=== PATIENT | female | born 1945 | race Caucasian/White ===

== ENCOUNTER 2018-08-13 22:01 | Inpatient (IN) ==
[2018-08-13] MEDS ORDERED: KETAMINE ONE (22:21)
[2018-08-13] MEDS ORDERED: KETAMINE IV ONE (22:23)
[2018-08-13] MEDS ORDERED: VERSED ONE (22:27)
[2018-08-13] MEDS ORDERED: VERSED IV ONE ×3 (22:27→22:54)
[2018-08-13] MEDS: LEVOPHED 8 MG in D5 1/2 NS 250 ML IV SCH (22:40)
[2018-08-13 22:49] LABS: ALLEN TEST YES; BLOOD TYPE ARTERIAL; HCO3-(ACT) 21.1 mmoll (20.0-26.0); METHB 0.6 % (0.0-1.5); O2(CT) 12.8 mL/dL (15.0-23.0); O2HB 97.7 % (95.0-99.0); PCO2(98.6) 33 mmHg (35-45); PO2(98.6) 191 mmHg (60-100); SAMPLE BLOOD; SAO2 100.3 % (95.0-100.0); pH(98.6) 7.38 (7.35-7.45)
[2018-08-13 22:59] LABS: BASO# 0.02 X1000 (0.0-0.2); BASO% 0.1 % (0.0-0.8); EOS# 0.01 X1000 (0.0-0.7); HEMATOCRIT 39.1 % (37.0-47.0); HEMOGLOBIN 11.6 g/dL (12.0-16.0); IMM GRAN% 0.4 % (0.0-0.5); LYMPH# 1.14 X1000 (1.2-3.4); LYMPH% 5.1 % (20.5-51.1); MCH 25.6 PG (27-31); MCHC 29.7 g/dL (33-37); MCV 86.1 FL (81-99); MONO# 0.48 X1000 (0.11-0.59); MONO% 2.2 % (1.7-9.3); NEUT# 20.51 X1000 (1.4-6.5); NEUT% 92.2 % (42.2-75.2); PLT 157 X1000 (130-400); RBC 4.54 XMIL (4.2-5.4); RDW 19.1 % (11.5-14.5); WBC 22.26 X1000 (4.8-10.8)
[2018-08-13] MEDS ORDERED: VERSED 100 MG in NS 80 ML IV SCH (23:00)
[2018-08-13 23:01] LABS: URINE SOURCE CATH
[2018-08-13] MEDS ORDERED: NS 2,000 ML ONE (23:03)
[2018-08-13 23:04] LABS: BILIRUBIN URINE NEGATIVE (NEGATIVE); BLOOD URINE NEGATIVE (NEGATIVE); COLOR YELLOW; GLUCOSE URINE NEGATIVE (NEGATIVE); KETONE URINE NEGATIVE (NEGATIVE); LEUKOCYTES URINE NEGATIVE (NEGATIVE); NITRITE URINE NEGATIVE (NEGATIVE); PH URINE 5.5; PROTEIN URINE 30 mg/dL (NEGATIVE); SP GRAVITY URINE 1.025; TURBIDITY URINE CLEAR (CLEAR); UROBILINOGEN URINE NORMAL (NORMAL)
[2018-08-13 23:07] LABS: MODALITY AMBU BAG
[2018-08-13] MEDS ORDERED: NS 1,000 ML, NS 1,000 ML IV ONE ×2 (23:07)
[2018-08-13] MEDS ORDERED: NS 1,000 ML IV ONE ×2 (23:10→23:11)
[2018-08-13 23:11] LABS: LARGE PLATELETS 1+; LYMPHS 6 % (21-51); MONO 4 % (1-9); SEGS 90 % (42-75)
[2018-08-13 23:13] LABS: UR EPITHELIAL CELLS <10 /HPF (<10); URINE RBC <10 /HPF (<10); URINE WBC <10 /HPF (<10)
[2018-08-13 23:14] LABS: URINE BACTERIA 1+ /HPF; URINE CASTS WAXY PRESENT; URINE YEAST PRESENT
[2018-08-13 23:15] LABS: URINE CRYSTALS NONE SEEN; URINE SMALL ROUND CELLS NONE SEEN
[2018-08-13 23:32] LABS: ALB/GLOB RATIO 0.5; ALBUMIN 2.3 g/dL (3.5-5.0); CALCIUM 10.7 mg/dL (8.8-10.2); CREATININE 2.3 mg/dL (0.5-0.9); MAGNESIUM 2.7 mg/dL (1.5-2.7); PHOSPHORUS 4.7 mg/dL (2.7-4.5); POTASSIUM 3.9 mmol/L (3.5-5.1); TOTAL BILIRUBIN 0.82 mg/dL (0.20-1.00); TOTAL PROTEIN 7.4 g/dL (6.3-8.3)
[2018-08-13] MEDS ORDERED: 1/2 NS 1,000 ML ONE (23:39)
[2018-08-14] MEDS ORDERED: 1/2 NS 1,000 ML IV ONE (00:32)
[2018-08-14] MEDS ORDERED: PROTONIX IV SCH (02:00)
[2018-08-14] MEDS ORDERED: HEPARIN SUBQ SCH (02:00)
[2018-08-14 02:51] LABS: UR AMPHETAMINES QUAL NONE DETECTED (NONE DETECT); UR BARBITUATES QUAL NONE DETECTED (NONE DETECT); UR BENZODIAZEPIN QUAL PRESUMPTIVE POSITIVE (NONE DETECT); UR CANNABINOIDS QUAL NONE DETECTED (NONE DETECT); UR COCAINE QUAL NONE DETECTED (NONE DETECT); UR METHADONE QUAL NONE DETECTED (NONE DETECT); UR OPIATES QUAL NONE DETECTED (NONE DETECT); UR OXYCODONE QUAL PRESUMPTIVE POSITIVE (NONE DETECT); UR PCP QUAL NONE DETECTED (NONE DETECT)
[2018-08-14 02:56] LABS: AGAP 21; BUN 88 mg/dL (8-22); CALCIUM 9.5 mg/dL (8.8-10.2); CHLORIDE 131 mmol/L (98-107); COSMO 368; CREATININE 2.3 mg/dL (0.5-0.9); GLUCOSE 212 mg/dL (70-104); POTASSIUM 3.6 mmol/L (3.5-5.1); TCO2 18 mmol/L (25-35)
[2018-08-14 02:58] LABS: SODIUM 168 mmol/L (136-145)
[2018-08-14] MEDS: MERREM 500 MG in NS 50 ML IV SCH ×3 (03:12→18:28)
[2018-08-14] MEDS: ZYVOX 600 MG/D5W 600 MG/300 ML IVPB IV SCH ×2 (03:12→13:33)
[2018-08-14] MEDS: SODIUM CHLORIDE 0.9% INJ SCH (03:13)
[2018-08-14 04:35] LABS: BLOOD TYPE ARTERIAL; SAMPLE BLOOD
[2018-08-14 04:36] LABS: ALLEN TEST YES; BE -4.1 mmoll (-3.0-3.0); HCO3-(ACT) 21.7 mmoll (20.0-26.0); METHB 1.1 % (0.0-1.5); O2(CT) 14.8 mL/dL (15.0-23.0); O2HB 95.2 % (95.0-99.0); PCO2(98.6) 37 mmHg (35-45); PO2(98.6) 89 mmHg (60-100); SAO2 98.1 % (95.0-100.0); SRATE 14 BPM; TVOL 450 mL; pH(98.6) 7.36 (7.35-7.45)
[2018-08-14 04:40] LABS: MODALITY VENTILATOR
[2018-08-14 04:49] LABS: BASO# 0.03 X1000 (0.0-0.2); BASO% 0.1 % (0.0-0.8); EOS# 0.01 X1000 (0.0-0.7); HEMATOCRIT 35.3 % (37.0-47.0); HEMOGLOBIN 10.5 g/dL (12.0-16.0); IMM GRAN# 0.14 X1000 (0.0-0.04); IMM GRAN% 0.4 % (0.0-0.5); LYMPH# 1.19 X1000 (1.2-3.4); LYMPH% 3.8 % (20.5-51.1); MCH 25.5 PG (27-31); MCHC 29.7 g/dL (33-37); MCV 85.7 FL (81-99); MONO# 0.66 X1000 (0.11-0.59); MONO% 2.1 % (1.7-9.3); NEUT# 29.65 X1000 (1.4-6.5); NEUT% 93.6 % (42.2-75.2); PLT 143 X1000 (130-400); RBC 4.12 XMIL (4.2-5.4); WBC 31.68 X1000 (4.8-10.8)
[2018-08-14 04:52] LABS: INR 2.64
[2018-08-14 04:53] LABS: PTT 37.9 Seconds (22.3-41.8)
[2018-08-14 05:21] LABS: ALB/GLOB RATIO 0.4; ALBUMIN 1.9 g/dL (3.5-5.0); CALCIUM 8.8 mg/dL (8.8-10.2); MAGNESIUM 2.2 mg/dL (1.5-2.7); TOTAL BILIRUBIN 0.68 mg/dL (0.20-1.00); TOTAL PROTEIN 6.5 g/dL (6.3-8.3)
--- NOTE | 2018-08-14 05:58 | HISTORY AND PHYSICAL ---
CHIEF COMPLAINT: Mental status changes. HISTORY OF PRESENT ILLNESS: Ms. Hatch is a 73-year-old, female with a past medical history of pancreatic cancer, diabetes, upper extremity DVT, recent GI bleed one and a weeks ago. She was brought by her daughter via EMS due to mental status changes. As per the daughter, this patient was stable yesterday. The daughter is the one providing all the information because the patient is already intubated. Apparently, the last time she saw this patient normal was at 1 a.m. on 08/13/2018, but today, in the morning around 9 a.m., this patient was confused. She was sleepy, really hard to wake up, and she was not eating or drinking too much to the point that she only took some sips of her protein shake and she took some of her medications in the morning but then she could not take more than that. In the emergency department, we found out that this patient's vital signs were really low and she was placed on pressors. Also, she received fluids. Her pulse was stable. She was basically unresponsive and placed on mechanical ventilation. Lactate level elevated at 5.1. Sodium level 170, creatinine 2.3. Leukocytosis as well. This patient will be admitted to the intensive care unit. She will be placed on broad-spectrum antibiotics. We will recheck the lab work at this moment and then at 6 a.m. again. Pulmonary department will be consulted. Overall, her prognosis is guarded due to her age and past medical history of cancer and comorbidities. REVIEW OF SYSTEMS: Skin: She has multiple lesions on her back, mostly at her sacral area and gluteal area. It looks like excoriation and/or pressure ulcers. Respiratory: She has some rhonchi bilaterally and breath sounds are decreased at the bases. Musculoskeletal: Decreased muscle mass. The rest of the 14 points of the review of systems were checked. All of them were negative except as per HPI. PAST MEDICAL HISTORY: Recent rectal bleed around 1-1/2 weeks ago, upper extremity DVT treated with Lovenox which has been stopped due to rectal bleed, pancreatic cancer without any kind of treatment so far. Apparently, she has an appointment with her cancer doctor in [place] next on 08/19/2018. Diabetes. FAMILY HISTORY: Noncontributory. PAST SURGICAL HISTORY: Hysterectomy, middle finger surgery, and exploratory laparoscopic procedure due to bowel obstruction. SOCIAL HISTORY: This patient lives with her daughter. She used to be a heavy smoker, smoking 3 packs a day of cigarettes, but she stopped smoking 20 years ago. 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 PHYSICAL EXAMINATION: VITAL SIGNS: Right now, pulse 74, respiratory rate 17, blood pressure 90/70, oxygen saturation 100% on mechanical ventilation. HEENT: Head normocephalic. No trauma. PERRLA. NECK: Supple. I do not see any JVD. Central trachea. CHEST: Coarse breath sounds bilaterally with generalized rhonchi and decreased breath sounds at the bases. ABDOMEN: Soft. Nondistended. I do feel a mass in the periumbilical area. I do believe its inside the abdominal wall on the right side, measuring around 4 x 1.5 cm. No secretion. Positive bowel sounds. EXTREMITIES: There is 2 to 3+ lower extremity edema. No clubbing but the lower extremities have cyanosis bilaterally. We did not find any pulse, even with the Doppler. NEUROLOGICAL EXAMINATION: The patient is on mechanical ventilation and sedated. BACK: With multiple ulcers, mostly at the level of the sacral area and gluteal area, with some redness. No secretions. LABORATORY: WBC 22.6, hemoglobin 11.6, hematocrit 39.1, platelets 157,000. Sodium 170, potassium 3.9, chloride 130, bicarbonate 22, BUN 78, creatinine 2.3, glucose 219, calcium 10.7. AST 63, ALT 43, alkaline phosphatase 134. ASSESSMENT AND PLAN: 1. Metabolic encephalopathy. As per the daughter, who is a poor historian, this patient was fine yesterday and today in the morning, she started having confusion, and she was not eating or drinking too much. The patient was getting worse during the day. She has electrolyte imbalance, acute kidney injury. I do not see any big source of infection. I do not think she has pneumonia but she has some lesions on her back. Urinalysis looks fine but her WBC is also elevated so I will place this patient on broad-spectrum antibiotics. 2. Shock. She has been placed on Levophed at the emergency department. She received some fluid which has been changed from normal saline to half normal saline because of the hypernatremia. I will check the blood sodium again. Lactate level is elevated at 5.1. 3. Hypernatremia. She already received some fluid in the emergency department and has been changed to half normal saline. I will check a sodium level right now to see how she does and if she is doing better, I will continue with the same treatment. Otherwise, I will switch it to D5 water. 4. Acute kidney injury. I do have a creatinine from May 2018 that was completely normal at 0.7. Today, the creatinine is 2.3. We have placed a Greer catheter. Likely , this represents an acute tubular necrosis. We will continue with the intravenous fluids. We will recheck the creatinine again and I will follow closely the urine output. 5. Leukocytosis. This patient has been placed on broad-spectrum antibiotics. I have requested blood culture and urine culture. 6. Respiratory failure. Also, this patient has been intubated due to her severe metabolic encephalopathy to protect the airway. Pulmonary department has been consulted. 7. Elevated liver function tests, likely secondary to shock liver. We will monitor. 8. Pancreatic cancer. Apparently, this patient has not been started on any kind of treatment. She has an oncologist apparently in [place], [place]. 9. History of gastrointestinal bleed. This is a recent diagnosis. She had a gastrointestinal bleed 1-1/2 weeks ago. We will avoid blood thinners for now and I cannot put VIVIEN hoses or put sequential compression devices on because of her bilateral lower extremity cyanosis. 10. History of deep venous thrombosis at the level of the upper extremity. For now, we will just monitor. Apparently, that was secondary to a peripherally inserted central catheter line. 11. Diabetes. I have placed this patient on a sliding scale insulin and pattern of blood sugar. 12. This patient is remarkably sick. I had a conversation with the daughter. I will also discuss her resuscitation status. For now, she wants her mom to be Full Code. cc: Daniel Valentino MD MTDD
--- NOTE | 2018-08-14 06:09 | Diag Imaging Result Doc PS360 ---
EXAM: CT HEAD W/O CONTRAST HISTORY: ams TECHNIQUE: CT head without contrast COMPARISON: 03/13/2018 FINDINGS: No parenchymal hemorrhage. No epidural or subdural hematoma. No subarachnoid hemorrhage. No mass identified on this noncontrasted exam. No hydrocephalus. No sinus opacification. IMPRESSION: No hemorrhage. Negative brain CT without contrast. A preliminary report was given at 12:26 AM. This exam was performed using automated exposure control, adjustment of mA or kV according to patient size, and/or use of iterative reconstruction technique. Electronically signed by Kevin Puga 08/14/2018 6:06 AM
[2018-08-14] MEDS: HUMULIN R SUBQ SCH ×5 (06:26→22:39)
[2018-08-14] MEDS: TEARISOL OPH SOLUTION BOTH EYES PRN (06:27)
--- NOTE | 2018-08-14 07:21 | Diag Imaging Result Doc PS360 ---
EXAM: CHEST-PORTABLE 08/14/2018 HISTORY: Mechanical ventilation TECHNIQUE: AP portable at 0555 COMMENT: There is an endotracheal tube with its tip at thoracic inlet and an NG tube which is looped into the stomach and then back up into the esophagus. There are increased interstitial markings in both lung bases with apparent subsegmental atelectasis particularly in the left lower lobe. The inspiration is less optimal than on 08/13/2018. IMPRESSION: Mild pulmonary edema and left lower lobe atelectasis versus pneumonia. Electronically signed by Eugene Donaldson 08/14/2018 7:19 AM
--- NOTE | 2018-08-14 07:24 | EKG Report ---
Test Performed on : 08/13/2018 10:09:11 PM Test Reason : AMS Blood Pressure : / mmHG Vent. Rate : 105 BPM Atrial Rate : 064 BPM P-R Int : 126 ms QRS Dur : 060 ms QT Int : 476 ms P-R-T Axes : 039 067 069 degrees QTc Int : 629 ms Undetermined rhythm Low voltage QRS ST elevation, consider early repolarization, pericarditis, or injury ST & T wave abnormality, consider anterolateral ischemia Prolonged QT Abnormal ECG No previous ECGs available Unconfirmed Result
--- NOTE | 2018-08-14 07:32 | Diag Imaging Result Doc PS360 ---
EXAM: CHEST/ABD TUBE PLACEMENT 08/13/2018 HISTORY: ett placement TECHNIQUE: AP portable at 2240 COMMENT: There is an NG tube with its tip below the diaphragm apparently in the stomach. There is an endotracheal tube with its tip at the thoracic inlet. There is ill-defined opacity in the left lower lobe consistent with bronchopneumonia. IMPRESSION: Left lower lobe pneumonia. Electronically signed by Eugene Donaldson 08/14/2018 7:30 AM
[2018-08-14 09:30] LABS: ALB/GLOB RATIO 0.4; CALCIUM 8.8 mg/dL (8.8-10.2); CREATININE 2.4 mg/dL (0.5-0.9); POTASSIUM 3.7 mmol/L (3.5-5.1); TOTAL BILIRUBIN 0.56 mg/dL (0.20-1.00); TOTAL PROTEIN 7.4 g/dL (6.3-8.3)
[2018-08-14] MEDS: ALBUMIN 25% IV SCH ×3 (10:09→18:28)
[2018-08-14] MEDS: LEVOPHED 8 MG in D5 1/2 NS 250 ML IV SCH (10:10)
[2018-08-14] MEDS: D5W 1,000 ML IV SCH ×4 (10:10→23:22)
--- NOTE | 2018-08-14 10:44 | PROGRESS NOTE ---
DATE: 08/14/2018 OVERNIGHT EVENTS: Ms. Hatch was admitted for suspected septic shock, acute encephalopathy, obtundation, acute respiratory failure, needing intubation, mechanical ventilation, profound metabolic encephalopathy, and severe hypernatremia. Overnight, she was continued on intravenous fluids and broad-spectrum antibiotics. SUBJECTIVE: At the time of my evaluation, patient is obtunded. She is off sedative intravenous midazolam since about 2.5 hours. Currently, vitals evaluation suggest her temperature is 99.3. She is tachycardic with pulse of 96 per minute. She is maintaining MAP more than 65, requiring norepinephrine only minimal. She is on 100% mechanical ventilation. OBJECTIVE: General: Obtunded, does not appear in any acute distress. Pupils: Bilateral round and reacting. Lungs: Air entry bilaterally equal. No wheeze, rhonchi, or crackles. Cardiovascular: S1, S2 normal. Tachycardic. No murmur, rub, or gallop. Abdomen: Soft, nontender. Active bowel sounds. She just had a bowel movement. The stool appears dark brown without any obvious blood or melena. It is liquidy. Lower extremity: She has bilateral mild pitting lower extremity edema, left more than right. Lines: She has a urine catheter. She has an external jugular vein intravenous catheter. Neurologic: She is obtunded. She is not responding to painful stimuli in the upper extremities. LABS: Suggest persistent leukocytosis, normocytic anemia, normal platelet count, elevated INR, pO2 of 89 on 100% FiO2 suggesting of wide arterial alveolar gradient, severe hypernatremia, which is improving. Severe hyperchloremia, acute kidney injury with minimum urine output suggesting acute tubular necrosis, persistent transaminitis, persistent lactic acidosis. Blood cultures have not been drawn yet. IMAGING: Head CT had suggested no hemorrhage. Chest x-ray had suggested left lower lobe atelectasis, infiltrate. ASSESSMENT AND PLAN: 1. Suspected septic shock with unclear source of infection. She does have left lower lobe haziness, however, no well-defined consolidation. So pneumonia, as a source of infection, could not be totally ruled out. Urine culture is in lab. Continue intravenous linezolid and intravenous meropenem. Try and collect blood cultures to get the final results and modify antibiotics accordingly. 2. Acute toxic metabolic encephalopathy, likely in the setting of septic shock, severe hypernatremia. 3. Uremia with possible contribution from hepatic encephalopathy. Continue to address underlying cause. 4. Acute respiratory failure with severe alveolar-arterial gradient. Continue mechanical ventilation. Pulmonology on board. I will get ultrasound lower extremity to rule out deep vein thrombosis and possible venous thromboembolism. 5. Coagulopathy could be in the setting of acute liver failure. I will follow up D-dimer and monitor her for disseminated intravascular coagulation. 6. Severe hypernatremia and hyperchloremia, could be in the setting of severe free water volume depletion because of poor p.o. intake. The history is uncertain. I will try and get in touch with the patient's daughter to evaluate for that. Continue D5 water and monitor frequent electrolytes. 7. Acute kidney injury with likely acute tubular necrosis, likely in the setting of profound hypotension and septic shock that she presented with. Monitor input and output with Greer catheter and serial basic metabolic panels. 8. Recent diagnosis off pancreatic cancer. Apparently, she has not been started on any kind of therapy, as per the family and previous documentation. Aware. In the future, I will consider consulting Oncology if needed. 9. History of gastrointestinal bleed, about 1 to 2 weeks ago. Continue intravenous Protonix. I will make it b.i.d. 10. History of deep venous thrombosis of upper extremity associated with peripherally inserted central catheter line aware. I will avoid anticoagulation at the moment considering her coagulopathy. 11. History of diabetes. Continue blood sugar checks every 4 hours. If needed, I will start her on sliding scale insulin. 12. More than 30 minutes of critical care time was spent in taking of this patient. I have daughter's contact information. I will try and reach out to her. Apparently, there has not been any family member visiting her today. I would also consult palliative care considering her critical condition and recent diagnosis of pancreatic cancer. According to previous documentation, she is full code. cc: Rickie Saab MD
[2018-08-14] MEDS ORDERED: NS 250 ML ONE (11:17)
--- NOTE | 2018-08-14 11:24 | PULMONOLOGY CONSULTATION ---
DATE: 08/14/2018 REQUESTING PHYSICIAN: Dr. Saab. REASON FOR CONSULTATION: Respiratory failure. HISTORY OF PRESENT ILLNESS: Ms. Hatch is a 73-year-old white female who was evaluated in our hospital in May complaining of abdominal pain. CT scan of the abdomen and pelvis was consistent with severe sigmoid colitis along with significant abnormality of the pancreas consistent with pancreatitis or neoplasm. She was evaluated by Dr. Damon who discussed the case with Dr. Shepard who had seen her on a previous admission in [place] and felt she had pancreatic necrosis. History after that visit is not known. The patient presented to our Emergency Room by EMS. She was completely unresponsive. She was in shock. She was intubated and initiated on mechanical ventilation. PAST MEDICAL HISTORY AND PROBLEM LIST: 1. Abnormal pancreas with possible pancreatic cancer. By report she is scheduled to be evaluated in [place] in the next 5 days. 2. Coronary artery disease with prior myocardial infarction. 3. Diabetes mellitus. 4. History of deep vein thrombosis associated with a PICC line in the left upper lobe. 5. History of glaucoma. 6. Status post hysterectomy. 7. Status post finger surgery. 8. Status post colon resection. SOCIAL HISTORY: No alcohol use listed. By report she stopped smoking in 1999. FAMILY HISTORY: Not available. REVIEW OF SYSTEMS: Not available but nursing intake indicates frequent diarrhea along with significant weight loss. PHYSICAL EXAMINATION: General: Physical exam reveals a frail, chronically ill- appearing, white female with evidence of temporal wasting on mechanical ventilation. She is currently on Levophed for shock. By report she has received 3 L of saline resuscitation although this is not well documented. Vital Signs: BP 112/78, heart rate 99, respiratory rate 16, and oxygen saturation 97% on mechanical ventilation. HEENT: Pupils are equal but sluggish. Oropharynx appears dry. NECK: Supple. Respiratory: The chest reveals coarse rhonchi throughout all lung esposito. Cardiac: Regular rate. Normal S1. Normal S2. Gastrointestinal: The abdomen is soft with no bowel sounds present. Extremities: The extremities reveal edema of the left leg suspicious for deep vein thrombosis. LABORATORIES: White blood count is 31.7, hemoglobin 10.5, and platelet count 143,000. Sodium is 163, potassium 3.7, chloride 129, bicarbonate 21, BUN 93, creatinine 2.4, AST 297, ALT 130, and alkaline phosphatase 119. CEA level is 8.2. Arterial blood gas reveals a pH of 7.36, pCO2 of 37, and pO2 of 89 with a lactate on admission of 5.1 and a current lactate of 2.7. Head CT reveals no acute changes. Chest x-ray reveals an endotracheal tube in good position. Left lower lobe pneumonia. IMPRESSION: A 73-year-old with the diagnosis of pancreatic cancer (details confirming this diagnosis are limited) who is admitted with acute hypoxemic respiratory failure , pneumonia, septic shock, hypernatremia, acute renal failure, leukocytosis, dehydration, diarrhea, deep vein thrombosis (patient is already anticoagulated with an INR of 2.6), and severe protein calorie malnutrition. Her prognosis appears to be guarded to very poor. RECOMMENDATIONS: 1. Continue full ventilatory support. 2. Collect blood cultures for septic shock. 3. Obtain sputum for WASHER CARCASS. 4. Continue resuscitation. The patient has been initiated on D5W and her sodium will be followed. 5. Venous Dopplers of the left lower extremity. 6. Prognosis is guarded to poor. Anticipate the need for end of life discussions with the family. Time spent and critical care management: 1+ hours cc: Jeremiah Garcia MD [facility]
--- NOTE | 2018-08-14 11:26 | PROGRESS NOTE ---
DATE: 08/14/2018 I called the patient's daughter, Ms. Salazar, at [phone]. I informed her about Ms. Hatch's critical condition. I informed her about Ms. Hatch's likely poor prognosis considering multiple comorbidities and current critical condition. I answered all of her questions. Currently Ms. Salazar wanted Ms. Hatch to be a full code as Ms. Hatch had previously expressed her wishes that she wanted to be a full code. However, the patient's daughter is reconsidering course of care. I will also consult Palliative Care. cc: Rickie Saab MD
[2018-08-14 15:28] LABS: CALCIUM 8.9 mg/dL (8.8-10.2); CREATININE 2.4 mg/dL (0.5-0.9)
[2018-08-14] MEDS ORDERED: MORPHINE IV PRN (17:05)
[2018-08-14] MEDS: PROTONIX IV SCH (18:28)
--- NOTE | 2018-08-14 20:11 | PROGRESS NOTE ---
DATE: 08/14/2018 SUBJECTIVE: I was informed by the Palliative Care team that after Palliative Care team's discussion with patient's daughter who is a surrogate decision maker the patient's daughter has decided to make the patient DNR level 1. However, I could not be present during this conversation. I was also informed by the nursing team that after stopping midazolam drip now, the patient has started becoming a little restless and is coughing on ventilator, so I have ordered IV p.r.n. morphine. I will try and go to bedside again during the day and try and talk with patient's daughter in person with whom I have talked on phone earlier. cc: Rickie Saab MD
--- NOTE | 2018-08-14 22:23 | PROGRESS NOTE ---
DATE: 08/14/2018 SUBJECTIVE: I went to bedside and talked with the patient's daughter at bedside. I also looked at some of the test results that she showed me on her cellphone. On the cellphone, it was listed that there was a diagnosis of pancreatic carcinoma with metastasis to liver and peritoneal carcinomatosis made. However, I have requested official records from [facility] and [facility]. I was also given the provided following history by the patient's daughter at bedside that the patient has had massive abdominal ascites. The ascites was worsening for which she had gone to [place] initially, and they had made a diagnosis of metastatic adenocarcinoma without any further diagnosis, so she had eventually gone to [facility] where extensive testing was done including ultrasound-guided paracentesis, upper endoscopy, and a biopsy was taken. I am unsure from what place. 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 The patient's daughter also informs me that she was diagnosed with PICC-line associated DVT and was supposed to be on enoxaparin subcutaneous. However, the patient had developed GI bleed for which she was again taken to [facility], and she had undergone sigmoidoscopy, and it was diagnosed that she had diverticulosis. I have requested further documentation from both the medical centers before I can confirm these histories. Meanwhile, I will continue with the current treatment regimen. I also confirmed the code status. The patient is DNR level 1. The daughter was tearful, and I offered my support. cc: Rickie Saab MD
[2018-08-14 23:32] LABS: CALCIUM 8.4 mg/dL (8.8-10.2); CREATININE 2.3 mg/dL (0.5-0.9); POTASSIUM 2.8 mmol/L (3.5-5.1)
[2018-08-14] MEDS ORDERED: POTASSIUM CHLORIDE 40 MEQ/SWI 40 MEQ/100 ML IVPB IV ONE (23:57)
[2018-08-14] MEDS ORDERED: POTASSIUM CHLORIDE 10% LIQUID PO ONE (23:57)
[2018-08-15] MEDS: HUMULIN R SUBQ SCH ×6 (00:49→21:00)
[2018-08-15] MEDS: ZYVOX 600 MG/D5W 600 MG/300 ML IVPB IV SCH ×2 (00:59→13:14)
[2018-08-15] MEDS: MERREM 500 MG in NS 50 ML IV SCH ×3 (02:21→18:30)
[2018-08-15] MEDS: D5W 1,000 ML IV SCH ×4 (04:50→23:30)
[2018-08-15 05:28] LABS: HEMOGLOBIN A1C 6.4 % (4.8-6.0)
[2018-08-15 05:30] LABS: ALLEN TEST YES; BE -5.6 mmoll (-3.0-3.0); BLOOD TYPE ARTERIAL; HCO3-(ACT) 20.6 mmoll (20.0-26.0); METHB 1.1 % (0.0-1.5); O2(CT) 11.2 mL/dL (15.0-23.0); O2HB 96.7 % (95.0-99.0); PCO2(98.6) 26 mmHg (35-45); PO2(98.6) 102 mmHg (60-100); SAMPLE BLOOD; SRATE 15 BPM; THB 8.1 g/dL (11.5-17.4); TVOL 600 mL; pH(98.6) 7.44 (7.35-7.45)
[2018-08-15 05:31] LABS: INR 3.17; PROTIME 34.7 Seconds (11.0-16.0)
[2018-08-15 05:32] LABS: PTT 52.5 Seconds (22.3-41.8)
[2018-08-15 05:34] LABS: MODALITY VENTILATOR
[2018-08-15 05:35] LABS: ALB/GLOB RATIO 0.7; ALBUMIN 2.6 g/dL (3.5-5.0); CALCIUM 8.8 mg/dL (8.8-10.2); CREATININE 2.2 mg/dL (0.5-0.9); TOTAL BILIRUBIN 0.63 mg/dL (0.20-1.00); TOTAL PROTEIN 6.3 g/dL (6.3-8.3)
[2018-08-15 05:43] LABS: D-DIMER 15.19 ug/mLFEU (0.0-0.52)
[2018-08-15 05:57] LABS: PHOSPHORUS 1.6 mg/dL (2.7-4.5)
[2018-08-15 06:25] LABS: HEMATOCRIT 24.7 % (37.0-47.0); HEMOGLOBIN 7.6 g/dL (12.0-16.0); MCH 25.8 PG (27-31); MCHC 30.8 g/dL (33-37); MCV 83.7 FL (81-99); PLT 91 X1000 (130-400); RBC 2.95 XMIL (4.2-5.4); WBC 14.01 X1000 (4.8-10.8)
--- NOTE | 2018-08-15 06:54 | Diag Imaging Result Doc PS360 ---
EXAM: CHEST-PORTABLE HISTORY: respiratory failure TECHNIQUE: Portable chest, single view COMPARISON: 08/14/2018 FINDINGS: No change in the endotracheal tube or nasogastric tube. There is a small left pleural effusion and there is underlying atelectasis or infiltrates in the lower left lung. The vessels are not distended. IMPRESSION: Stable left pleural effusion with basilar atelectasis versus infiltrates. Electronically signed by Kevin Puga 08/15/2018 6:52 AM
[2018-08-15] MEDS: SODIUM CHLORIDE 0.9% INJ SCH (07:32)
[2018-08-15] MEDS: PROTONIX IV SCH ×2 (07:32→17:50)
--- NOTE | 2018-08-15 09:11 | PULMONOLOGY PROGRESS NOTE ---
DATE: 08/15/2018 SUBJECTIVE: She remains off sedation and poorly responsive. She remains on vasopressors. She remains on mechanical ventilation. OBJECTIVE: BP 108/68, heart rate 76, respiratory rate 23. Oxygen saturation 100%. She is afebrile for the last 24 hours. HEENT: Pupils are equal but sluggish. Oropharynx appears dry. Neck is supple. Chest reveals coarse rhonchi bilaterally. Cardiac Exam: Regular rate. Normal S1, normal S2. Abdomen is soft, with positive bowel sounds. Extremities reveal trace edema. LABORATORIES: White blood count 14.1, hemoglobin 7.6, platelet count 91,000. Sodium 146, potassium 3.0, chloride 115. Bicarbonate 18. BUN 79, creatinine 2.2. Chest x-ray reveals bibasilar infiltrates and effusion and unchanged. Arterial blood gas, pH 7.44, pCO2 of 26, PO2 of 102. IMPRESSION: A 73-year-old with 1. Presumptive pancreatic cancer. 2. Acute hypoxemic respiratory failure. 3. Septic shock. 4. Pneumonia. 5. Hypernatremia. 6. Acute renal failure. 7. Diarrhea. 8. Bilateral deep vein thrombosis. 9. Patient continues to be in septic shock. Her prognosis is poor. RECOMMENDATIONS: 1. Continue ventilatory support. 2. Continue fluid resuscitation. 3. Continue current antibiotics. 4. Patient's prognosis is very poor. Her code status has been addressed to allow her to have a natural . I agree with these plans. Time spent in critical care management: 30+ minutes cc: Jeremiah Garcia MD [facility]
[2018-08-15] MEDS: TIMOPTIC 0.5% OPH SOLUTION BOTH EYES SCH (09:40)
[2018-08-15] MEDS ORDERED: CALMOSEPTINE OINTMENT TOP PRN (11:21)
[2018-08-15] MEDS: LEVOPHED 8 MG in D5 1/2 NS 250 ML IV SCH (11:46)
[2018-08-15] MEDS ORDERED: NS 250 ML ONE (12:25)
[2018-08-16] MEDS: HUMULIN R SUBQ SCH ×6 (00:05→20:50)
--- NOTE | 2018-08-16 00:19 | PROGRESS NOTE ---
DATE: 08/15/2018 HISTORY: Patient continues to be markedly encephalopathic and continues to require pressors to maintain blood pressure. She is responsive only to noxious stimuli. Remains intubated on some sedation. Patient is now DNR. Family continues to want all conservative measures pursued. REVIEW OF SYSTEMS: Unable to obtain secondary to patient mental status and intubation. LABS: White count is 14.0, hemoglobin 7.6, hematocrit 24.7, platelets 91,000. PT 34.7, INR 3.1, PTT 52.5. D-dimer 15. Fibrinogen 264. On ABG, pH 7.44, pCO2 26, PO2 102, O2 saturation 99% on vent with 70% FiO2. Sodium 146, potassium is 3, chloride 115, bicarb 18, BUN 79, creatinine 2.2, glucose 307. A1c 6.4. Calcium 8.8, phosphorus 1.6, bilirubin 0.6, AST 103, ALT 82. LDH 314, total protein 6.3, albumin 2.6, lactate 3.6, TSH 0.14 and free T4 1.6. Urinalysis essentially unremarkable. UDS, oxycodone and benzodiazepines. IMAGING: Chest x-ray with stable left pleural effusion, basilar atelectasis versus infiltrate. PHYSICAL EXAMINATION: Vitals: T-max 99.3 degrees, pulse 61, respiratory rate 23, blood pressure 84/71, O2 saturation 99% on ventilator. General: No acute distress, intubated and sedated, minimally responsive to noxious stimuli only. HEENT: Normocephalic, atraumatic. Thin. No cervical adenopathy. Cardiovascular: Regular rate and rhythm. No murmurs, rubs, or gallops noted. Pulmonary: Diffuse rhonchi bilaterally. No wheezing noted. Abdomen: Soft, nontender, nondistended. Bowel sounds positive. Extremities: Peripheral pulses intact. 1+ edema bilaterally. Neurologic: Exam limited by intubation and sedation. Pupils sluggish, but reactive. No facial asymmetry. Skin: Decubitus ulcers bandaged. Bandages clean, dry, intact. ASSESSMENT AND PLAN: 1. Acute hypoxemic respiratory failure secondary to pneumonia complicated by underlying malignancy and septic shock. Continue broad-spectrum antibiotics with linezolid and Merrem. Pulmonology following. Prognosis guarded at best, more likely quite poor. 2. Septic shock secondary to pneumonia. Continue broad-spectrum antibiotics as above. Continue pressors and wean as able. 3. Pancreatic cancer with metastasis. Records from [place]. Likely poor prognosis. The patient is a DNR. We will continue to discuss goals of care with family. 4. Acute kidney injury, likely acute tubular necrosis related to septic shock. Baseline approximately 2 months ago 0.7. Creatinine relatively stable currently. Monitor closely. 5. Transaminitis, likely shock liver. Appears to be trending down somewhat. 6. Coagulopathy. Patient with decrease in blood counts, decrease in platelets and increasing INR. Initially favored DIC given septic shock, but fibrinogen within normal limits. LDH was somewhat elevated. Haptoglobin pending. No signs or symptoms of active bleeding. We will transfuse 1 unit of red cells and monitor closely. If it is not improving in the morning with treatment of underlying sepsis then we will consider hematology consult. 7. Hypernatremia. She had a drop from August 13 to August 14 170 to 152, but more reasonable decreased from 152 to 146 subsequently. Continue to monitor closely. 8. Hypokalemia. We will replete and monitor. 9. Hyperglycemia. A1c 6.4. Current hyperglycemia may be a stress response. Continue high-dose sliding scale and may consider low-dose basal insulin if hyperglycemia continues. 10. Decubitus ulcers present on admission. Antibiotics as above. Continue wound care and monitoring. 11. Protein calorie malnutrition, likely severe: Patient with failure to thrive , poor p.o. intake, weight loss, skin breakdown as above. Nutritional status likely quite poor. If she does not improve rapidly, we will likely place NG tube and start tube feeds in the next day or 2. 12. Recent peripherally inserted central catheter line associated DVT. Full records not currently available, but reportedly she was placed on Lovenox initially but then developed significant GI bleed and so was discontinued. Not currently on anticoagulation because of decreasing hemoglobin and hematocrit, increased INR. Monitor closely. 13. Deep vein thrombosis prophylaxis, SCDs. 14. Disposition. Patient was initially full code but now DNR. She has underlying metastatic pancreatic cancer and multiorgan system failure. With this combination in addition to somewhat advanced age and poor nutritional status, her prognosis is likely grim. We will continue to discuss goals of care and current situation with the patient's daughter. [facility]
[2018-08-16] MEDS ORDERED: TYLENOL PR PRN (04:09)
[2018-08-16] MEDS: MERREM 500 MG in NS 50 ML IV SCH ×3 (04:13→18:00)
[2018-08-16] MEDS: ZYVOX 600 MG/D5W 600 MG/300 ML IVPB IV SCH ×2 (04:13→13:01)
[2018-08-16 04:45] LABS: BE -5.5 mmoll (-3.0-3.0); BLOOD TYPE ARTERIAL; HCO3-(ACT) 20.6 mmoll (20.0-26.0); METHB 1.2 % (0.0-1.5); O2(CT) 14.5 mL/dL (15.0-23.0); O2HB 96.2 % (95.0-99.0); PCO2(98.6) 23 mmHg (35-45); PO2(98.6) 93 mmHg (60-100); SAMPLE BLOOD; SAO2 98.7 % (95.0-100.0); SRATE 15 BPM; THB 10.6 g/dL (11.5-17.4); TVOL 600 mL; pH(98.6) 7.47 (7.35-7.45)
[2018-08-16 04:46] LABS: MODALITY VENTILATOR
[2018-08-16 04:59] LABS: BASO# 0.01 X1000 (0.0-0.2); BASO% 0.1 % (0.0-0.8); EOS# 0.19 X1000 (0.0-0.7); EOS% 1.2 % (0.0-10.0); HEMATOCRIT 32.1 % (37.0-47.0); HEMOGLOBIN 10.7 g/dL (12.0-16.0); IMM GRAN# 0.08 X1000 (0.0-0.04); IMM GRAN% 0.5 % (0.0-0.5); LYMPH# 0.98 X1000 (1.2-3.4); LYMPH% 6.1 % (20.5-51.1); MCH 26.1 PG (27-31); MCHC 33.3 g/dL (33-37); MCV 78.3 FL (81-99); MONO# 0.47 X1000 (0.11-0.59); MONO% 2.9 % (1.7-9.3); NEUT# 14.41 X1000 (1.4-6.5); NEUT% 89.2 % (42.2-75.2); PLT 84 X1000 (130-400); RDW 17.3 % (11.5-14.5); WBC 16.14 X1000 (4.8-10.8)
[2018-08-16 05:19] LABS: ALBUMIN 2.3 g/dL (3.5-5.0); CALCIUM 8.8 mg/dL (8.8-10.2); CREATININE 1.8 mg/dL (0.5-0.9); POTASSIUM 2.6 mmol/L (3.5-5.1); TOTAL BILIRUBIN 1.1 mg/dL (0.20-1.00); TOTAL PROTEIN 5.6 g/dL (6.3-8.3)
[2018-08-16 06:25] LABS: ALLEN TEST YES
--- NOTE | 2018-08-16 06:56 | Diag Imaging Result Doc PS360 ---
EXAM: CHEST-PORTABLE HISTORY: respiratory failure TECHNIQUE: Chest single view COMPARISON: 08/15/2018 FINDINGS: No change in endotracheal or nasogastric tubes. There is a small left pleural effusion and there are infiltrates in the left lower lobe. Right lung remains well expanded and clear. No cardiomegaly. IMPRESSION: Persistent left lower lobe pneumonia with atelectasis. Electronically signed by Kevin Puga 08/16/2018 6:54 AM
[2018-08-16 07:18] LABS: BANDS 7 % (0-1); LYMPHS 10 % (21-51); NRBC 2 % (0-0); SEGS 83 % (42-75)
[2018-08-16 08:16] LABS: INR 1.82
[2018-08-16] MEDS: PROTONIX IV SCH ×2 (08:31→17:36)
[2018-08-16] MEDS: D5W 1,000 ML IV SCH (08:53)
[2018-08-16] MEDS: POTASSIUM CHLORIDE 20 MEQ/SWI 20 MEQ/100 ML IVPB IV SCH ×2 (08:54→10:53)
[2018-08-16] MEDS: TIMOPTIC 0.5% OPH SOLUTION BOTH EYES SCH (08:55)
[2018-08-16] MEDS: NS 1,000 ML IV SCH (10:07)
--- NOTE | 2018-08-16 12:53 | Extremity Venous Study ---
PROCEDURE NAME: Venous U/S Bilateral Legs - 08/14/2018 BILATERAL LOWER EXTREMITY VENOUS STUDY: REQUESTING PHYSICIAN: Dr. Saab. ACTUARIAL TECHNICIAN: [place]. INDICATIONS: 1. Edema. 2. The patient is on the ventilator. EQUIPMENT: [employer] Vivid E9 ultrasound system with 9-LD transducer. FINDINGS: Images of the bilateral lower extremity venous systems were obtained in both sagittal and transverse planes. Doppler was used to evaluate veins for spontaneity, phasicity, respiratory excursion, and digital augmentation. RESULTS: Extensive DVT noted bilaterally and superficial venous thrombosis noted bilaterally. INTERPRETATION: Extensive bilateral deep venous and superficial venous thrombosis. Per the autobody technician's note, a report was given to Renaldo, nurse in the ICU, at 1 p.m. cc: MD Rickie Reddy MD
[2018-08-16] MEDS ORDERED: HEPARIN IV ONE (15:34)
[2018-08-16] MEDS ORDERED: HEPARIN IV PRN (15:34)
[2018-08-16] MEDS: HEPARIN 25,000 UNITS/D5W 25,000 UNIT/250 ML IV.SOLN IV SCH (17:29)
[2018-08-16] MEDS: LEVOPHED 8 MG in D5 1/2 NS 250 ML IV SCH (20:49)
--- NOTE | 2018-08-16 23:21 | PROGRESS NOTE ---
DATE: 08/16/2018 INTERVAL HISTORY: The patient's encephalopathy is essentially unchanged. Continues to require significant pressure support to maintain blood pressure. Remains responsive only to noxious stimuli. Remains intubated but off all sedation. She remains critically ill, but no new acute events overnight. REVIEW OF SYSTEMS: Unable to obtain secondary to patient's mental status and intubation. LABORATORIES: WBC 16.1, hemoglobin 10.7, hematocrit 32.1, platelets 84,000. INR 1.8, PTT 222. ABG with pH 7.4, pCO2 of 23, pO2 of 93, O2 saturation 98 on ventilator. Sodium 137, potassium 2.6, chloride 107, BUN 60, creatinine 1.8, glucose 111 to 234. Phosphorus 2.4. AST 40, ALT 59, alkaline phosphatase 113, total bilirubin 1.1, total protein 5.6, albumin 2.3, lactate 2.6, pre- albumin 3.5. PHYSICAL EXAMINATION: Vital signs: T-max 100.2 degrees, pulse 74, respirations 24, blood pressure 88/61, O2 saturation 100% on ventilator. General: No acute distress. Intubated, but off sedation. Minimally responsive to noxious stimuli only. HEENT: Normocephalic, atraumatic. No cervical adenopathy. Some anisocoria noted but pupils both briskly reactive. Cardiovascular: Regular rate and rhythm. No murmur, rub, or gallops. Pulmonary: Diffuse rhonchi essentially unchanged. No wheezing noted. Abdomen: Soft, nontender, nondistended. Bowel sounds positive. Extremities: Peripheral pulses intact. 1+ edema bilaterally essentially unchanged. Neurologic: Limited by intubation and mental status. Pupils uneven but reactive as above. No facial asymmetry. No clear focal deficits. Skin: Decubitus ulcers bandaged. Bandages clean, dry, intact. ASSESSMENT AND PLAN: 1. Acute hypoxemic respiratory failure secondary to pneumonia, complicated by underlying malignancy and septic shock, on broad-spectrum antibiotics with linezolid and Merrem. Pulmonary following. Slight improvement but prognosis remains poor overall. 2. Septic shock, secondary to pneumonia. As above, continue broad-spectrum antibiotics. Little success in weaning pressors thus far. 3. Pancreatic cancer with metastasis. Patient DNR. Will continue to discuss goals of care with family. 4. Extensive deep vein thromboses. Lower extremity multiple ultrasound showing extensive superficial and deep venous thromboses noted on recent ultrasound. Anticoagulation is somewhat problematic, given anemia, thrombocytopenic, and coagulopathy that is just now beginning to resolve. Will likely start on heparin drip and monitor very closely for signs of bleeding. 5. Acute kidney injury, likely acute tubular necrosis related to septic shock. Baseline creatinine 2 months ago 0.7. Creatinine finally beginning to improve slightly. 6. Transaminitis, likely shock liver. Does appear to be improving. 7. Coagulopathy. Patient with decreased blood counts, decreased platelets, and previously increasing INR. Initially favored disseminated intravascular coagulation, given septic shock. however, Fibrinogen was normal, and INR now improving. Hemoglobin and hematocrit improved status post 1 unit packed red blood cells 08/15. Suspect this may have been due to extensive DVTs. Heparin drip as above, and monitor closely for bleeding given previous discontinuation of lovenox because of diverticular bleeding. 8. Hypernatremia. Sodium decreased from August 13 to August 14 from 170 to 152, but more gradual decrease since then. Now within normal limits. D5 is continued and placing on normal saline at conservative rate, given extensive edema. 9. Hypokalemia. Remains low. Will further replete and continue monitoring. 10. Hyperglycemia. A1c 6.4. Reasonable control with high-dose sliding scale. 11. Decubitus ulcers, present on admission. Antibiotics as above. Continue wound care and monitoring. 12. Severe protein-calorie malnutrition. Patient with failure to thrive, poor p.o. intake, weight loss. Skin breakdown as above. Attempted to start tube feeds today, but the patient almost immediately began having gagging, and when residuals were checked, it was essentially everything that had been given to her. She does not appear likely to tolerate tube feeds. If the patient survives the next few days, then we will consider TPN. 13. Deep vein thrombosis prophylaxis. SCDs up to this point. About to start heparin drip. DISPOSITION: Patient was initially Full Code but now DNR. Underlying metastatic cancer with multiorgan system failure with only slight improvement. Now also with extensive DVTs with still some coagulopathy. Combined with age and poor nutritional status, her prognosis is extremely poor. We will continue to discuss goals of care with family. [facility]
[2018-08-17] MEDS ORDERED: D50W SYRINGE IV ONE (00:07)
[2018-08-17] MEDS: ZYVOX 600 MG/D5W 600 MG/300 ML IVPB IV SCH ×2 (02:24→13:38)
[2018-08-17] MEDS: HUMULIN R SUBQ SCH ×6 (02:31→20:11)
[2018-08-17] MEDS: MERREM 500 MG in NS 50 ML IV SCH ×2 (04:24→10:15)
[2018-08-17 05:00] LABS: ALLEN TEST YES; BE -6.2 mmoll (-3.0-3.0); BLOOD TYPE ARTERIAL; HCO3-(ACT) 20.1 mmoll (20.0-26.0); METHB 0.8 % (0.0-1.5); O2(CT) 15.4 mL/dL (15.0-23.0); O2HB 97.2 % (95.0-99.0); PCO2(98.6) 21 mmHg (35-45); PO2(98.6) 123 mmHg (60-100); SAMPLE BLOOD; SAO2 99.7 % (95.0-100.0); SRATE 15 BPM; THB 11.1 g/dL (11.5-17.4); TVOL 600 mL; pH(98.6) 7.48 (7.35-7.45)
[2018-08-17 05:01] LABS: MODALITY VENTILATOR
[2018-08-17] MEDS: PROTONIX IV SCH ×2 (06:16→17:45)
[2018-08-17] MEDS: NS 1,000 ML IV SCH (06:35)
[2018-08-17 06:40] LABS: HEMATOCRIT 31.2 % (37.0-47.0); HEMOGLOBIN 10.4 g/dL (12.0-16.0); MCH 26.3 PG (27-31); MCHC 33.3 g/dL (33-37); MCV 78.8 FL (81-99); PLT 84 X1000 (130-400); RBC 3.96 XMIL (4.2-5.4); RDW 17.6 % (11.5-14.5); WBC 18.66 X1000 (4.8-10.8)
[2018-08-17 06:42] LABS: INR 1.83; PROTIME 22.6 Seconds (11.0-16.0)
[2018-08-17 06:59] LABS: ALB/GLOB RATIO 0.5; ALBUMIN 1.8 g/dL (3.5-5.0); CALCIUM 8.6 mg/dL (8.8-10.2); CREATININE 1.5 mg/dL (0.5-0.9); POTASSIUM 3.3 mmol/L (3.5-5.1); TOTAL BILIRUBIN 1.43 mg/dL (0.20-1.00); TOTAL PROTEIN 5.5 g/dL (6.3-8.3)
[2018-08-17 07:01] LABS: MAGNESIUM 1.7 mg/dL (1.5-2.7); PHOSPHORUS 2.8 mg/dL (2.7-4.5)
--- NOTE | 2018-08-17 07:04 | Diag Imaging Result Doc PS360 ---
EXAM: CHEST-PORTABLE 08/17/2018 HISTORY: respiratory failure TECHNIQUE: AP portable at 0607 COMMENT: There is retrocardiac opacity in the left lower lobe and ill-defined opacity in the right lower lobe. The latter is worse than on the previous study of 08/16/2018. The endotracheal and NG tubes remain the left lower lobe opacity may be slightly improved. IMPRESSION: Waxing and waning basilar opacities as described. Electronically signed by Eugene Donaldson 08/17/2018 7:02 AM
[2018-08-17] MEDS ORDERED: POTASSIUM CHLORIDE 20% LIQUID PO ONE (08:46)
[2018-08-17] MEDS: TIMOPTIC 0.5% OPH SOLUTION BOTH EYES SCH (09:25)
[2018-08-17 12:07] LABS: ALLEN TEST YES; BE -7.9 mmoll (-3.0-3.0); BLOOD TYPE ARTERIAL; HCO3-(ACT) 18.8 mmoll (20.0-26.0); O2(CT) 15.3 mL/dL (15.0-23.0); O2HB 96.8 % (95.0-99.0); PCO2(98.6) 24 mmHg (35-45); PO2(98.6) 114 mmHg (60-100); SAMPLE BLOOD; SAO2 99.5 % (95.0-100.0); THB 11.1 g/dL (11.5-17.4); pH(98.6) 7.41 (7.35-7.45)
[2018-08-17 12:09] LABS: MODALITY VENTILATOR
--- NOTE | 2018-08-17 12:31 | PROGRESS NOTE ---
DATE: 08/17/2018 SUBJECTIVE: This patient is still on mechanical ventilation. She is opening her eyes spontaneously and it looks like she is following commands on and off. It has been hard to wean this patient off pressors, but we will continue to do that. She remains critically ill but not to the events overnight other than increasing a little bit the rate of the pressors. OBJECTIVE: Vital Signs: Temperature 98.8, pulse 71, respiratory rate 20, blood pressure 112/72, oxygen saturation 96% on mechanical ventilation. HEENT: Head normocephalic. No trauma. PERRLA. Neck: Supple. I do not see JVD. Central trachea. Chest: Coarse breath sounds bilaterally with some rhonchi, mostly at the bases. Decreased breath sounds at the bases as well. Abdomen: Soft, nondistended. There is some kind of mass in the periumbilical area but I do believe it is inside the abdominal wall on the right side and measuring around 4 x 1.5 cm. No secretion. Positive bowel sounds. Extremities: 1+ lower extremity edema. No clubbing. Mild cyanosis that compared with admission is much better. Neurologic: This patient is on mechanical ventilation. She is able to open her eyes spontaneously and she has been following commands on and off. Back: With multiple ulcers, mostly at the sacral area and gluteal area, and they are covered at this moment. LABORATORY: WBC 18.6, hemoglobin 10.4, hematocrit 31.2, platelets 84. PT 22.6 , INR 1.83. Sodium 136, potassium 3.3, chloride 104, bicarbonate 14, BUN 53, creatinine 1.5, calcium 8.6. Total bilirubin 1.43, AST 29, ALT 40, alkaline phosphatase 157, albumin 1.8. ASSESSMENT AND PLAN: 1. Metabolic encephalopathy. It looks like this is getting better and also this can be multifactorial. It could be related to an infectious process and also we have a urine toxicology that showed benzodiazepines and oxycodone. She seems to be following commands on and off. We will continue to monitor this patient closely. 2. Acute hypoxemic respiratory failure likely secondary to pneumonia complicated by underlying malignancy and septic shock. Continue broad-spectrum antibiotics with linezolid and Merrem. This patient is allergic to penicillins. She seems to be improving a little bit but she still has a poor prognosis overall. 3. Septic shock, likely secondary to pneumonia, continue broad-spectrum antibiotics. She is still on pressors and actually we will increase a little bit of pressors during the night because of low blood pressure. 4. Pancreatic cancer with possible metastasis. This patient has been placed DNR. Initially she was full code. Continue with same treatment and we will continue discussing the goals of care with the family. 5. Extensive DVT. A lower extremity ultrasound showed extensive superficial and DVT noted on recent ultrasound. She has been placed on heparin drip and for now I will continue with the same management. We will keep an eye on this because her platelet count is low at 84 and PT/INR is slightly elevated. 6. Acute kidney injury. BUN and creatinine seems to be getting better. We will continue for now with the same management. It looks like she is making some urine; compared with admission seems to be getting better. 7. Transaminitis likely secondary to shock liver. It was improving initially but now it went up a little bit again. We just need to continue monitoring this. 8. Coagulopathy. PT/INR are a little bit elevated and she is thrombocytopenic. She has been placed on heparin drip because of the lower extremity DVT. We will need to keep an eye on this and I believe this has been discussed with the daughter. 9. Hypernatremia. Initially her sodium level was around 170. Now within normal limits. We will continue with same management. 10.Hypokalemia. This patient has an NG tube. I will provide potassium. 11.Hyperglycemia. Hemoglobin A1c is 6.4. It has been reasonable controlled with sliding scale insulin. I will monitor her blood sugar for 24 more hours. Yesterday she had an episode of hypoglycemia and probably I will start giving her a long-acting insulin. 12.Severe protein calorie malnutrition, with failure to thrive. I will start this patient on a tube feeding today. Apparently we tried to do that yesterday and the patient was having some nausea. I will start with a really low dose with 5 mL to see how she does. Otherwise I will put her on Clinimix until we are able to extubate the patient. 13.DVT prophylaxis. Continue with heparin drip. 14.Decubitus ulcers. Continue with same management. 15.Thrombocytopenia. We will monitor this closely. Overall, this patient's prognosis is poor. She has a history of gastrointestinal bleed which is a recent diagnosis apparently two weeks ago. We have been avoiding blood thinners but given her current condition with DVTs we have placed this patient on heparin drip. Her hemoglobin has been stable. But even though her numbers look better, I believe she is still remarkably sick. This patient is DNR. ICU time: 35 minutes. cc: Daniel Valentino MD [facility]TDD
[2018-08-17] MEDS: ATIVAN IV PRN (15:07)
[2018-08-17] MEDS: MORPHINE IV PRN (15:08)
[2018-08-17] MEDS: HEPARIN 25,000 UNITS/D5W 25,000 UNIT/250 ML IV.SOLN IV SCH (17:45)
[2018-08-18] MEDS: HUMULIN R SUBQ SCH ×6 (00:27→22:13)
[2018-08-18] MEDS: MERREM 500 MG in NS 50 ML IV SCH ×4 (00:28→17:44)
[2018-08-18] MEDS: NS 1,000 ML IV SCH ×2 (00:28→12:40)
[2018-08-18] MEDS: ZYVOX 600 MG/D5W 600 MG/300 ML IVPB IV SCH ×2 (02:00→15:00)
[2018-08-18 05:26] LABS: ALLEN TEST YES; BE -8.1 mmoll (-3.0-3.0); BLOOD TYPE ARTERIAL; HCO3-(ACT) 18.6 mmoll (20.0-26.0); METHB 1.9 % (0.0-1.5); O2(CT) 14.7 mL/dL (15.0-23.0); O2HB 95.9 % (95.0-99.0); PCO2(98.6) 22 mmHg (35-45); PO2(98.6) 138 mmHg (60-100); SAMPLE BLOOD; SAO2 99.3 % (95.0-100.0); SRATE 15 BPM; THB 10.7 g/dL (11.5-17.4); TVOL 600 mL; pH(98.6) 7.43 (7.35-7.45)
[2018-08-18 05:27] LABS: MODALITY VENTILATOR
[2018-08-18] MEDS: PROTONIX IV SCH ×2 (05:41→17:44)
[2018-08-18 06:10] LABS: HEMATOCRIT 31.8 % (37.0-47.0); HEMOGLOBIN 10.5 g/dL (12.0-16.0); MCH 26.4 PG (27-31); MCV 80.1 FL (81-99); PLT 72 X1000 (130-400); RBC 3.97 XMIL (4.2-5.4); RDW 18.3 % (11.5-14.5); WBC 13.12 X1000 (4.8-10.8)
[2018-08-18 06:38] LABS: ALB/GLOB RATIO 0.5; ALBUMIN 1.9 g/dL (3.5-5.0); CALCIUM 8.1 mg/dL (8.8-10.2); CREATININE 1.7 mg/dL (0.5-0.9); POTASSIUM 3.8 mmol/L (3.5-5.1); TOTAL BILIRUBIN 0.76 mg/dL (0.20-1.00); TOTAL PROTEIN 5.6 g/dL (6.3-8.3)
--- NOTE | 2018-08-18 07:25 | Diag Imaging Result Doc PS360 ---
EXAM: CHEST-PORTABLE 08/18/2018 HISTORY: respiratory failure TECHNIQUE: AP portable at 0443 COMMENT: There is retrocardiac opacity and opacity partially obscuring both hemidiaphragms. This is worse than on the previous study of 08/17/2017. IMPRESSION: Worsened bibasilar atelectasis and/or pneumonia. Electronically signed by Eugene Donaldson 08/18/2018 7:22 AM
--- NOTE | 2018-08-18 08:00 | PROGRESS NOTE ---
DATE: 08/18/2018 SUBJECTIVE: This patient is still on mechanical ventilation. Apparently, yesterday, we tried to extubate this patient but she started with tachycardia and tachypnea so we held the extubation yesterday. Also, we contacted her daughter. She states that probably she will change the DNR status in case her mom needs intubation again but she is not here. No family member is at the bedside. OBJECTIVE: Vital Signs: Temperature 97.5 degrees, pulse 76, respiratory rate 18, blood pressure 127/84, oxygen saturation 100% on mechanical ventilation. HEENT: Head normocephalic. No trauma. PERRLA. Neck: Supple. No JVD. No masses. Central trachea. Chest: Coarse breath sounds bilaterally with some rhonchi, mostly at the bases. Decreased breath sounds at the bases as well. Abdomen: Soft, nondistended. She has a mass in the periumbilical area but I do believe it is inside the abdominal wall on the right side, measuring around 4 x 1.5 cm. No secretion or discharge coming out from this area. Positive bowel sounds. Extremities: There is 1+ lower extremity edema. No clubbing. No cyanosis. Neurological Examination: This patient is on mechanical ventilation. She is able to open her eyes spontaneously and she has been following commands on and off. Back: With multiple ulcers, mostly the sacral area and gluteal area, and there are covered at this moment. Laboratory: WBC 13.1, hemoglobin 10.5, hematocrit 31.8, platelets 72,000. Sodium 135, potassium 3.8, chloride 105, bicarbonate 14, BUN 59, creatinine 1.7, glucose 116, calcium 8.1, albumin 1.9. ASSESSMENT AND PLAN: 1. Metabolic encephalopathy. It looks like this is getting better. Multifactorial. We will continue with the same management. 2. Acute hypoxemic respiratory failure secondary to pneumonia complicated by underlying malignancy and septic shock. Continue with broad spectrum antibiotics with linezolid and Merrem. This patient is allergic to penicillins. She seems to be improving but she still has a poor prognosis overall. 3. Septic shock, likely secondary to pneumonia. She is still on pressors but we have been decreasing the rate of this medication. Hopefully, we are going to go stop the pressors at any time soon. 4. Pancreatic cancer with possible metastasis. This patient has been placed Do Not Resuscitate. Initially, she was a full code. We will continue with the same management. We will continue discussing the goals of care with the family. 5. Extensive deep venous thrombosis. Lower extremity ultrasound showed extensive superficial and deep venous thrombosis noted. She has been placed on a heparin drip. For now, we will continue with the same management. Her platelet count is a little bit low though. At this point, I will get hematology/oncology department to evaluate this patient. 6. Acute kidney injury. BUN and creatinine are better compared with admission. Today, the creatinine is 1.7. Three months ago, her creatinine was 0.7 so this is acute. We will continue with the same management. Urine output is still low. We will continue providing intravenous fluids and keeping the blood pressure stable. 7. Transaminitis, likely secondary to shock liver. It is about the same compared with yesterday. 8. Coagulopathy. PT/INR a little bit elevated and she is also thrombocytopenic. I have requested an evaluation by hematology department. She has also a lower extremity deep venous thrombosis she has been placed on a heparin drip. 9. Hypernatremia, resolved. 10. Hypokalemia, resolved. 11. Hyperglycemia. Hemoglobin A1c 6.8. Continue with the same management. 12. Severe protein calorie malnutrition with failure to thrive. We already started this patient on tube feedings. We started with a really low dose, which is going to be increased today. Let us see how she does with this. 13. Deep vein thrombosis prophylaxis. Continue with heparin. 14. Decubitus ulcers. Continue with the same management. 15. Thrombocytopenia. Like I mentioned before, we will monitor this closely. 16. Overall, this patient has a poor prognosis. She has a history of a gastrointestinal bleed which was apparently a couple weeks ago. We have been avoiding blood thinners but given her current condition with deep venous thromboses, we have placed this patient on a heparin drip. Hemoglobin has been stable and she is still remarkably sick. INTENSIVE CARE UNIT TIME: 40 minutes. cc: Daniel Valentino MD
[2018-08-18] MEDS: TIMOPTIC 0.5% OPH SOLUTION BOTH EYES SCH (09:18)
[2018-08-18 10:12] LABS: ALLEN TEST YES; BE -8.4 mmoll (-3.0-3.0); BLOOD TYPE ARTERIAL; HCO3-(ACT) 18.4 mmoll (20.0-26.0); METHB 1.1 % (0.0-1.5); O2(CT) 15.6 mL/dL (15.0-23.0); O2HB 96.8 % (95.0-99.0); PCO2(98.6) 23 mmHg (35-45); PO2(98.6) 117 mmHg (60-100); SAMPLE BLOOD; SAO2 99.5 % (95.0-100.0); THB 11.3 g/dL (11.5-17.4); pH(98.6) 7.41 (7.35-7.45)
[2018-08-18 10:13] LABS: MODALITY VENTILATOR
[2018-08-18] MEDS: MYCOSTATIN SUSP PO SCH ×3 (12:37→22:13)
[2018-08-18] MEDS: HEPARIN 25,000 UNITS/D5W 25,000 UNIT/250 ML IV.SOLN IV SCH (16:15)
[2018-08-19] MEDS: ZYVOX 600 MG/D5W 600 MG/300 ML IVPB IV SCH ×2 (02:00→13:35)
[2018-08-19] MEDS: MERREM 500 MG in NS 50 ML IV SCH ×4 (03:00→18:20)
[2018-08-19] MEDS: HUMULIN R SUBQ SCH ×6 (04:00→19:38)
[2018-08-19 04:50] LABS: ALLEN TEST YES; BE -10.4 mmoll (-3.0-3.0); BLOOD TYPE ARTERIAL; HCO3-(ACT) 16.8 mmoll (20.0-26.0); METHB 0.9 % (0.0-1.5); O2(CT) 19.7 mL/dL (15.0-23.0); PCO2(98.6) 25 mmHg (35-45); PO2(98.6) 129 mmHg (60-100); SAMPLE BLOOD; SAO2 99.4 % (95.0-100.0); THB 14.3 g/dL (11.5-17.4); pH(98.6) 7.34 (7.35-7.45)
[2018-08-19 04:52] LABS: MODALITY VENTILATOR
[2018-08-19 05:19] LABS: HEMATOCRIT 32.5 % (37.0-47.0); HEMOGLOBIN 10.9 g/dL (12.0-16.0); MCH 26.5 PG (27-31); MCHC 33.5 g/dL (33-37); MCV 78.9 FL (81-99); PLT 97 X1000 (130-400); RBC 4.12 XMIL (4.2-5.4); WBC 7.16 X1000 (4.8-10.8)
[2018-08-19 05:31] LABS: ALB/GLOB RATIO 0.4; ALBUMIN 1.9 g/dL (3.5-5.0); CREATININE 1.7 mg/dL (0.5-0.9); POTASSIUM 3.4 mmol/L (3.5-5.1); TOTAL BILIRUBIN 0.67 mg/dL (0.20-1.00); TOTAL PROTEIN 6.3 g/dL (6.3-8.3)
[2018-08-19 05:55] LABS: D-DIMER 3.93 ug/mLFEU (0.0-0.52)
--- NOTE | 2018-08-19 06:17 | Diag Imaging Result Doc PS360 ---
EXAM: CHEST-PORTABLE HISTORY: respiratory failure TECHNIQUE: Portable chest single view COMPARISON: 08/18/2018 FINDINGS: No change in the right-sided PICC line or the nasogastric tube. There are infiltrates in the lower lungs. No cardiomegaly. IMPRESSION: Mixed areas of improvement and worsening in the lung bases. Electronically signed by Kevin Puga 08/19/2018 6:15 AM
[2018-08-19] MEDS: PROTONIX IV SCH ×2 (06:36→17:41)
[2018-08-19] MEDS: NS 1,000 ML IV SCH (07:44)
[2018-08-19] MEDS ORDERED: POTASSIUM CHLORIDE 20% LIQUID PO ONE (08:06)
[2018-08-19] MEDS: MYCOSTATIN SUSP PO SCH ×4 (08:39→21:37)
[2018-08-19] MEDS: CLINIMIX E 4.25%-5% SOLUTION 1,000 ML IV SCH (08:39)
[2018-08-19] MEDS: TEARISOL OPH SOLUTION BOTH EYES PRN (08:48)
[2018-08-19] MEDS: TIMOPTIC 0.5% OPH SOLUTION BOTH EYES SCH (08:49)
--- NOTE | 2018-08-19 09:24 | PROGRESS NOTE ---
DATE: 08/19/2018 SUBJECTIVE: This patient is still on mechanical ventilation. Yesterday, I talked to the daughter, and she has decided to stop the DNR level 1 and put her back on full code. It looks like she is not tolerating the feeding tube, so I will stop it and put her on Clinimix. There is a high chance that this patient is going to aspirate or has been aspirating a little bit. She is still on pressors. OBJECTIVE: Vital Signs: Temperature 100.2, respiratory rate 29, blood pressure 107/73, oxygen saturation 100% on mechanical ventilation. HEENT: Head normocephalic. No trauma. PERRLA. Neck: Supple. No JVD. No masses. Central trachea. Chest: Coarse breath sounds bilaterally with some rhonchi at the bases. Decreased breath sounds at the bases as well. Abdomen: Soft, nondistended. She has a mass at the level of the periumbilical area. I do believe it is inside the abdominal wall on the right side and measuring around 4 x 1.5 cm. No secretion or discharge coming from that area. Positive bowel sounds. Extremities: 1+ lower extremity edema. No clubbing. No cyanosis. Neurological: This patient is on mechanical ventilation. She is able to open her eyes spontaneously, and it looks like she is following commands on and off. Back: She does have multiple ulcers mostly in the sacral area and gluteal area. LABORATORY: WBC 7.1, hemoglobin 10.9, hematocrit 32.5, platelets 97,000. Sodium 136, potassium 3.4, chloride 105, bicarbonate 14, BUN 61, creatinine 1.7, glucose 159, calcium 9, albumin 1.9. ASSESSMENT AND PLAN: 1. Metabolic encephalopathy. Probably, this is a little bit better, multifactorial. Continue with the same management. 2. Acute hypoxemic respiratory failure secondary to pneumonia complicated, but underlying malignancy and septic shock. Continue with broad-spectrum antibiotics. The patient is allergic to penicillin. White blood cells is normal today. 3. Septic shock, likely secondary to pneumonia. She is still on pressors. Continue with antibiotics. 4. Pancreatic cancer with possible metastasis. This patient was placed do not resuscitate level 1 initially. But now, is full code again, as suggested by her daughter. 5. Extensive deep venous thrombosis. Continue with heparin drip. Hematology/ Oncology Department following. 6. Acute kidney injury. Continue with the same treatment; better compared with admission. 7. Transaminitis, likely secondary to shock liver. 8. Coagulopathy. Aware. She is still thrombocytopenic. Fibrinogen is elevated , pending Hematology/Oncology Department recommendations. 9. Hypernatremia, resolved. 10. Hypokalemia. Will replace. 11. Hyperglycemia. Hemoglobin A1c is 6.8. Continue with the same management. 12. Severe protein calorie malnutrition with failure to thrive. I started tube feedings, but she is not tolerating that. Probably, she has been aspirating a little bit. I will stop that, and I will start this patient on Clinimix. 13. Deep vein thrombosis prophylaxis. Continue with heparin. 14. Decubitus ulcers. Continue with the same management. Wound care on board. 15. Thrombocytopenia. Will monitor closely, has been stable. Overall, this patient's prognosis is extremely poor, and that has been discussed with the daughter, but she wants to continue with full code on this patient. CRITICAL CARE TIME: 35 minutes. cc: Daniel Valentino MD MTDD
[2018-08-19] MEDS: ALBUMIN 25% IV SCH ×3 (10:24→21:37)
[2018-08-19] MEDS: SODIUM BICARBONATE 8.4% IV PUSH SCH ×3 (10:24→21:37)
--- NOTE | 2018-08-19 11:17 | PULMONOLOGY PROGRESS NOTE ---
DATE: 08/19/2018 SUBJECTIVE: The patient's eyes are open. She will squeeze hands. She remains on mechanical ventilation. She is very weak. She remains on vasopressors. OBJECTIVE: Vital Signs: Current temperature 100.2 degrees, blood pressure 116/ 73, heart rate 121, respiratory rate 29, oxygen saturation 100%. HEENT: Pupils are equal and reactive. Oropharynx appears dry. Neck: Supple. Chest: Reveals coarse rhonchi bilaterally. Cardiac exam: S1, S2. Abdomen: Soft with mild fullness. Extremities: Trace to 1 + edema. LABORATORY DATA: White blood count 7.16, hemoglobin 10.9, platelet count 97, 000. Sodium 136, potassium 3.4, chloride 105, bicarbonate 14, BUN 61, creatinine 1.7, albumin 1.9. Arterial blood gas reveals pH 7.34, pCO2 25, PO2 129. DIAGNOSTIC STUDIES: Chest x-ray a reveals fluctuating infiltrates in the lung bases. IMPRESSION: A 73-year-old with metastatic pancreatic cancer. The patient was at the [facility] and was too weak for treatment. She was discharged back home hopefully to return for possible palliative treatment. The patient is now on mechanical ventilation. She has hypoxemic respiratory failure, Enterobacter cloacae species pneumonia, ongoing shock, acute renal failure, bilateral deep vein thrombosis, and severe debilitation with severe protein-calorie malnutrition. The patient's prognosis is extremely poor. When I left on , her resuscitation status was to allow her to have a natural . Her daughter has changed her resuscitation status back to Full. She wants to continue to pursue aggressive care. When Ms. Hatch's case is discussed, her daughter becomes anxious and angry that we are not being positive. She reports she anticipates Ms. Hatch to receive treatment and has hope that she will survive despite all discussions. Ms. Hatch's daughter indicates that she has had some medical problems in the past and believes that Ms. Hatch can survive this hospital stay. We have explained that aggressive care may make her suffer more and she reports that these are her wishes. RECOMMENDATIONS: 1. Continue current antibiotics. 2. Continue Clinimix for nutrition. She is not tolerating tube feeds. 3. Continue anticoagulation. 4. Ongoing end-of-life discussions. She is not likely to survive this hospital stay. Time spent in critical care management: 30+ minutes cc: Jeremiah Garcia MD MTDD
[2018-08-19] MEDS: HEPARIN 25,000 UNITS/D5W 25,000 UNIT/250 ML IV.SOLN IV SCH (15:50)
--- NOTE | 2018-08-19 16:23 | HEMO/ONC CONSULTATION ---
DATE: 08/19/2018 REASON FOR CONSULTATION: Consultation requested by the hospitalist service. Consultation is for his DVT, thrombocytopenia and coagulopathy. HISTORY OF PRESENT ILLNESS: Ms. Lakshmi Hatch is a 73-year-old, female who initially presented to the emergency department at [facility] on with altered mental status via EMS. The patient is currently intubated. By the time the primary team and other consultants met with the patient she was already intubated. It also seems that she was rather altered when she came in, was unable to give any information. All information comes from either the patient's chart or the daughter who is at bedside. The patient has newly diagnosed metastatic pancreatic cancer. She has actually been evaluated by [facility] in [place], [place]. We do have those records. She has yet to receive any treatment due to poor performance status. The patient is now in the ICU with what is believed to be shock secondary to pneumonia. The patient is intubated and is unable to speak. The patient's daughter is at bedside, but she is a poor historian. PAST MEDICAL HISTORY: From reading the chart and talking with the patient's daughter, the patient does have a history of metastatic pancreatic cancer but has yet to receive any treatment. Does appear that she has liver mets with peritoneal carcinomatosis. Patient also has a history of PICC line associated DVT, but was off of all anticoagulation upon presentation. The patient had diverticular bleeding a couple weeks ago. PAST SURGICAL HISTORY: 1. Hysterectomy. 2. The surgery on her middle finger. 3. Exploratory laparoscopic procedure due to previous small-bowel obstruction related to her metastatic pancreatic cancer. SOCIAL HISTORY: The patient evidently lives with her daughter. She was previously a heavy smoker and smoked about 3 packs of cigarettes per day for 20 years. 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 REVIEW OF SYSTEMS: This cannot really be completed as the patient is unable to communicate. PHYSICAL EXAMINATION: Vital Signs: Temperature 99.5 degrees, heart rate 120, blood pressure 111/75, O2 saturation is 100% on mechanical vent. General: This is a thin female lying in hospital bed, intubated. HEENT: Head normocephalic, atraumatic. Eye open spontaneously. Ears, nose, throat, neck and mouth: The patient is intubated. Cardiovascular: Tachycardia noted. S1, S2 heard. Respiratory: Mechanical vent sounds noted. Gastrointestinal: Abdomen is distended with ascites. Hypoactive bowel sounds noted. Musculoskeletal: No obvious bony abnormalities noted. Extremities: No edema in bilateral lower extremities. Neurologic: Patient is intubated. She does open her eyes and does seem to respond to voice. LABS AND STUDIES: White blood cells 7.16, hemoglobin 10.9, hematocrit 32.5, platelet count 97,000. Fibrinogen 572, sodium 136, potassium 3.4, chloride 105, CO2 14, BUN 61 , creatinine 1.7, glucose 159. Bilateral lower extremity Doppler done on 08/14/2018 show extensive bilateral deep venous and superficial vein thrombosis. Chest x-ray done on 08/19/2018 shows mixed areas of improvement and worsening in the lung bases. ASSESSMENT AND PLAN: 1. Thrombocytopenia. Concerns that she may have HIT. HIT antibodies have been sent off but are currently pending. The patient's platelet count has improved overnight to 97 ,000. She could also have drug induced thrombocytopenia from something other than heparin. Follow up on antibodies when they return. Would continue with heparin at this time given her bilateral lower extremity DVTs. Monitor closely. Previously checked a DIC panel and it does not the patient has DIC. 2. Coagulopathy. Seems to have improved some with vitamin K dosing. Likely related to the patient's septic shock and shock liver with transaminitis. Continue to monitor. 3. Bilateral extremity DVTs with prior history of PICC associated DVT. Patient was previously on Lovenox which she developed with diverticular bleed. I would recommend continuing heparin as per above. Monitor closely for bleeding. 4. Metastatic pancreatic cancer. We can review the records that have been provided. Patient would not be a candidate for any sort of treatment at this time. If she were to survive this hospitalization, she can return to [facility] for further treatment as they already know her case and she has already established there. 5. Disposition. Patient is currently full code. It seems from reviewing the chart that the primary team and other consultants have tried to discuss making the patient DNR, but ultimately those discussions have not been successful. The patient's overall prognosis seems poor. Would like to thank you for consulting us on Ms. Hatch. We will continue to follow along and adjust our treatment plan per her hospital course. Dictated by QUINN Meeks for Dorothea Capone MD cc: Dorothea Capone MD I have seen and examined the patient and the above note reflects my history, physical, assessment and plan. Dorothea Capone MD [facility]
--- NOTE | 2018-08-19 17:26 | PROVIDER DOCUMENTATION ---
This chart was entered by Juanis Toledo Scribe, acting as scribe for Mg Christina MD. HPI-Neurological Disorder - General Chief Complaint: Altered Mental Status Stated Complaint: AMS,SOB, only responive to painful stimuli Time Seen by Provider: 08/13/18 22:03 Source: patient, EMS Allergies/Adverse Reactions: Patient Allergies Allergy/AdvReac Type Severity Reaction Status Date / Time Penicillins Allergy Mild redness Verified 08/13/18 23:39 Home Medications: Home Medication List Medication Instructions Recorded Confirmed Last Taken Type Albuterol Sulfate [Proair Hfa] 90 mcg IH Q6HR 08/14/18 08/14/18 08/12/18 09:00 History 1 Cholecalciferol (Vitamin D3) 5,000 unit PO DAILY 08/14/18 08/14/18 08/12/18 09: 00 History [Vitamin D3] 1 Glipizide 10 mg PO BID 08/14/18 08/14/18 08/12/18 20:00 History 1 Pnv No.121/Iron/Folic Acid 1 each PO DAILY 08/14/18 08/14/18 08/12/18 09:00 History [ Multivitamin Tablet] 1 Potassium Chloride 20 meq PO DAILY 08/14/18 08/14/18 08/12/18 09:00 History 1 Spironolactone 50 mg PO DAILY 08/14/18 08/14/18 08/12/18 09:00 History 1 Sucralfate [Carafate Liquid] 1 gm PO Q6HR 08/14/18 08/14/18 08/13/18 09:00 History 1 Timolol 0.5% Oph Solution 1 drop BOTH EYES DAILY 08/14/18 08/14/18 08/12/18 09: 00 History [Timoptic 0.5% Oph Solution] 1 Vit C/Vit E/Lutein/Min/[place]-3 1 each PO DAILY 08/14/18 08/14/18 08/12/18 09:00 History [Ocuvite Softgel] 1 - History of Present Illness-Neuro Nature of Presenting Problem: 73yof with hx of pancreatic cancer and diabetes presents to the ED unresponsive since this evening. EMS and the patient's daughter act as historians. The patient's daughter reports that the patient was last seen normal last night. She reports that she wasn't acting normally and did not want to drink or eat since this morning. She reports that the patient only took approximately half of her pain mediations and none of her regular medications today. She reports that the patient has not started her cancer treatment yet. She reports that she had a cough and crackles in her lungs that started today. She reports that she called the patient's cancer care and was told to call 911 and take the patient to the ED. She reports that she called EMS due to the patient having AMS and became unresponsive. The patient's daughter reports that the patient is a full code. She reports that the patient resides with her. Review of Systems - Adult - REVIEW OF SYSTEMS - ADULT ROS:: limited per condition (pt is unresponsive) Constitutional: denies: chills, fever Past History - Adult - PAST MEDICAL HISTORY-ADULT Review of Records: reports: Old Records Reviewed, Nursing Assessment Review, Medications Reviewed Major Childhood Illnesses: reports: denies history Cardiovascular: reports: denies history Respiratory: reports: denies history Gastrointestinal: reports: denies history Obstetrical/Gynecological: reports: denies history Genitourinary: reports: denies history Musculoskeletal: reports: denies history Neurological: reports: denies history Endocrine/Immune: reports: denies history Other Conditions: reports: denies history - PRIOR SURGERIES/PROCEDURES Surgical/Procedure History: reports: hysterectomy - IMMUNIZATION STATUS Childhood Immunizations: See Nurse Assessment Flu Vaccine: See Nurse Assessment - FAMILY HISTORY Family History: reviewed, not pertinent - SOCIAL HISTORY Smoking: other (former) Substance Use: denies Living Situation: family Physical Exam- Neurological - Physical Exam-Neuro Initial Vital Signs Reviewed: Yes General Appearance: other (pt is unresponsive) HENMT: moist mucous membranes Head Injury: no evidence of injury. negative: active bleeding, Haskins's Sign Respiratory: decreased breath sounds, crackles (bilaterally). negative: lungs clear, normal breath sounds Cardiovascular: normal peripheral pulses, no edema. negative: regular rate, rhythm Abdominal Exam: normal bowel sounds, soft Peripheral Pulses: femoral (R): 2+, femoral (L): 2+, dorsalis-pedis (R): 2+, dorsalis-pedis (L): 2+ Extremity: other (bilateral plantar feet: cyanosis, cold to touch) direct care professional Exam: other (pt unable to cooperate with neurological exam) Motor/Sensory: other (pt unable to cooperate with neurological exam) Neurologic: other (pt unable to cooperate with neurological exam) Integumentary: normal color, cyanosis (bilateral plantar feet) Psych/Mental Status: other (pt is unresponsive) - Glascow Coma Scale Best Eye Response: (1) no response Best Verbal Response: (1) no verbal response Best Motor Response: (4) withdraws to pain Total Glascow Score: 6 Progress - PLAN OF CARE/RESULTS Progress/Plan/Lab Results: Intubation prep began at 22:20 Ketamine 100mg at 22:23 Intubation at 22:24 Versed 2mg started at 22:27 See Nurses note for further management details Result Diagrams: 08/19/18 04:18 08/19/18 04:18 - EKG 1 Time of EKG reading by physician:: 22:10 EKG Read and Signed by:: Mg Christina EKG Interpretation (*Must complete 3 of following elements*): Abnormal Rate: 105 Rhythm: Undetermined rhythm QRS: other (low voltage QRS, prolonged QT) ST Wave: elevated (consider early repolarization, pericarditis or injury), non- specific ST changes (consider anterolateral ischemia) Procedures - INTUBATION Time of Intubation: 22:24 Airway Evaluation: Copious Secretions Mallampati Class: 3 Intubation Method: orotracheal Equipment: ETT Tube Size (cm): 6.0 Pretreated with 100% Oxygen?: Yes Breath Sounds after Intubation: equal ETT Primary Tube Confirmation: Capnometry CO2 Change, Direct Visualization, Chest Rise and Fall, Tube placement verified on XRAY Intubation Complications: no complications Vent Settings: See Respiratory Therapy Notes Departure - Departure Date of Disposition Decision: 08/13/17 Time of Disposition Decision: 12:45 DIAGNOSIS: Altered mental status Disposition: ADMITTED INPATIENT 09 Certified Medical Emergency: Emergent Condition: Stable - Critical Care Note This patient required my direct & personal management of CC.: Yes Total Time (mins): 95 Critical Care Statement: This patient required my direct personal management to treat or rule out processes, the absence of which, could potentiallly result in sudden, clinically significant life or limb threatening deterioration. Attestation - Physician/ ALVARADO Attestation Patient care was provided by Advanced Practice Provider:: No The physician spent face to face time with patient:: Yes Advanced Practice Provider documentation review:: Supervising physician onsite and consulted in the evaluation and care of this patient. The physician did have a face to face encounter with the patient. This chart was documented by the indicated scribe, (Juanis Toledo Scribe) and accurately reflects the services I performed and decisions made by me, Mg Christina MD, as attested by the provider's signature.
[2018-08-19] MEDS: SODIUM CHLORIDE 0.9% INJ SCH (17:40)
[2018-08-19] MEDS: MORPHINE IV PRN (19:14)
--- NOTE | 2018-08-19 20:11 | GENERAL SURGERY CONSULTATION ---
DATE: 08/19/2018 HISTORY OF PRESENT ILLNESS: A 73-year-old female with recently diagnosed metastatic adenocarcinoma. Apparently this is felt to be pancreatic biliary in etiology but she has also had some question of a sigmoid lesion as well. She was diagnosed with all this early in July, sought her care at [facility], was discharged there after having developing a DVT complications but was initially palliatively operated on at [place] prior to this where she found to have metastatic carcinoma and some form of palliative bypass was performed. She then comes here after a fall, altered mental status, worsening respiratory symptoms, intubated. Her daughter is here currently. She was initially do not resuscitate but now has been made full code and it is unclear what prompted this change. She on arrival had a sacral and ischial decubitus wound with getting a necrotic eschar overlying this but today the nurses noted feculent drainage from her vagina. History somewhat limited. The daughter has had multiple brain surgeries and has difficulty conveying her history and I do not have any of the outside records. REVIEW OF SYSTEMS: Ten point negative what is mentioned HPI. MEDICAL HISTORY: Metastatic carcinoma, presumably pancreatic, possible colon, diabetes, DVT, recent lower GI bleed. SURGICAL HISTORY: Hysterectomy, exploratory laparotomy with bypass apparently done in [place]. 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 FAMILY HISTORY: Reviewed, noncontributory. PHYSICAL EXAM: Her eyes are open. She is somewhat responsive. She is endotracheally intubated. She is profoundly cachectic.HEENT: I do not see any scleral icterus. No cervical mass . Cardiovascular: Normal rate, regular rhythm. Pulmonary: She is endotracheally intubated with equal chest rise. Abdomen: Is soft, somewhat distended. Integument: Warm and dry. No jaundice. Musculoskeletal: Profound muscle atrophy and cachexia. Neurologic : Generalized weakness and sedation. Rectal: Shows a distal rectal mass, very large. There is no gross blood. On rectal examination though there is liquid stool emanating from both the vagina and rectum. Cannot palpate a defect. Inguinal: No adenopathy. Musculoskeletal: There is skin breakdown bilateral ischium and gluteal skin and there is a necrotic eschar with no purulence overlying the sacrum. LABS: White count is 7, hematocrit 32, creatinine is 1.7, glucose 159 to 158. BNP is 12,409. 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 It is unclear the reason for this. She does have what feels like a palpable mass. We do not have any outside records. At this point it is a little difficult to understand what the goals of the family are. I do not think she is in any way a surgical candidate given her profound cachexia and really end stages of her multiple medical issues and it is unclear to me the primary for her carcinoma. This could be pancreatic, could be colon given the examination on the rectum and she has had a recent what appears to be prolapsing mass at the [facility] in [place]. Will follow along. I would continue local wound care. I have talked to Irina, our wound nurse about this. From a rectovaginal fistula standpoint I would not pursue any aggressive measures. cc: Pedro Jiang MD MTDD
[2018-08-20] MEDS: HUMULIN R SUBQ SCH ×6 (01:28→20:18)
[2018-08-20] MEDS: ZYVOX 600 MG/D5W 600 MG/300 ML IVPB IV SCH ×2 (01:34→13:20)
[2018-08-20] MEDS: LEVOPHED 8 MG in D5 1/2 NS 250 ML IV SCH (01:59)
[2018-08-20] MEDS: MORPHINE IV PRN ×4 (02:36→22:45)
[2018-08-20] MEDS: MERREM 500 MG in NS 50 ML IV SCH ×3 (03:02→18:00)
[2018-08-20 05:47] LABS: ALLEN TEST YES; BE -5.3 mmoll (-3.0-3.0); BLOOD TYPE ARTERIAL; HCO3-(ACT) 20.8 mmoll (20.0-26.0); METHB 1.4 % (0.0-1.5); O2HB 96.2 % (95.0-99.0); PCO2(98.6) 23 mmHg (35-45); PO2(98.6) 102 mmHg (60-100); SAMPLE BLOOD; SAO2 99.3 % (95.0-100.0); THB 11.7 g/dL (11.5-17.4); pH(98.6) 7.47 (7.35-7.45)
[2018-08-20 05:49] LABS: MODALITY VENTILATOR
[2018-08-20 06:00] LABS: ALB/GLOB RATIO 0.8; ALBUMIN 2.7 g/dL (3.5-5.0); CALCIUM 9.1 mg/dL (8.8-10.2); CREATININE 1.3 mg/dL (0.5-0.9); POTASSIUM 3.1 mmol/L (3.5-5.1); TOTAL BILIRUBIN 1.39 mg/dL (0.20-1.00); TOTAL PROTEIN 5.9 g/dL (6.3-8.3)
[2018-08-20] MEDS: PROTONIX IV SCH ×2 (06:01→18:00)
[2018-08-20] MEDS: CLINIMIX E 4.25%-5% SOLUTION 1,000 ML IV SCH (06:38)
[2018-08-20] MEDS ORDERED: POTASSIUM CHLORIDE 20% LIQUID PO ONE (07:24)
--- NOTE | 2018-08-20 07:26 | Diag Imaging Result Doc PS360 ---
EXAM: CHEST-PORTABLE 08/20/2018 HISTORY: respiratory failure TECHNIQUE: AP portable at 0526 COMMENT: There is an endotracheal tube with its tip in the thoracic inlet, an NG tube with its tip below the diaphragm and a left PICC line with its tip in the right atrium. There is mild atelectasis in the right base and denser opacification in the left lower lobe. Compared to 08/19/2018 there has been no appreciable change. The opacities present previously in the right lower lobe have improved since 08/18/2018. IMPRESSION: Bibasilar atelectasis and/or pneumonia. Electronically signed by Eugene Donaldson 08/20/2018 7:23 AM
[2018-08-20] MEDS: TIMOPTIC 0.5% OPH SOLUTION BOTH EYES SCH (08:05)
[2018-08-20] MEDS: MYCOSTATIN SUSP PO SCH ×4 (08:05→20:19)
--- NOTE | 2018-08-20 08:34 | PROGRESS NOTE ---
DATE: 08/20/2018 SUBJECTIVE: This patient is still on mechanical ventilation. She is able to open her eyes. She has been following commands on and off. She used to be DNR level, but now the daughter put her back on full code. She is not tolerating the feeding tube, so it has been stopped, and we put her on Clinimix. On the other hand, yesterday, we started noticing that this patient is passing some stools through her vagina. Surgery Department evaluated this patient, and they do not recommend any aggressive intervention at this moment given her multiple comorbidities. She is not really a surgical candidate for any procedure. For now, we will continue with the same management. Extremely poor prognosis. I will replace the potassium. OBJECTIVE: Vital Signs: Temperature 98.6, pulse 74, respiratory rate 22, blood pressure 91/61, oxygen saturation 100% on mechanical ventilation. HEENT: Head normocephalic. No trauma. PERRLA. Neck: Supple. No JVD. No masses. Central trachea. Chest: Coarse breath sounds bilaterally with rhonchi at the bases. Decreased breath sounds at the bases as well. Abdomen: Soft, somewhat distended. She has a palpable mass on the right side of the abdomen that I believe is inside the abdominal wall around 4 x 1.5 cm. She has no secretion or discharge coming from that area. Positive bowel sounds. Extremities: 1+ edema. No clubbing. No cyanosis. Genitourinary: Some stool is coming out from her vagina. Neurological: This patient is on mechanical ventilation. She is able to open her eyes spontaneously and it looks like she is following commands a little bit. Back: She does have multiple ulcers mostly in the sacral area and gluteal area. LABORATORY: Sodium 137, potassium 3.1, chloride 104, bicarbonate 17, BUN 59, creatinine 1.3, glucose 155, calcium 9.1. Albumin 2.7. ASSESSMENT AND PLAN: 1. Metabolic encephalopathy. Probably, this is a little bit better, multifactorial. Continue with same management. She is able to open her eyes spontaneously, and she has been following commands a little bit on and off. 2. Acute hypoxemic respiratory failure secondary to pneumonia complicated with underlying malignancy and septic shock. Continue with broad spectrum antibiotics. She is allergic to penicillin. 3. Septic shock secondary to pneumonia. She is still on pressors. 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 4. Metastatic pancreatic cancer. Hematology/Oncology on board. 5. Extensive deep venous thrombosis. Continue with heparin drip. Hematology/Oncology following this patient. Continue same management for now. 6. Acute kidney injury. Continue with the same management. This is getting a little bit better. 7. Transaminitis likely secondary to shock liver. 8. Coagulopathy, aware. She is still thrombocytopenic. We will monitor for now. 9. Hypernatremia. Resolved. 10. Hypokalemia. I will replace the potassium. 11. Hyperglycemia. Hemoglobin A1c is 6.8. Continue with the same management. 12. Severe protein calorie malnutrition with failure to thrive and cachexia. I started this patient on tube feeds, but she is not tolerating that, and probably, she has been aspirating a little bit. So I stopped already the feeding, and I started this patient on Clinimix. 13. Deep vein thrombosis prophylaxis. Continue with heparin. 14. Decubitus ulcers. Continue with same management. Wound care on board. 15. Thrombocytopenia. We will monitor. 16. Extremely poor prognosis. CRITICAL CARE TIME: 40 minutes. cc: Daniel Valentino MD
[2018-08-20 09:40] LABS: HEMATOCRIT 29.5 % (37.0-47.0); HEMOGLOBIN 9.6 g/dL (12.0-16.0); MCH 26.4 PG (27-31); MCHC 32.5 g/dL (33-37); PLT 88 X1000 (130-400); RBC 3.64 XMIL (4.2-5.4); RDW 18.4 % (11.5-14.5); WBC 7.06 X1000 (4.8-10.8)
[2018-08-20] MEDS: HEPARIN 25,000 UNITS/D5W 25,000 UNIT/250 ML IV.SOLN IV SCH (16:14)
[2018-08-21] MEDS: HUMULIN R SUBQ SCH ×6 (01:26→20:38)
[2018-08-21] MEDS: ZYVOX 600 MG/D5W 600 MG/300 ML IVPB IV SCH ×2 (02:21→13:48)
[2018-08-21] MEDS: MERREM 500 MG in NS 50 ML IV SCH ×3 (02:28→18:55)
--- NOTE | 2018-08-21 03:38 | GENERAL SURGERY PROGRESS NOTE ---
DATE: 08/20/2018 SUBJECTIVE: She remains on vasopressors, but a weaning dose. She is still on the ventilator, 40% FiO2. She is alert, communicative. No fevers. No tachycardia. OBJECTIVE: Vital Signs: Blood pressures have been systolics in the 90s at the high end, as low as 68 systolic when off of vasopressors. Oxygen saturations in the mid to high 90s. General: She seems alert. She responds to commands. She is endotracheally intubated. Cardiovascular: Shows normal rate and regular rhythm. LABORATORY DATA: I reviewed her labs today, white count is 7, hematocrit is 29, creatinine is 1.3. ABG shows appropriate gas exchange. She is hyperventilating slightly. 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 It is unclear the exact etiology of this, but it does seem to be neoplastic in nature. She is profoundly ill and will not tolerate any surgical intervention including debridement of her wounds. These are not a source of sepsis. I will continue local wound care, medical management, and end of life discussions with this patient as she does have a terminal illness. We will follow along but no plans for surgical intervention cc: Pedro Jiang MD
--- NOTE | 2018-08-21 04:26 | PULMONOLOGY PROGRESS NOTE ---
DATE: 08/20/2018 SUBJECTIVE: Patient without specific complaints. PHYSICAL EXAMINATION: Vital Signs: 79 Saturation 93%. HEENT: Pupils are equal and reactive. Oropharynx is clear. Neck: Supple. Chest: Reveals coarse breath sounds bilaterally. Cardiac: S1-S2. Abdomen: Soft, with mild distention. Extremities: Reveal 1+ peripheral edema. LABORATORIES: Sodium 137, potassium 3.1, chloride 104, bicarbonate 27, BUN 59, creatinine 1.3. Arterial blood gas reveals a pH of 7.47, pCO2 of 23, PO2 of 102, with a lactate of 3.0. White blood count 7.06, hemoglobin 9.6, platelet count 88,000. IMPRESSION: A 73-year-old with metastatic pancreatic cancer, rectal mass, with rectovaginal fistula, severe protein calorie malnutrition, acute hypoxemic respiratory failure, acute renal failure, Enterobacter cloacae species pneumonia, bilateral deep vein thrombosis. The patient's status remains extremely poor. She is unlikely to survive long-term, and will never reach enough strength for treatment of her pancreatic cancer. Her daughter easily becomes agitated when end of life discussions are discussed, and she states that it is negative talk. Her daughter is unlikely to deal well with Ms. Hatch's passing, and will likely have a complicated bereavement. The patient currently is too weak to extubate from mechanical ventilation. RECOMMENDATIONS: 1. Continue current antibiotics. 2. Continue Clinimix for severe protein calorie malnutrition. 3. Continue anticoagulation for bilateral deep vein thrombosis. 4. Ongoing end of life discussions. cc: Jeremiah Garcia MD [facility]PITALVladislav
[2018-08-21 05:28] LABS: ALLEN TEST YES; BE -6.6 mmoll (-3.0-3.0); BLOOD TYPE ARTERIAL; HCO3-(ACT) 19.8 mmoll (20.0-26.0); METHB 0.8 % (0.0-1.5); O2(CT) 12.6 mL/dL (15.0-23.0); PCO2(98.6) 21 mmHg (35-45); PO2(98.6) 190 mmHg (60-100); SAMPLE BLOOD; SAO2 100.4 % (95.0-100.0); SRATE 14 BPM; THB 8.8 g/dL (11.5-17.4); TVOL 500 mL; pH(98.6) 7.48 (7.35-7.45)
[2018-08-21 05:29] LABS: MODALITY VENTILATOR
[2018-08-21] MEDS: CLINIMIX E 4.25%-5% SOLUTION 1,000 ML IV SCH (06:04)
[2018-08-21] MEDS: PROTONIX IV SCH ×2 (06:04→18:55)
[2018-08-21 06:41] LABS: HEMATOCRIT 26.9 % (37.0-47.0); HEMOGLOBIN 8.9 g/dL (12.0-16.0); MCH 26.3 PG (27-31); MCHC 33.1 g/dL (33-37); MCV 79.6 FL (81-99); PLT 76 X1000 (130-400); RBC 3.38 XMIL (4.2-5.4); RDW 18.2 % (11.5-14.5); WBC 5.51 X1000 (4.8-10.8)
[2018-08-21 07:02] LABS: ALB/GLOB RATIO 0.7; ALBUMIN 2.3 g/dL (3.5-5.0); CALCIUM 9.1 mg/dL (8.8-10.2); CREATININE 1.2 mg/dL (0.5-0.9); POTASSIUM 4.1 mmol/L (3.5-5.1); TOTAL BILIRUBIN 1.02 mg/dL (0.20-1.00); TOTAL PROTEIN 5.8 g/dL (6.3-8.3)
[2018-08-21] MEDS: MORPHINE IV PRN (07:42)
--- NOTE | 2018-08-21 07:45 | Diag Imaging Result Doc PS360 ---
EXAM: CHEST-PORTABLE INDICATION: respiratory failure TECHNIQUE: One view COMPARISON: 08/20/2018 FINDINGS: Support tubes and lines are in stable positions. Opacity at the left lower lung zone suggesting atelectasis and/or pneumonia appears improved slightly. The milder opacity at the right lung base is approximately stable. No new consolidation is identified. Cardiac silhouette is stable. IMPRESSION: Improvement of consolidation at the left lung base as described. Electronically signed by Markell Loving 08/21/2018 7:42 AM
[2018-08-21] MEDS: MYCOSTATIN SUSP PO SCH ×4 (08:16→21:55)
[2018-08-21] MEDS: TIMOPTIC 0.5% OPH SOLUTION BOTH EYES SCH (08:17)
--- NOTE | 2018-08-21 08:39 | PROGRESS NOTE ---
DATE: 08/21/2017 SUBJECTIVE: This patient is alert, and she is following commands. She is able to squeeze my hand. She is able to close her eyes when I ask her do that. No family members at the bedside. She used to be DNR but the daughter changed her DNR status to FULL CODE. Overall, her prognosis is extremely poor due to her current condition, comorbidities, possible rectal vaginal fistula. She is not a candidate for surgery, and age. OBJECTIVE: Vital Signs: Temperature 98.1, pulse 81, respiratory rate 29. Blood pressure 86/63, oxygen saturation 90 on mechanical ventilation. HEENT: Head normocephalic. No trauma. PERRLA. Neck supple. No JVD. No masses. Central trachea. Chest: Coarse breath sounds bilaterally with rhonchi at the bases. Decreased breath sounds at the bases as well. Abdomen is soft. Somewhat distended. She has a mass on the right side of the abdomen. I believe it is inside the abdominal wall measuring 4 x 1.5 cm. There is no redness or discharge coming from that area. Positive bowel sounds. Extremities: 1 to 2+ extremity edema. No clubbing. No cyanosis. Genitourinary: She is still having some stool coming out from her vagina. Neurologic: This patient is on mechanical ventilation. She is alert. She is following commands. She is extremely weak. Back: She does have multiple ulcers mostly in the sacral area and gluteal area. LABORATORY: WBC 5.5, hemoglobin 8.9, hematocrit 26.9, platelets 76,000. Sodium 134, potassium 4.1, chloride 103, bicarbonate 16. BUN 59, creatinine 1.2, glucose 191. Calcium 9.1. Albumin 2.3. ASSESSMENT AND PLAN: 1. Metabolic encephalopathy. She looks better. Continue with same management. 2. Acute hypoxemic respiratory failure secondary to pneumonia complicated with underlying malignancy and septic shock. Continue broad spectrum antibiotics. She is allergic to penicillin. Pulmonary department on board. 3. Septic shock secondary to pneumonia. She is still on pressors. Continue with antibiotics. Now she has some stools coming out from her vagina with possible rectal vaginal fistula and sacral ulcers. 4. Metastatic pancreatic cancer. Hematology and Oncology on board. 5. Extensive deep venous thrombosis. Continue with heparin drip. Hematology/Oncology following this patient. Continue with same management for now. 6. Acute kidney injury. Continue with the same treatment. She is getting a little bit better. 7. Transaminitis, likely secondary to shock liver. 8. Coagulopathy, aware. She is still thrombocytopenic but seems to be stable in that regard. 9. Hypernatremia, resolved. 10. Hypokalemia, resolved. 11. Hyperglycemia with a hemoglobin A1c of 6.8, continue with the same management. 12. Metastatic pancreatic cancer. Hematology/Oncology following. 13. Severe protein calorie malnutrition with failure to thrive and cachexia. Continue with the same treatment. She is getting Clinimix. 14. Deep vein thrombosis prophylaxis with heparin. 15. Decubitus ulcers. Continue with same management. Wound care on board. 16. Thrombocytopenia. We will monitor for now. 17. Overall, this patient has an extremely poor prognosis due to her current condition and comorbidities and age. The case has been discussed with the daughter multiple times, but she wants to continue treatment and FULL CODE. CRITICAL CARE TIME: 35 minutes. cc: Daniel Valentino MD
[2018-08-21] MEDS ORDERED: SODIUM BICARBONATE 8.4% IV PUSH ONE (09:09)
--- NOTE | 2018-08-21 09:28 | PULMONOLOGY PROGRESS NOTE ---
DATE: 08/21/2018 SUBJECTIVE: Patient is arousable to awake. Her vasopressors have been temporarily interrupted. OBJECTIVE: Vital signs: The patient has been afebrile for the last 24 hours. Blood pressure 95/64, heart rate 81, respiratory rate 20, oxygen saturation 100%. HEENT: Pupils are equal and reactive. Oropharynx is dry, but clear. Neck: Supple. Chest: Reveals decreased breath sounds left base. Cardiac: S1-S2. Abdomen: Soft, with decreased bowel sounds. Extremities: Reveal 1+ peripheral edema. LABORATORIES: White blood count 5.51, hemoglobin 8.9, platelet count 76,000. Sodium 134, potassium 4.1, chloride 103, bicarbonate 16, BUN 59, creatinine 1.2. Arterial blood gas, pH 7.48, pCO2 of 21, PO2 of 190. IMAGING: Chest x-ray reveals marginal improvement in the left base. IMPRESSION: A 73-year-old with metastatic pancreatic cancer, acute hypoxemic respiratory failure, Enterobacter cloacae species pneumonia, bilateral deep vein thrombosis, rectal mass with a rectovaginal fistula, severe protein calorie malnutrition, decubitus ulcer, acute renal injury with resolving septic shock. The patient's prognosis is extremely poor. Daughter continues to push for aggressive care despite multiple physicians explaining her poor prognosis. RECOMMENDATIONS: 1. Initiate spontaneous breathing trial. The patient will always be weak, but it is hoped that she can be extubated. 2. Continue broad-spectrum antibiotics. 3. Continue Clinimix. 4. Ongoing end-of-life discussions with Ms. Hatch's daughter. Time spent in critical care management: 30+ minutes cc: Jeremiah Garcia MD MTDVladislav
[2018-08-21 09:29] LABS: ALLEN TEST YES; BE -8.1 mmoll (-3.0-3.0); BLOOD TYPE ARTERIAL; HCO3-(ACT) 18.6 mmoll (20.0-26.0); METHB 0.8 % (0.0-1.5); O2(CT) 13.1 mL/dL (15.0-23.0); O2HB 97.8 % (95.0-99.0); PCO2(98.6) 30 mmHg (35-45); PO2(98.6) 190 mmHg (60-100); SAMPLE BLOOD; SAO2 99.9 % (95.0-100.0); THB 9.2 g/dL (11.5-17.4); pH(98.6) 7.35 (7.35-7.45)
[2018-08-21 09:30] LABS: MODALITY VENTILATOR
[2018-08-21] MEDS: HEPARIN 25,000 UNITS/D5W 25,000 UNIT/250 ML IV.SOLN IV SCH (15:47)
[2018-08-21] MEDS: ZOFRAN IV PRN (16:33)
[2018-08-22] MEDS: HUMULIN R SUBQ SCH ×6 (00:07→21:24)
[2018-08-22] MEDS: ZYVOX 600 MG/D5W 600 MG/300 ML IVPB IV SCH ×2 (02:10→15:27)
[2018-08-22] MEDS: MERREM 500 MG in NS 50 ML IV SCH ×3 (03:30→17:59)
[2018-08-22] MEDS: CLINIMIX E 4.25%-5% SOLUTION 1,000 ML IV SCH (03:31)
[2018-08-22 05:07] LABS: ALLEN TEST YES; BLOOD TYPE ARTERIAL; HCO3-(ACT) 20.3 mmoll (20.0-26.0); METHB 0.8 % (0.0-1.5); O2(CT) 12.5 mL/dL (15.0-23.0); O2HB 96.5 % (95.0-99.0); PCO2(98.6) 27 mmHg (35-45); PO2(98.6) 102 mmHg (60-100); SAMPLE BLOOD; THB 9.1 g/dL (11.5-17.4); pH(98.6) 7.42 (7.35-7.45)
[2018-08-22 05:08] LABS: HEMATOCRIT 25.7 % (37.0-47.0); HEMOGLOBIN 8.3 g/dL (12.0-16.0); MCHC 32.3 g/dL (33-37); MCV 80.6 FL (81-99); PLT 56 X1000 (130-400); RBC 3.19 XMIL (4.2-5.4); RDW 17.7 % (11.5-14.5); WBC 3.71 X1000 (4.8-10.8)
[2018-08-22 05:09] LABS: MODALITY CANNULA
[2018-08-22 05:42] LABS: ALB/GLOB RATIO 0.6; ALBUMIN 2.1 g/dL (3.5-5.0); CALCIUM 9.1 mg/dL (8.8-10.2); CREATININE 1.2 mg/dL (0.5-0.9); POTASSIUM 4.1 mmol/L (3.5-5.1); TOTAL BILIRUBIN 0.85 mg/dL (0.20-1.00); TOTAL PROTEIN 5.6 g/dL (6.3-8.3)
[2018-08-22] MEDS: SODIUM CHLORIDE 0.9% INJ SCH (05:42)
[2018-08-22] MEDS: PROTONIX IV SCH ×2 (05:42→17:57)
[2018-08-22] MEDS: ZOFRAN IV PRN (05:59)
--- NOTE | 2018-08-22 07:11 | Diag Imaging Result Doc PS360 ---
EXAM: CHEST-PORTABLE 08/22/2018 HISTORY: respiratory failure TECHNIQUE: AP portable at 0526 COMMENT: There are ill-defined opacities present in both lung bases. This has improved slightly since the previous study of 08/21/2018. The endotracheal tube and NG tube have been removed. IMPRESSION: Slightly improved bibasilar pneumonia. Electronically signed by Eugene Donaldson 08/22/2018 7:09 AM
[2018-08-22] MEDS: TIMOPTIC 0.5% OPH SOLUTION BOTH EYES SCH (08:09)
[2018-08-22] MEDS: MYCOSTATIN SUSP PO SCH ×4 (08:09→21:24)
--- NOTE | 2018-08-22 08:49 | PROGRESS NOTE ---
DATE: 08/22/2018 SUBJECTIVE: This patient has been extubated yesterday. She is alert and she is oriented x2. She is not oriented to time. Her pressors were stopped yesterday as well, but the blood pressure has been on the low side with stable map. Systolic blood pressure has been in the high 80s and 90s mostly. No family members at the bedside. X-ray showed slightly improved bibasilar pneumonia. I will give her some ice chips today to see how she does and I will ask also for a formal swallow evaluation, but I believe at this moment she is extremely weak to pass the swallow test, but she is requesting something to eat. OBJECTIVE: Vital Signs: Temperature 97.9, pulse 83, respiratory rate 39, blood pressure 85/56, oxygen saturation 100% on 2 L of nasal cannula. HEENT: Head normocephalic. No trauma. PERRLA. Neck: Supple. No JVD. Central trachea. Chest: Coarse breath sounds bilaterally with rhonchi at the bases. Decreased breath sounds at the bases as well. Abdomen: Soft. Somewhat distended. No changes. She has some kind of mass on the right side of the abdomen. I believe it is inside the abdominal wall measuring 4 x 1.5 cm. There is no redness or discharge coming out from that area. Positive bowel sounds. Extremities: 1 to 2+ lower extremity edema. No clubbing. No cyanosis. Genitourinary: She is still passing some stools from her vagina. It looks like there is rectal vaginal fistula. Neurological: The patient is alert. She is oriented x2. She is following commands, but she is extremely weak. She is oriented x2. Not to time. Back: She does have multiple ulcers, mostly in the sacral area and gluteal area. LABORATORY: WBC 3.7, hemoglobin 8.3, hematocrit 25.7 platelets 56. Sodium 133, potassium 4.1, chloride 101, bicarbonate 15, BUN 62, creatinine 1.2, glucose 189. Calcium 9.1. ASSESSMENT AND PLAN: 1. Metabolic encephalopathy. She seems to be doing better. She is oriented x2. She is not oriented to time. Will continue with the same management for now. 2. Acute hypoxemic respiratory failure secondary to pneumonia complicated with underlying malignancy and septic shock. Continue with broad spectrum antibiotics. She is allergic to penicillin. Pulmonary Department on board. She has been extubated yesterday and she seems to be doing better. 3. Septic shock secondary to pneumonia. Continue with the same management. 4. Metastatic pancreatic cancer. Hematology/Oncology on board. 5. Extensive deep venous thrombosis. For now, we need to continue with heparin drip. Hematology/Oncology following this patient. Continue with the same management for now. 6. Acute kidney injury. Continue with the same treatment. She is getting a little bit better. 7. Transaminitis, likely secondary to shock liver. 8. Coagulopathy and thrombocytopenia. Aware. For now, we will need to continue monitoring this patient. 9. Hypernatremia, resolved. 10. Hypokalemia, resolved. 11. Hyperglycemia with a hemoglobin A1c of 6.8, continue with the same management. 12. Severe protein calorie malnutrition with failure to thrive and cachexia. Today, I will give her some ice chips and I will ask for a formal swallow evaluation. I think she is really weak and probably she is not going to pass the swallow test. 13. Deep vein thrombosis prophylaxis with heparin. 14. Decubitus ulcer. Continue with same management. Wound care on board. Overall, this patient has an extremely poor prognosis due to her current condition, metastatic disease, weakness and age. Her daughter has been keeping this patient Full Code. cc: Daniel Valentino MD
--- NOTE | 2018-08-22 09:37 | PULMONOLOGY PROGRESS NOTE ---
DATE: 08/22/2018 SUBJECTIVE: The patient is awake and alert. She has a weak cough. She is asking for some tea. She is without specific complaints. OBJECTIVE: Vital Signs: Blood pressure 95/61, heart rate 86, respiratory rate 38, oxygen saturation 100% on 2 L per nasal cannula. HEENT: Pupils are equal and reactive. Bitemporal wasting. Oropharynx reveals ill-fitting dentures. Neck: Supple. Chest: Reveals bibasilar crackles with rhonchi over the large airway. Abdomen: Mildly distended with decreased bowel sounds. Extremities: Reveal 2+ edema in the lower extremities. Laboratories: White blood count 3.71, hemoglobin 8.3, platelet count 56,000. Sodium 133, potassium 4.1, chloride 101, bicarbonate 15, anion gap 17, BUN 65, creatinine 1.2. IMPRESSION: A 73-year-old with metastatic pancreatic cancer with a rectal mass and rectovaginal fistula, Enterobacter cloacae pneumonia, bilateral deep vein thrombosis, acute hypoxemic respiratory failure, acute renal injury, resolving shock. The patient has been successfully extubated. She has a weak cough and overall is extremely weak. Her prognosis remains poor. RECOMMENDATIONS: 1. Attempt sips of clear liquids at patient's request. 2. Continue broad-spectrum antibiotics. 3. Continue Clinimix. 4. Ongoing end of life discussions with Ms. Hatch's daughter. Her prognosis is extremely poor. cc: Jeremiah Garcia MD
[2018-08-22 12:42] LABS: INR 1.21; PROTIME 16.3 Seconds (11.0-16.0)
[2018-08-22] MEDS: HEPARIN 25,000 UNITS/D5W 25,000 UNIT/250 ML IV.SOLN IV SCH (16:29)
[2018-08-23] MEDS: HUMULIN R SUBQ SCH ×6 (00:59→21:09)
[2018-08-23] MEDS: CLINIMIX E 4.25%-5% SOLUTION 1,000 ML IV SCH (01:54)
[2018-08-23] MEDS: ZYVOX 600 MG/D5W 600 MG/300 ML IVPB IV SCH ×2 (01:54→13:01)
[2018-08-23] MEDS: MERREM 500 MG in NS 50 ML IV SCH ×3 (03:23→17:59)
[2018-08-23 05:59] LABS: HEMATOCRIT 29.6 % (37.0-47.0); HEMOGLOBIN 9.6 g/dL (12.0-16.0); MCH 25.9 PG (27-31); MCHC 32.4 g/dL (33-37); PLT 84 X1000 (130-400); RDW 18.2 % (11.5-14.5); WBC 4.52 X1000 (4.8-10.8)
[2018-08-23] MEDS: SODIUM CHLORIDE 0.9% INJ SCH (06:19)
[2018-08-23] MEDS: PROTONIX IV SCH ×2 (06:19→17:58)
[2018-08-23 06:21] LABS: ALB/GLOB RATIO 0.6; ALBUMIN 2.3 g/dL (3.5-5.0); CALCIUM 9.1 mg/dL (8.8-10.2); CREATININE 1.4 mg/dL (0.5-0.9); POTASSIUM 3.7 mmol/L (3.5-5.1); TOTAL BILIRUBIN 0.79 mg/dL (0.20-1.00); TOTAL PROTEIN 6.4 g/dL (6.3-8.3)
--- NOTE | 2018-08-23 08:07 | PROGRESS NOTE ---
DATE: 08/23/2018 SUBJECTIVE: The patient has been extubated 2 days ago. She is not on pressors at this moment. We did a swallow evaluation yesterday, and it looks like she is tolerating liquid diet. So I will continue with the same management. Her prognosis is still extremely poor, and the reason is that she has metastatic pancreatic cancer. She has a rectovaginal fistula and because of that, she is constantly getting feces from her bowel to the vagina. She is extremely weak and because of her age as well. OBJECTIVE: Vital Signs: Temperature 98, pulse 88, respiratory rate 34, blood pressure 92/64, oxygen saturation 93 on 2 L of nasal cannula. HEENT: Head normocephalic. No trauma. PERRLA. Neck: Supple. No JVD. No masses. Central trachea. Chest: Coarse breath sounds bilaterally with rhonchi at the bases and some crepitus. The breath sounds are decreased at the bases as well. Abdomen: Soft, somewhat distended. No changes compared with yesterday. It looks like she has an abdominal wall mass, measures around 4 x 1.5 cm. Extremity: One to 2+ lower extremity edema. No clubbing. No cyanosis. Genitourinary: She still passes some stools from her vagina. It looks like there is a rectovaginal fistula. Neurological: This patient is alert. She is oriented x2. She is not oriented to time. She is extremely weak. Back: She does have multiple ulcers, mostly in the sacral area and gluteal area. LABORATORY: WBC 4.5, hemoglobin 9.6, hematocrit 29.6, platelets 84,000. Sodium 134, potassium 3.7, chloride 106, bicarbonate 16, BUN 72, creatinine 1.4, glucose 167, calcium 9.1, albumin 2.3. ASSESSMENT AND PLAN: 1. Metabolic encephalopathy. She seems to be better. She is oriented x2. She is not oriented to time. We will continue with the same management for now. 2. Acute hypoxemic respiratory failure secondary to pneumonia complicated with underlying malignancy and septic shock. Continue with broad spectrum antibiotics. She is allergic to penicillin. She has been extubated 2 days ago. Pulmonary Department following this patient closely. 3. Septic shock secondary to pneumonia. Continue with the same management. We have stopped already her pressors. 4. Metastatic pancreatic cancer. Hematology-Oncology on board. 5. Extensive deep venous thrombosis. For now, we will continue with heparin drip. Hematology/Oncology following this patient. Continue with the same management for now. 6. Acute kidney injury has been stable for the past few days. We will continue to monitor. 7. Transaminitis, likely secondary to shock liver. 8. Coagulopathy and thrombocytopenia, aware. Continue to monitor. 9. Hypernatremia, resolved. 10. Hypokalemia, resolved. 11. Hyperglycemia with a hemoglobin A1c of 6.8, likely this patient has diabetes. Will monitor. 12. Severe protein calorie malnutrition with failure to thrive and cachexia. Yesterday, a swallow evaluation evaluated this patient, and they have recommended a liquid diet. For now, we will continue with Clinimix, and we will start this patient on liquid diet as well. 13. Deep vein thrombosis prophylaxis with heparin. 14. Decubitus ulcer. Continue with the same management. Wound care on board. 15. Overall, this patient has an extremely poor prognosis due to her current condition, metastatic disease, weakness, and age. Case has been discussed multiple times with her daughter. At some point, this patient was DNR level 1, but now for a few days back, she decided to put this patient back on full code. cc: Daniel Valentino MD
[2018-08-23] MEDS: MYCOSTATIN SUSP PO SCH ×4 (08:28→22:02)
[2018-08-23] MEDS: TIMOPTIC 0.5% OPH SOLUTION BOTH EYES SCH (08:28)
--- NOTE | 2018-08-23 10:36 | PULMONOLOGY PROGRESS NOTE ---
DATE: 08/23/2018 SUBJECTIVE: The patient is awake, alert. Her dentures do not fit and this is upsetting her. She reports "I am getting too old for this." She is very weak. OBJECTIVE: Vital signs: BP 187/65, heart rate 90,respiratory rate 36, oxygen saturation 98%. HEENT: Pupils are equal and reactive. Bitemporal wasting. Oropharynx is dry, but clear. Neck: Supple. Chest: Reveals shallow breath sounds. Abdomen: Reveals moderate distention with dullness to percussion. Extremities: Lower extremities are edematous bilaterally. LABORATORIES: White blood count 4.52, hemoglobin 9.6, platelet count 84,000. Sodium 134, potassium 3.7, chloride 100, bicarbonate 16, BUN 72. Creatinine 1.4. IMPRESSION: A 73-year-old with metastatic pancreatic cancer, acute hypoxemic respiratory failure, pneumonia, acute renal failure, rectal mass with a rectovaginal fistula, and severe protein calorie malnutrition. Her prognosis remains extremely poor but daughter continues to push for aggressive management. RECOMMENDATIONS: 1. Continue sips of liquid as tolerated. 2. Continue antibiotics. 3. Continue Clinimix. 4. Continue comfort measures. The patient does remain a full code. 5. Ongoing end of life discussions with Ms. Hatch's daughter. cc: Jeremiah Garcia MD
[2018-08-23] MEDS: MORPHINE IV PRN (10:57)
[2018-08-23] MEDS: HEPARIN 25,000 UNITS/D5W 25,000 UNIT/250 ML IV.SOLN IV SCH (15:36)
--- NOTE | 2018-08-23 17:56 | HEMO/ONC PROGRESS NOTE ---
DATE: 08/23/2018 Ms Hatch's HIT antibody has come back as negative. 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 We actually checked a DIC panel again yesterday and this was still fine. We recommend transfusing for any active bleeding or for a platelet count that is less than or equal to 10,000. We will be available as needed. The patient can follow up with her oncologist in [place] once she is discharged to discuss any further treatments with her pancreatic cancer. Dictated by QUINN Meeks for Dorothea Capone MD cc: Dorothea Capone MD
[2018-08-24] MEDS: HUMULIN R SUBQ SCH ×5 (00:47→16:27)
[2018-08-24] MEDS: ZYVOX 600 MG/D5W 600 MG/300 ML IVPB IV SCH ×2 (02:26→14:04)
[2018-08-24] MEDS: CLINIMIX E 4.25%-5% SOLUTION 1,000 ML IV SCH (02:26)
[2018-08-24] MEDS: MORPHINE IV PRN (03:16)
[2018-08-24] MEDS: MERREM 500 MG in NS 50 ML IV SCH ×3 (03:26→18:34)
[2018-08-24] MEDS: PROTONIX IV SCH ×2 (06:12→18:30)
[2018-08-24] MEDS: ATIVAN IV PRN (06:15)
[2018-08-24 06:23] LABS: HEMATOCRIT 26.2 % (37.0-47.0); HEMOGLOBIN 8.6 g/dL (12.0-16.0); MCH 26.4 PG (27-31); MCHC 32.8 g/dL (33-37); MCV 80.4 FL (81-99); PLT 71 X1000 (130-400); RBC 3.26 XMIL (4.2-5.4); RDW 17.7 % (11.5-14.5); WBC 4.55 X1000 (4.8-10.8)
[2018-08-24 07:00] LABS: ALB/GLOB RATIO 0.6; ALBUMIN 2.2 g/dL (3.5-5.0); CALCIUM 9.1 mg/dL (8.8-10.2); CREATININE 1.5 mg/dL (0.5-0.9); TOTAL BILIRUBIN 0.65 mg/dL (0.20-1.00)
[2018-08-24] MEDS: LEVOPHED 8 MG in D5 1/2 NS 250 ML IV SCH (08:00)
--- NOTE | 2018-08-24 08:11 | PROGRESS NOTE ---
DATE: 08/24/2018 SUBJECTIVE: This patient has been extubated 3 days ago. At this moment, this patient is somnolent because she received a low dose of Ativan, I think 0.5 mg x1, due to severe agitation. Her urine output has been dropping during the night, and she is having increased edema, mostly lower extremities, and probably abdomen. I will consult Nephrology Department to see if they can help with this patient since she is full code. I do not think she is a candidate for any kind of procedure, but the daughter wants to continue with the whole treatment. Overall, her prognosis is extremely poor. All of this has been explained to the patient's daughter, but she wants to continue treatment. OBJECTIVE: Vital Signs: Temperature 97 degrees, pulse 88, respiratory rate 23, blood pressure 98/66, oxygen saturation 100% on 2 L of nasal cannula. HEENT: Head normocephalic. No trauma. PERRLA. Neck: Supple. No JVD. No masses. Central trachea. Chest: Decreased breath sounds bilaterally, with rhonchi at the bases and crepitus. The breath sounds are decreased also at the bases. Abdomen: Soft, somewhat distended. No changes compared with the previous days. It looks like she has an abdominal wall mass, measuring about 4 x 1.5 cm. Positive bowel sounds. Extremities: 3+ lower extremity edema. No clubbing. No cyanosis. Genitourinary: She is passing some stools from her vagina, due to her rectovaginal fistula. Neurological: This patient is sleepy at this moment. She is moaning with pain stimulation, and also she moves the extremities with pain stimulation, as well. She just received a dose of Ativan because of severe agitation. Back: She does have multiple ulcers, mostly in the sacral area and gluteal area. They do not look infected, maybe a stage II to III. LABORATORY STUDIES: WBC 4.5, hemoglobin 8.6, hematocrit 26.2, platelets 71,000. Sodium 134, potassium 4, chloride 99, bicarbonate 18, BUN 88, creatinine 1.5, glucose 201. Calcium 9.1. Albumin 2.2. ASSESSMENT AND PLAN: 1. Metabolic encephalopathy. Yesterday, she was better. She was oriented x2. Today, she was agitated, and she received a little dose of Ativan, and now she is sleeping. We will continue to monitor. 2. Acute hypoxemic respiratory failure secondary to pneumonia, complicated with underlying malignancy and septic shock. Continue with broad spectrum antibiotics. She is allergic to penicillin. She has been extubated 3 days ago. Pulmonary Department following this patient. 3. Septic shock secondary to pneumonia. For now, we will continue with the same management. Upon admission, her WBC was 22,000, and now is 4.5. She is not on pressors at this moment. 4. Metastatic pancreatic cancer. Hematology/Oncology on board, but they basically signed off of this case. I do not think we have too many options for this patient. 5. Extensive deep venous thrombosis. Continue with heparin drip. 6. Acute kidney injury. Has been stable for the past few days, but now the urine output has been dropping, and she is volume overloaded because of that. I will give her some albumin, and I will request an evaluation by Nephrology Department, even though I do not think she is a candidate for any kind of procedure, but I will wait for their recommendation. 7. Transaminitis, likely secondary to shock liver. 8. Coagulopathy and thrombocytopenia. Aware. Continue to monitor., 9. Hypernatremia, resolved. 10. Hypokalemia, resolved. 11. Hyperglycemia, with a hemoglobin A1c of 6.8. Likely, this patient has diabetes. Will monitor. 12. Severe protein calorie malnutrition, with failure to thrive and cachexia. This patient apparently has been tolerating a little bit of liquid diet. At this moment, she is somnolent because of her recent treatment, but I will continue with Clinimix. 13. Deep vein thrombosis prophylaxis with heparin. 14. Decubitus ulcers. Continue with the same management. Wound Care on board. 15. Rectovaginal fistula. Surgery Department evaluated this patient. They are not offering any kind of procedure at this moment. Overall, this patient has an extremely poor prognosis due to her critical condition, metastatic disease, weakness, and age. Multiple comorbidities. This patient is still full code. CRITICAL CARE TIME: 40 minutes. cc: Daniel Valentino MD
--- NOTE | 2018-08-24 08:46 | Diag Imaging Result Doc PS360 ---
CHEST-PORTABLE - 08/24/2018 INDICATION: dyspnea COMPARISON: 08/22/2018 FINDINGS: Stable severely low lung volumes. Slight worsening nonspecific bibasilar infiltrates or areas of atelectasis. No pneumothorax or significant pleural effusion. Heart size is normal. IMPRESSION: Worsening bibasilar infiltrates or atelectasis. Electronically signed by Aguila Domínguez 08/24/2018 8:43 AM
[2018-08-24] MEDS: MYCOSTATIN SUSP PO SCH ×4 (09:07→21:56)
[2018-08-24] MEDS: ALBUMIN 25% IV SCH (09:07)
[2018-08-24] MEDS: TIMOPTIC 0.5% OPH SOLUTION BOTH EYES SCH (09:10)
--- NOTE | 2018-08-24 09:33 | PULMONOLOGY PROGRESS NOTE ---
DATE: 08/24/2018 SUBJECTIVE: The patient is more lethargic this morning. She did receive some Ativan last evening. She will respond to painful stimuli. OBJECTIVE: Blood pressure 98/66, heart rate 88, respiratory rate 23, oxygen saturation 100% on 2 L per nasal cannula. HEENT: Bitemporal wasting. Oropharynx is clear. Neck is supple. Chest reveals shallow breath sounds bilaterally without wheezing or rhonchi. Cardiac exam: S1-S2. Abdomen is soft with diminished bowel sounds. Extremities reveal edema in the lower extremities associated with deep vein thrombosis. LABORATORIES: Chest x-ray reveals shallow inspiration with increased atelectasis in the bases. White blood count 4.55, hemoglobin 8.6, platelet count 71,000. Chemistry: Sodium 134, potassium 4.0, chloride 99, bicarbonate 18. BUN 88, creatinine 1.5. Glucose 201. IMPRESSION: A 73-year-old with metastatic pancreatic cancer, severe protein calorie malnutrition, acute hypoxemic respiratory failure, acute renal failure, rectal mass with rectovaginal fistula with continued decline. She now has some progressive renal dysfunction. She is developing some progressive altered mental status. The patient is unlikely to leave this hospitalization alive. Her prognosis is extremely poor. Ms. Hatch's daughter is not at the bedside but has continued to press for aggressive care. RECOMMENDATION: 1. Continue current antibiotics. 2. Continue Clinimix. 3. Continue comfort measures as tolerated. 4. Ongoing end of life discussions with Ms. Hatch's daughter. Hopefully, she can transition to acceptance of her mother's fate and ultimate dying. cc: Jeremiah Garcia MD
[2018-08-24] MEDS: HEPARIN 25,000 UNITS/D5W 25,000 UNIT/250 ML IV.SOLN IV SCH (16:15)
--- NOTE | 2018-08-24 16:22 | NEPHROLOGY CONSULTATION ---
DATE: 08/24/2018 REASON FOR CONSULTATION: Acute kidney injury. HISTORY OF PRESENT ILLNESS: Ms Hatch is a 73-year-old white female with a very complicated history. She has been in the hospital since the second. She has metastatic pancreatic carcinoma and has been under the care of oncologist in [place]. She was not able to receive chemotherapy at her last encounter because of her frailty. She was admitted to the hospital on the second with altered sensorium, metabolic encephalopathy, overt shock. She was intubated and treated with empiric broad-spectrum antibiotics, vasopressor support, etc. She is now extubated, but unresponsive. She has been off the ventilator since early on the . In that context, her blood pressure has been somewhat low. Urine volume has been somewhat low and she has been in positive fluid balance according to the chart at +23 liters. She has been having liquid stool that is not quantified. In this context, her creatinine was 2.3 on presentation with a peak of 2.4 and 1.5 today. PAST MEDICAL HISTORY: As above. She also has diabetes. CURRENT MEDICATIONS: Current medications Include albumin, parental nutrition, heparin, norepinephrine, lorazepam, meropenem, morphine, nystatin oral, ondansetron, pantoprazole, Tylenol drops, linezolid. ALLERGIES: Penicillin. SOCIAL HISTORY, FAMILY HISTORY AND REVIEW OF SYSTEMS: Cannot be obtained otherwise. PHYSICAL EXAMINATION: Vital Signs: Blood pressure 98/66, heart rate 88, respirations 23, afebrile. General: She is obtunded and unresponsive. She is frail, thin with obvious loss of muscle mass. Skin: Pale and dry. HEENT: Conjunctivae are pink. Pupils are equal. Oropharynx is dry and she is mouth breathing. Edentulous. Neck: Supple. Trachea is midline. Neck veins are not distended. Heart: Point of maximal impulse is nonpalpable. Auscultation demonstrates a regular rhythm. Lungs: Have equal breath sounds that are coarse, somewhat shallow, a few scattered crackles. Abdomen: Soft. Nontender. Nondistended. Diminished bowel sounds. No palpable masses or organomegaly. Extremities: Have 2+ edema. No clubbing or cyanosis. Neurologic Exam: Otherwise nonfocal. IMPRESSION: Renal failure. Her baseline creatinine was 0.7 in May. Her creatinine has ranged between 1.2 and 2.4 on admission. It was actually higher earlier during her hospitalization. BUN is rising. She has been in positive fluid balance and has significant edema. We will check urine electrolytes, eosinophils, etc. No abdominal imaging since admission, so we will perform an ultrasound on Sunday. I have reviewed her medications. No changes are required at this time. She does not meet criteria for dialysis and certainly renal failure is not the cause for her coma. Additionally, because of her marked hemodynamic instability and frailty, she is not a candidate for dialysis because of her high risk of in that context. We will follow and offer advice as we are able. No changes today. cc: Kaiser Zuniga MD
[2018-08-24 16:47] LABS: URINE SOURCE CATH
[2018-08-24 16:52] LABS: BILIRUBIN URINE NEGATIVE (NEGATIVE); BLOOD URINE MODERATE (NEGATIVE); COLOR YELLOW; GLUCOSE URINE NEGATIVE (NEGATIVE); KETONE URINE NEGATIVE (NEGATIVE); LEUKOCYTES URINE LARGE (NEGATIVE); NITRITE URINE NEGATIVE (NEGATIVE); PROTEIN URINE TRACE mg/dL (NEGATIVE); SP GRAVITY URINE 1.009; TURBIDITY URINE HAZY (CLEAR); UROBILINOGEN URINE NORMAL (NORMAL)
[2018-08-24 16:54] LABS: UR EPITHELIAL CELLS <10 /HPF (<10); URINE BACTERIA NEGATIVE /HPF; URINE RBC TNTC /HPF (<10); URINE WBC TNTC /HPF (<10)
[2018-08-24 17:00] LABS: URINE CASTS GRANULAR PRESENT; URINE CRYSTALS NONE SEEN; URINE SMALL ROUND CELLS TRANS PRESENT; URINE YEAST PRESENT
[2018-08-24 17:08] LABS: UR CREAT RANDOM < 4.2 mg/dL (11-20); UR PROT RANDOM < 4.0 mg/dL
[2018-08-24 17:09] LABS: UR SODIUM 19 mmoll
[2018-08-25] MEDS: HUMULIN R SUBQ SCH ×7 (01:34→21:49)
[2018-08-25] MEDS: CLINIMIX E 4.25%-5% SOLUTION 1,000 ML IV SCH (01:39)
[2018-08-25] MEDS: ZYVOX 600 MG/D5W 600 MG/300 ML IVPB IV SCH ×2 (01:39→13:18)
[2018-08-25] MEDS: MERREM 500 MG in NS 50 ML IV SCH ×3 (03:57→18:12)
[2018-08-25 04:14] LABS: HEMATOCRIT 23.4 % (37.0-47.0); HEMOGLOBIN 7.5 g/dL (12.0-16.0); MCHC 32.1 g/dL (33-37); PLT 61 X1000 (130-400); RBC 2.89 XMIL (4.2-5.4); RDW 17.7 % (11.5-14.5); WBC 5.11 X1000 (4.8-10.8)
[2018-08-25 04:31] LABS: ALB/GLOB RATIO 0.9; ALBUMIN 2.9 g/dL (3.5-5.0); CALCIUM 9.1 mg/dL (8.8-10.2); CREATININE 1.4 mg/dL (0.5-0.9); TOTAL BILIRUBIN 0.83 mg/dL (0.20-1.00)
[2018-08-25] MEDS: MORPHINE IV PRN ×3 (04:58→23:20)
[2018-08-25] MEDS: PROTONIX IV SCH ×3 (05:28→18:13)
--- NOTE | 2018-08-25 08:08 | PROGRESS NOTE ---
DATE: 08/25/2018 SUBJECTIVE: The patient had been extubated 4 days ago. At this moment, this patient looks more awake. She is able to say her name but she is confused. Nephrology department evaluated this patient. She is not a candidate for dialysis. She is on pressors. We will continue with the same management. Prognosis is extremely poor. OBJECTIVE: Vital Signs: Temperature 97.4, pulse 76, respiratory rate 33, blood pressure 108/65, oxygen saturation 98 on 3 L of nasal cannula. HEENT: Head normocephalic. No trauma. PERRLA. Neck: Supple. No JVD. No masses. Central trachea. Chest: Decreased breath sounds bilaterally with rhonchi at the bases and crepitus. The breath sounds are decreased mostly at the bases. Abdomen: Soft. Mildly to moderately distended. No changes compared with the previous days. She has an abdominal mass measuring about 4 x 1.5 cm. Positive bowel sounds. Extremities: There is 3+ extremity edema. No clubbing. No cyanosis. Genitourinary: She is passing some stools from her vagina due to her rectovaginal fistula. Neurological Examination: This patient is more alert compared with yesterday. She is moaning with pain stimulation. She moves all extremities and she is following commands on and off but she is confused. She is oriented to person. Back: She does have multiple ulcers, mostly in the sacral area and gluteal area, maybe stage 2 to 3. Laboratory: WBC 5.1, hemoglobin 7.5, hematocrit 23.4, platelets 61,000. Sodium 134, potassium 4, chloride 99, bicarbonate 18, BUN 87, creatinine 1.4, glucose 154, calcium 9.1, albumin 2.9. ASSESSMENT AND PLAN: 1. Metabolic encephalopathy. We will continue to monitor for now. She is confused. She is oriented to person. She has been following commands on and off as well. 2. Acute hypoxemic respiratory failure secondary to pneumonia complicated with underlying malignancy and septic shock. Continue with broad spectrum antibiotics. She is allergic to penicillin. She was extubated 4 days ago. Pulmonary department following this patient. Continue with oxygen supplementation, breathing treatments, and pulmonary toilet. 3. Septic shock secondary to pneumonia. For now, we will continue with the same management. She is on pressors. WBC is normal now but she was admitted with 22,000 and increased afterwards to 31,000. 4. Extensive deep venous thrombosis. Continue with a heparin drip. 5. Acute kidney injury. She has been stable for the past few days but it looks like the urine output yesterday and the day before dropped. I started this patient on albumin and the urine output seems to be a little bit better today. She is not a candidate for dialysis. Nephrology department on board. 6. Transaminitis, likely secondary to shock liver. 7. Coagulopathy and thrombocytopenia. Aware. Continue to monitor. 8. Hypernatremia, resolved. 9. Hypokalemia, resolved. 10. Hyperglycemia with a hemoglobin A1c 6.8. Likely, this patient has diabetes. We will continue to monitor. 11. Severe protein calorie malnutrition with failure to thrive and cachexia. Continue with the same management. Continue with Clinimix. 12. Deep vein thrombosis prophylaxis with heparin. 13. Decubitus ulcers. Continue with the same management. Wound care on board. 14. Rectovaginal fistula. Surgery evaluated this patient. She is not a candidate for any kind of procedure at this moment. 15. Overall, this patient's prognosis is extremely poor due to her clinical condition, metastatic pancreatic cancer, weakness, age, rectovaginal fistula, and multiple comorbidities but this patient is still Full Code. I will try to talk to the daughter again. 16. Metastatic pancreatic cancer. Aware. CRITICAL CARE TIME: 35 minutes. cc: Daniel Valentino MD
[2018-08-25] MEDS: MYCOSTATIN SUSP PO SCH ×4 (09:01→21:49)
[2018-08-25] MEDS: TIMOPTIC 0.5% OPH SOLUTION BOTH EYES SCH (09:01)
[2018-08-25] MEDS: ALBUMIN 25% IV SCH (09:01)
--- NOTE | 2018-08-25 13:09 | PULMONOLOGY PROGRESS NOTE ---
DATE: 08/25/2018 SUBJECTIVE: Patient is lying with her eyes closed and her mouth open. She has mild work of breathing. She does open her eyes when her name is called but was not conversant. OBJECTIVE: The patient has been afebrile for the last 24 hours. Blood pressure 108/65, heart rate 76, respiratory rate 33, oxygen saturation 98% on 2 L per nasal cannula.HEENT: Pupils are equal and reactive. Oropharynx is clear but dry. Neck: Supple. Chest: Reveals shallow breath sounds bilaterally. Cardiac: S1, S2. Abdomen: Soft with diminished bowel sounds. Extremities: Reveal edema in the lower extremities associated with deep vein thrombosis bilaterally. LABORATORIES: White blood count 5.11, hemoglobin 7.5, platelet count 61,000. Sodium 134, potassium 4.0, chloride 99, bicarbonate 18, BUN 87, creatinine 1.4. IMPRESSION: This is a 73-year-old with metastatic pancreatic cancer, acute hypoxemic respiratory failure, rectal mass with rectovaginal fistula, severe protein calorie malnutrition, renal dysfunction, component of delirium. Patient's status has not significantly changed over the last 24 hours. RECOMMENDATIONS: 1. Continue current antibiotics. 2. Continue Clinimix. 3. Continue comfort measures. 4. Ongoing end-of-life discussions with Mrs. Hatch's daughter. Mrs. Hatch's prognosis is extremely poor. 5. Agree with Nephrology. She is unlikely to tolerate hemodialysis if she has progressive renal failure. cc: Jeremiah Garcia MD
[2018-08-25] MEDS: LEVOPHED 8 MG in D5 1/2 NS 250 ML IV SCH (13:18)
[2018-08-25] MEDS: HEPARIN 25,000 UNITS/D5W 25,000 UNIT/250 ML IV.SOLN IV SCH (16:29)
[2018-08-26] MEDS: HUMULIN R SUBQ SCH ×6 (00:58→20:08)
[2018-08-26] MEDS: CLINIMIX E 4.25%-5% SOLUTION 1,000 ML IV SCH ×2 (02:02→23:09)
[2018-08-26] MEDS: ZYVOX 600 MG/D5W 600 MG/300 ML IVPB IV SCH ×2 (02:02→15:09)
[2018-08-26] MEDS: MERREM 500 MG in NS 50 ML IV SCH ×3 (03:52→18:36)
[2018-08-26] MEDS: ATIVAN IV PRN ×2 (06:20→23:12)
[2018-08-26] MEDS: SODIUM CHLORIDE 0.9% INJ SCH ×2 (06:20→17:35)
[2018-08-26] MEDS: PROTONIX IV SCH ×2 (06:20→17:35)
[2018-08-26 06:33] LABS: ALBUMIN 3.1 g/dL (3.5-5.0); CALCIUM 9.2 mg/dL (8.8-10.2); CREATININE 1.2 mg/dL (0.5-0.9); TOTAL BILIRUBIN 0.72 mg/dL (0.20-1.00); TOTAL PROTEIN 6.1 g/dL (6.3-8.3)
[2018-08-26 06:47] LABS: HEMATOCRIT 22.5 % (37.0-47.0); HEMOGLOBIN 7.2 g/dL (12.0-16.0); MCH 26.2 PG (27-31); MCV 81.8 FL (81-99); PLT 32 X1000 (130-400); RBC 2.75 XMIL (4.2-5.4); RDW 17.7 % (11.5-14.5)
[2018-08-26 07:52] LABS: INR 1.17; PROTIME 15.9 Seconds (11.0-16.0)
--- NOTE | 2018-08-26 08:53 | PROGRESS NOTE ---
DATE: 08/26/2018 SUBJECTIVE: This patient has been extubated 5 days ago. At this moment, she is lethargic. Apparently she was agitated and she received a dose of Ativan. She is not following commands. She moans with pain stimulation and moves a little bit the extremities, but she is extremely weak. Her prognosis is extremely poor due to her metastatic pancreatic cancer, rectovaginal fistula, extensive DVT, respiratory failure and general condition. OBJECTIVE: Vital Signs: Temperature 98.6, pulse 86, respiratory rate 27 blood pressure 94/59, oxygen saturation 100% on a Venturi mask. HEENT: Head normocephalic. No trauma. PERRLA. Neck: Supple. No JVD. No masses. Central trachea. Chest: Decreased breath sounds bilaterally with rhonchi at the bases and crepitus. Breath sounds are more decreased at the bases. Abdomen: Soft. Moderately distended. No changes compared with previous days. Abdominal wall edema. He has an abdominal mass measuring around 4.4 x 1.5 cm on the right side of her umbilical scar. I do believe it is inside the abdominal wall. Positive bowel sounds. Extremities: 3+ lower extremity edema. No clubbing. No cyanosis. Genitourinary: She is passing some stools through her vagina due to a rectovaginal fistula. Neurological: At this moment, this patient is lethargic. She just received a dose of Ativan because of agitation. She is moaning with pain stimulation and she is able to move a little bit the extremities, but she is extremely weak. Back: She does have multiple ulcers, mostly in the sacral area and gluteal area, maybe stage 2 to 3. LABORATORY: WBC 3.1, hemoglobin 7.2, hematocrit 22.5, platelets 32. Sodium 130, potassium 4, chloride 96, bicarbonate 17, BUN 77, creatinine 1.2, glucose 126, calcium 9.2, albumin 3.1. ASSESSMENT AND PLAN: 1. Metabolic encephalopathy, continue to monitor for now. Yesterday, she was confused. She was oriented to person. Today, she is lethargic, because apparently she was agitated and she received a dose of Ativan. We will continue to monitor. 2. Acute hypoxemic respiratory failure secondary to pneumonia, complicated with underlying malignancy and septic shock. Continue broad-spectrum antibiotics. She is allergic to penicillin. She was extubated 5 days ago. Pulmonary Department following this patient closely. Continue oxygen supplementation, breathing treatment and pulmonary toilet. 3. Septic shock secondary to pneumonia. For now, we will continue with the same management. She is on pressors. Her pressor has been held. WBC stable. When she was admitted, her WBC was 22 and then increased to 31. 4. Extensive deep vein thrombosis. Continue with heparin drip. 5. Thrombocytopenia. This is getting worse. I will ask for fibrinogen and PT/INR to see if this patient has a DIC. I will monitor the platelet count closely. I will ask for a new platelet count in the afternoon. 6. Transaminitis, likely secondary to shock liver. 7. Coagulopathy, aware. Continue to monitor. 8. Hypernatremia, resolved. 9. Hypokalemia, resolved. 10. Metastatic pancreatic cancer. Aware. 11. Rectovaginal fistula. Surgery evaluated this patient and she is not a candidate for any kind of procedure at this moment given her current condition. 12. Hyperglycemia with a hemoglobin A1c of 6.8. Probably this patient has diabetes. Continue to monitor for now. 13. Severe protein calorie malnutrition with failure to thrive and cachexia. Continue with same management. She is on Clinimix. 14. Deep vein thrombosis prophylaxis with heparin. 15. Decubitus ulcer. Continue with same management. Wound care on board. Overall, this patient is extremely sick. The possibility of recovery is extremely low. I have been having multiple conversations with the daughter, which is the one that has been making all the decisions. She wants to continue with treatment. When she was admitted she was Full Code, and then the daughter changed her mind and put this patient Do Not Resuscitate level 1, but when this patient was close to being extubated, she changed her mind and put this patient back Full Code even though we explained to her multiple times that this patient is extremely sick. This patient has been thrombocytopenic, but the platelet count today dropped even more. So I will ask for a new platelet count in the afternoon around 2 p.m. to compare. Also, I asked for fibrinogen and PT/INR to see if this patient is in disseminated intravascular coagulation (DIC). For now, we will continue with the same management. I will try to talk to the daughter again today. CRITICAL CARE TIME: 35 minutes. cc: Daniel Valentino MD
[2018-08-26] MEDS: TIMOPTIC 0.5% OPH SOLUTION BOTH EYES SCH (08:57)
[2018-08-26] MEDS: ALBUMIN 25% IV SCH (08:58)
[2018-08-26] MEDS: MYCOSTATIN SUSP PO SCH ×4 (08:58→23:09)
--- NOTE | 2018-08-26 09:59 | PULMONOLOGY PROGRESS NOTE ---
DATE: 08/26/2018 SUBJECTIVE: The patient is lethargic. Mouth is open. Eyes are slightly open. She did not respond to my voice. OBJECTIVE: Vital Signs: The patient has been afebrile for the last 24 hours. Blood pressure 98/63, heart rate 97, respiratory rate 32. Oxygen saturation 100% on 40% FiO2. HEENT: Pupils are equal. Bitemporal wasting. Oropharynx appears dry. Neck: Supple. Chest: Reveals occasional rhonchi bilaterally. Cardiac exam: Regular rate. Normal S1, normal S2. Abdomen: Mildly to moderately distended. Bowel sounds are diminished. Extremities: Unchanged. LABORATORIES: White blood count 3.10, hemoglobin 7.2, platelet count 32,000. Sodium 130, potassium 4.0, chloride 96, bicarbonate 17, anion gap 17, BUN 77, creatinine 1.2. Albumin 3.1. IMPRESSION: A 73-year-old with: 1. Metastatic pancreatic cancer. 2. Hypoxemic respiratory failure. 3. Severe protein calorie malnutrition. 4. Sarcopenia. 5. Rectal mass with rectovaginal fistula. 6. Slow continued decline in performance status. Her current Karnofsky performance is approximately 20%. She is unlikely to survive this hospitalization. RECOMMENDATIONS: 1. Continue current comfort measures. 2. Continue Clinimix. 3. Continue antibiotics. 4. Continue ongoing support to Mrs. Hatch's daughter with ongoing end-of-life discussions. Ms. Hatch's daughter was angry at me early in her admission when I discussed her prognosis. This has been very difficult for her and I did apologize to her if I have added to her pain. cc: Jeremiah Garcia MD
--- NOTE | 2018-08-26 11:32 | NEPHROLOGY PROGRESS NOTE ---
DATE: 08/26/2018 SUBJECTIVE: Patient currently resting in bed. Minimally responsive. OBJECTIVE: Vital Signs: Temperature 98.6 degrees, pulse 90, respiratory rate 31, blood pressure 92/58. General: Chronically ill-appearing, elderly female resting in bed. Eyes are closed and does not interact. HEENT: Normocephalic, atraumatic. She has temporal wasting. Neck: Supple. There is no JVD. Cardiovascular: Regular rate and rhythm. Pulmonary : She has some rhonchi and coarse breath sounds bilaterally. Some decreased breath sounds posteriorly. Abdomen: Nondistended with hypoactive bowel sounds. : Greer catheter, small amount yellow urine noted. Extremities: 1 to 2+ edema, no clubbing, cyanosis. Integumentary: Skin is warm and dry. INPUT AND OUTPUT: Intake 2.5 L. Output 950 mL. LABORATORY DATA: WBC of 3.1, hemoglobin 7.2, platelets of 32,000. Sodium 130, potassium 4, CO2 17, creatinine 1.2. IMPRESSION: Renal failure. Her creatinine really is unchanged over the last 2 or 3 days, although she is at the low end of the range that she has been in while she has been here at the hospital. She has adequate urine output. No changes. Dictated by CONOR Mitchell for Kaiser Zuniga MD Face to face encounter, data reviewed, discussed with Eben Chaparro on 08/26/18. I agree with the above assessment and plan of care. cc: Kaiser Zuniga MD [facility]
[2018-08-26 14:42] LABS: PLT 44 X1000 (130-400)
[2018-08-26] MEDS: HEPARIN 25,000 UNITS/D5W 25,000 UNIT/250 ML IV.SOLN IV SCH (15:42)
[2018-08-26 18:45] LABS: CALCIUM 9.2 mg/dL (8.8-10.2); CREATININE 1.3 mg/dL (0.5-0.9); POTASSIUM 3.7 mmol/L (3.5-5.1)
[2018-08-26 23:16] LABS: CALCIUM 9.1 mg/dL (8.8-10.2); CREATININE 1.5 mg/dL (0.5-0.9)
[2018-08-27] MEDS: HUMULIN R SUBQ SCH ×7 (01:12→23:57)
[2018-08-27] MEDS: ZYVOX 600 MG/D5W 600 MG/300 ML IVPB IV SCH ×2 (02:02→14:42)
[2018-08-27] MEDS: MERREM 500 MG in NS 50 ML IV SCH ×3 (03:20→18:04)
[2018-08-27] MEDS: SODIUM CHLORIDE 0.9% INJ SCH (05:37)
[2018-08-27] MEDS: PROTONIX IV SCH ×2 (05:37→18:04)
[2018-08-27 05:51] LABS: HEMATOCRIT 20.6 % (37.0-47.0); HEMOGLOBIN 6.7 g/dL (12.0-16.0); MCH 26.7 PG (27-31); MCHC 32.5 g/dL (33-37); MCV 82.1 FL (81-99); PLT 41 X1000 (130-400); RBC 2.51 XMIL (4.2-5.4); RDW 17.6 % (11.5-14.5)
[2018-08-27 06:19] LABS: ALB/GLOB RATIO 1.3; ALBUMIN 3.4 g/dL (3.5-5.0); CALCIUM 8.3 mg/dL (8.8-10.2); CREATININE 1.3 mg/dL (0.5-0.9); POTASSIUM 3.8 mmol/L (3.5-5.1); TOTAL BILIRUBIN 0.79 mg/dL (0.20-1.00)
--- NOTE | 2018-08-27 07:16 | Diag Imaging Result Doc PS360 ---
EXAM: CHEST-PORTABLE 08/27/2018 HISTORY: dyspnea TECHNIQUE: AP portable at [id number] COMMENT: There is ill-defined alveolar opacity in both lower lobes. There may be small pleural effusions. Compared to 08/24/2018 there has been no appreciable change. This is certainly worse than on 08/22/2018 however. IMPRESSION: Pulmonary edema and/or pneumonia. Electronically signed by Eugene Donaldson 08/27/2018 7:13 AM
[2018-08-27] MEDS: TIMOPTIC 0.5% OPH SOLUTION BOTH EYES SCH (08:37)
[2018-08-27] MEDS: MYCOSTATIN SUSP PO SCH ×4 (08:39→20:25)
--- NOTE | 2018-08-27 09:10 | PULMONOLOGY PROGRESS NOTE ---
DATE: 08/27/2018 SUBJECTIVE: Patient is more alert this morning. She reports she is having difficulty breathing. She has mild work of breathing. OBJECTIVE: Vital Signs: Patient is afebrile. Blood pressure 98/64, heart rate 86, respiratory rate 24. Oxygen saturation 100% on nasal cannula. HEENT: Pupils are equal and reactive. There is bitemporal wasting. Oropharynx appears slightly dry. Neck: Supple. Chest: Reveals diffuse bilateral rhonchi. Cardiac: S1 and S2. Abdomen: Is mildly distended with no bowel sounds heard. Extremities: Unchanged. LABORATORIES: White blood count 2.6, hemoglobin 6.7, platelet count 41,000, sodium 130, potassium 3.8, chloride 96, bicarbonate 19, BUN 90, creatinine 1.3. Chest x-ray reveals bibasilar infiltrates with effusions without significant change, but worse over the last 5 days. IMPRESSION: 1. A 73-year-old with metastatic pancreatic cancer. 2. Pneumonia. 3. Hypoxemic respiratory . 4. Acute renal failure. 5. Severe protein calorie malnutrition. 6. Rectal mass with a rectovaginal fistula. 7. Sarcopenia. 8. Declining Karnofsky performance which is now approximately 20%. She is too weak to cough and clear her secretions. RECOMMENDATIONS: 1. Continue Clinimix for nutrition support. 2. Continue comfort measures. 3. Continue antibiotics. 4. Continued to be supportive of the daughter although she may not transition to accept her mother's . cc: Jeremiah Garcia MD
--- NOTE | 2018-08-27 13:21 | PROGRESS NOTE ---
DATE: 08/27/2018 SUBJECTIVE: Patient resting in bed. She is confused. She does have her daughter present in the room. OBJECTIVE: Her vital signs are as follows: Temperature is 97, pulse 79, respirations 27, blood pressure is 96/59. Oxygen saturation is 100%. HEENT: She is atraumatic, normocephalic. Cardiovascular: S1, S2. Respiratory System: She does have evidence of rales/rhonchi in the lung esposito. Abdomen is soft, full, nontender. No masses felt. Extremities: Have edema in both lower extremities. Central Nervous System: The patient is confused. No obvious focal deficits noted. LABORATORY DATA: WBC is 2.6. Hematocrit is 28.6 with a platelet count of 41,000. Sodium is 130, potassium is 3.8, chloride is 96, bicarb is 19. BUN is 19, creatinine is 1.3. Glucose is 167. Urine culture positive for yeast. Sputum culture positive for Enterobacter cloacae. ASSESSMENT AND PLAN: 1. Encephalopathy. Probably related to infective process. We will continue following the patient's mental status. 2. Pneumonia. Continue antibiotics. Maintain patient on oxygen and also on nebulized bronchodilators. 3. Septic shock. Continue antibiotics. Patient is currently off pressors. 4. Deep venous thrombosis lower extremity. Continue anticoagulation. 5. Thrombocytopenia, etiology not clear. Suspect this may be related to heparin. We may consider discontinue heparin; however, the patient states it for deep venous thrombosis. The patient may need an IVC filter for deep venous thrombosis so that we can discontinue heparin. 6. Metastatic pancreatic cancer, aware. The patient follows up with oncology in [place]. 7. Rectal vaginal fistula. Surgery consulted. 8. Anemia. We will type, cross, transfuse 2 units of packed red blood cells. 9. Prognosis poor. The patient's daughter wants her mom to be a FULL CODE at this time. cc: Wojciech Alegre MD
[2018-08-27] MEDS: HEPARIN 25,000 UNITS/D5W 25,000 UNIT/250 ML IV.SOLN IV SCH (14:44)
--- NOTE | 2018-08-27 15:19 | NEPHROLOGY PROGRESS NOTE ---
DATE: 08/27/2018 TIME SEEN: 0845 SUBJECTIVE: Patient remains minimally responsive. OBJECTIVE: Vital Signs: Temperature 97.6 degrees, pulse 89, respiratory rate 22, blood pressure 100/60, intake 2 L, output 550 mL. General: This is a chronically ill- appearing elderly female resting in bed no acute distress. HEENT: Normocephalic, atraumatic. Again temporal wasting. Oral mucosa is dry. Neck: Supple without JVD. Cardiovascular: Regular rate and rhythm. Pulmonary: She has rhonchi worse to the right. Abdomen: Soft with positive bowel sounds. : Not inspected. Extremities: No clubbing, cyanosis she has 1+ edema. Integument: Skin is pale, warm and dry. LAB DATA: WBC of 2.6, hemoglobin 6.7, sodium 130, potassium 3.8, CO2 19, creatinine 1.3. ASSESSMENT AND PLAN: 1. Renal failure. Renal function really unchanged. Again she is not a candidate for dialysis as this would likely not increase her survival. Urine output although in positive territory is adequate at this time. 2. Metastatic pancreatic cancer. Continue worsening clinically. 3. Thrombocytopenia followed by primary, oncology. Dictated by CONOR Mitchell for Kaiser Zuniga MD Face to face encounter, data reviewed, discussed with Eben Chaparro on 08/27/17. I agree with the above assessment and plan of care. cc: Kaiser Zuniga MD [facility]
[2018-08-27] MEDS ORDERED: NS 500 ML ONE (16:07)
[2018-08-27] MEDS: CLINIMIX E 4.25%-5% SOLUTION 1,000 ML IV SCH (20:21)
[2018-08-28] MEDS: ZYVOX 600 MG/D5W 600 MG/300 ML IVPB IV SCH ×2 (01:05→16:34)
[2018-08-28] MEDS: MERREM 500 MG in NS 50 ML IV SCH ×3 (03:16→20:18)
[2018-08-28] MEDS: HUMULIN R SUBQ SCH ×4 (05:21→16:18)
[2018-08-28] MEDS: PROTONIX IV SCH ×2 (06:11→20:18)
[2018-08-28 07:27] LABS: BASO# 0.02 X1000 (0.0-0.2); BASO% 0.7 % (0.0-0.8); EOS# 0.08 X1000 (0.0-0.7); EOS% 2.7 % (0.0-10.0); HEMATOCRIT 31.9 % (37.0-47.0); HEMOGLOBIN 10.7 g/dL (12.0-16.0); LYMPH# 0.66 X1000 (1.2-3.4); LYMPH% 22.1 % (20.5-51.1); MCH 27.4 PG (27-31); MCHC 33.5 g/dL (33-37); MCV 81.6 FL (81-99); MONO# 0.08 X1000 (0.11-0.59); MONO% 2.7 % (1.7-9.3); NEUT# 2.14 X1000 (1.4-6.5); NEUT% 71.8 % (42.2-75.2); RBC 3.91 XMIL (4.2-5.4); RDW 17.3 % (11.5-14.5); WBC 2.98 X1000 (4.8-10.8)
[2018-08-28 07:28] LABS: PLT 36 X1000 (130-400)
[2018-08-28 07:33] LABS: BANDS 2 % (0-1); EOS 2 % (1-10); LYMPHS 28 % (21-51); MONO 2 % (1-9); SEGS 64 % (42-75)
[2018-08-28 07:34] LABS: ANISOCYTOSIS 1+; HYPOCHROM 1+; LARGE PLATELETS 1+; POIKILOCYTOSIS 1+
[2018-08-28 07:54] LABS: ALB/GLOB RATIO 1.1; ALBUMIN 3.4 g/dL (3.5-5.0); CALCIUM 8.3 mg/dL (8.8-10.2); CREATININE 1.3 mg/dL (0.5-0.9); TOTAL BILIRUBIN 1.27 mg/dL (0.20-1.00); TOTAL PROTEIN 6.4 g/dL (6.3-8.3)
[2018-08-28] MEDS: MYCOSTATIN SUSP PO SCH ×3 (08:47→20:18)
[2018-08-28] MEDS: TIMOPTIC 0.5% OPH SOLUTION BOTH EYES SCH (08:56)
[2018-08-28] MEDS: ZOFRAN IV PRN (09:06)
--- NOTE | 2018-08-28 09:39 | NEPHROLOGY PROGRESS NOTE ---
DATE: 08/28/2018 SUBJECTIVE: Patient is awake and asking what is wrong with her. OBJECTIVE: Vital Signs: Temperature 97.5 degrees, pulse 91, respiratory rate 20, blood pressure 122/76. Intake 1.9 L. Output 550 mL. Physical Examination: General: This is a chronically ill-appearing, elderly female resting in bed. She is awake. She is asking questions. HEENT: Normocephalic, atraumatic. Temporal wasting. Oral mucosa dry. Dentition poor. Neck: Supple. No JVD. Cardiovascular: Regular rate and rhythm. Pulmonary: Continues with significant rhonchi and rales to the right. Decreased breath sounds. She has rhonchi to the left, though not as great. Abdomen: Soft, with positive bowel sounds. : Not inspected. Extremities: There is 1+ edema. No clubbing, cyanosis. Integumentary: Skin is pale, warm, and dry. Thin. Lab Data: WBC of 2.9, hemoglobin 10.7. Sodium 131, potassium 4.0, CO2 17, BUN 87, creatinine 1.3. ASSESSMENT AND PLAN: 1. Renal failure. Her creatinine is 1.3, although she is a significantly wasted patient with severe loss of muscle mass. She is not a candidate for dialysis. Urine output remains adequate, although she does remain in positive territory. We will continue to monitor and assist medically as appropriate. 2. Metastatic pancreatic cancer. Report of clinical worsening. Followed by primary and hematology/oncology. 3. Pneumonia. The patient is on appropriately dosed antibiotics, oxygen therapy , and nebulizers per primary and per pulmonology. Dictated by CONOR Mitchell for Kaiser Zuniga MD cc: Kaiser Zuniga MD [facility]
[2018-08-28 10:42] LABS: D-DIMER 5.44 ug/mLFEU (0.0-0.52)
--- NOTE | 2018-08-28 11:17 | PROGRESS NOTE ---
DATE: 08/28/2018 SUBJECTIVE: The patient resting in bed. Her sensorium seemed to be much improved today, and she is able to discuss intelligently. The patient's daughter currently not present in the room. OBJECTIVE: Vital signs: Temperature is 97.8 degrees, with a pulse of 95, respiratory rate is 26, blood pressure 117/78, oxygen saturation 100%. HEENT: She is atraumatic, normocephalic. Cardiovascular: S1, S2. Respiratory system: Good air entry bilaterally. No rales or rhonchi noted. Abdomen: Full, nontender. No masses felt. Extremities: No significant edema noted. Central nervous system: The patient is awake, alert. Her sensorium is much improved. LABS: WBC is 2.98, hematocrit 31.9 with a platelet count of 36,000. Sodium is 131, potassium 4.0, chloride is 96, bicarb 17, BUN is 87, creatinine is 1.3. ASSESSMENT AND PLAN: 1. Encephalopathy. The patient's sensorium has improved remarkably. We will continue to follow her mental status. 2. Pneumonia. Continue antibiotics. Maintain patient on oxygen. Also, maintain patient on nebulized bronchodilators. 3. Deep venous thrombosis of both lower extremities. The patient is currently on anticoagulation; however, she has continued to develop thrombocytopenia as well as her gastrointestinal bleed, so we will probably have to discontinue her anticoagulation and consult surgery for inferior vena cava filter placement. 4. Gastrointestinal bleed. Maintain patient on proton pump inhibitor. Follow up on hemoglobin and hematocrit. Transfuse packed red blood cells as needed. Consult with Gastroenterology. 5. Thrombocytopenia, most likely secondary to the effect of heparin. We will discontinue heparin at this time, and continue to follow up on patient's platelet count. Transfuse platelets if needed. 6. Metastatic pancreatic cancer. The is aware of this diagnosis. The patient has follow up with oncologist in [place] in the past. 7. Rectovaginal fistula. Surgery consulted. 8. Advanced directives. The patient is a full code as of this time. 9. Gastrointestinal prophylaxis. Proton pump inhibitor. 10. Deep vein thrombosis prophylaxis. Sequential compression devices. cc: Wojciech Alegre MD
[2018-08-28] MEDS: CLINIMIX E 4.25%-5% SOLUTION 1,000 ML IV SCH (16:34)
[2018-08-28] MEDS: MORPHINE IV PRN (16:54)
[2018-08-28] MEDS: CARAFATE LIQUID PO SCH (20:17)
[2018-08-29] MEDS: HUMULIN R SUBQ SCH ×6 (01:20→21:56)
[2018-08-29] MEDS: CARAFATE LIQUID PO SCH ×4 (02:29→21:56)
[2018-08-29] MEDS: ICAR-C PO SCH ×3 (02:31→21:57)
[2018-08-29] MEDS: ZYVOX 600 MG/D5W 600 MG/300 ML IVPB IV SCH ×2 (03:14→16:25)
[2018-08-29] MEDS: MERREM 500 MG in NS 50 ML IV SCH ×3 (03:14→21:53)
[2018-08-29 05:27] LABS: BASO# 0.02 X1000 (0.0-0.2); BASO% 0.9 % (0.0-0.8); EOS# 0.09 X1000 (0.0-0.7); EOS% 3.9 % (0.0-10.0); LYMPH# 0.45 X1000 (1.2-3.4); LYMPH% 19.7 % (20.5-51.1); MCH 27.6 PG (27-31); MCHC 33.3 g/dL (33-37); MCV 82.9 FL (81-99); MONO# 0.11 X1000 (0.11-0.59); MONO% 4.8 % (1.7-9.3); NEUT# 1.62 X1000 (1.4-6.5); NEUT% 70.7 % (42.2-75.2); RBC 3.62 XMIL (4.2-5.4); RDW 17.5 % (11.5-14.5); WBC 2.29 X1000 (4.8-10.8)
[2018-08-29 05:33] LABS: PLT 37 X1000 (130-400)
[2018-08-29 06:04] LABS: ALB/GLOB RATIO 0.9; ALBUMIN 2.9 g/dL (3.5-5.0); CALCIUM 8.1 mg/dL (8.8-10.2); CREATININE 1.5 mg/dL (0.5-0.9); POTASSIUM 3.9 mmol/L (3.5-5.1); TOTAL BILIRUBIN 0.77 mg/dL (0.20-1.00)
--- NOTE | 2018-08-29 06:29 | HEMO/ONC PROGRESS NOTE ---
DATE: 08/28/2018 SUBJECTIVE: We are going to go ahead and check another DIC panel on the patient given that her platelet count has decline some. We have previously checked HIT antibodies and they were negative. It is believed that the patient has medicine-induced thrombocytopenia versus thrombocytopenia related to acute illness. Again, we do not feel that the heparin is the cause of her thrombocytopenia. We would not recommend heparin with a platelet count less than 50,000. Agree with holding heparin at this time. We would recommend that antibiotics be reviewed. We noted that the patient is on Zyvox. She could potentially be transition to a different type of antibiotic that may also help her platelets. Again, we are going to go ahead and check that DIC panel, we will follow up. The goal would be for a fibrinogen greater than 250. We will continue to be available as needed. We will follow peripherally. Dictated by QUINN Meeks for Dorothea Capone MD cc: Dorothea Capone MD
--- NOTE | 2018-08-29 07:06 | CONSULTATION ---
DATE OF CONSULTATION: 08/28/2018 ATTENDING PHYSICIAN: Dr. Alegre. PRIMARY CARE PHYSICIAN: Dr. Fady Lorenzo. REASON FOR CONSULTATION: GI bleeding. HISTORY OF PRESENT ILLNESS: Ms. Hatch is a 73-year-old female, who was admitted on 08/13/2018 to [facility] with altered mental status. She has been recently diagnosed with metastatic pancreatic cancer. She has been evaluated by [facility], in [place], [place]. Here, she is being seen by Dr. Dorothea Capone and her team. She also is currently being treated for pneumonia and DVT of the lower extremities. She was on a heparin drip, which was started to treat the deep vein thrombosis of the lower extremities. While on heparin, she developed dark stools, and the heparin drip was stopped. She was also noted to be thrombocytopenic, and this could be secondary to heparin, and her heparin was recently stopped. The patient has a possible rectovaginal fistula. General Surgery has been consulted. Gastroenterology is consulted for further management of dark stools. PAST MEDICAL HISTORY: New diagnosis of pancreatic cancer. Diabetes. Upper extremity DVT. Previous history of GI bleeding. Altered mental status. Possible rectovaginal fistula. Pneumonia. PAST SURGICAL HISTORY: Hysterectomy. Middle finger surgery. Exploratory laparoscopy procedure due to bowel obstruction. SOCIAL HISTORY: Patient lives with her daughter. She used to be a heavy smoker, smoking 3 packs a day, but she stopped smoking 20 years ago. 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 FAMILY HISTORY: Noncontributory. REVIEW OF SYSTEMS: Limited, as the patient has encephalopathy. She did complain of abdominal discomfort. She denies any nausea or vomiting. According to the nursing staff, she has waxing and waning neurological status. MEDICATIONS IN THE HOSPITAL: Carafate, Tylenol, Clinimix. Heparin, which was discontinued. Humulin R, Ativan, Calmoseptine ointment, meropenem, morphine, nystatin, Zofran, Protonix, polyvinyl alcohol, eye drops, Metamucil, timolol, linezolid. Clear liquid diet currently. Ensure supplement. ALLERGIES: Penicillin. PHYSICAL EXAMINATION: Vital Signs: Temperature of 97.8 degrees, pulse rate of 86, respiratory rate 26, blood pressure 114/71, saturating 94% on nasal cannula 2 L. Body weight of 158 pounds. BMI 27.1 kg. General: Thinly-built, lying in bed. HEENT: Positive pallor. No icterus. Neck: Supple. She is mildly tachypneic. Abdomen: Firm. Discomfort throughout the abdomen. Question of bowel obstruction or ascites. The patient does have known metastatic pancreatic adenocarcinoma. Extremities: No cyanosis or clubbing. Neurologic: She was able to wake up and answer simple questions. LABS: Hemoglobin and hematocrit are 10.7 and 31.9. White count 2.98. Platelet count of 36. INR 1.17 on 08/26. PTT of 90.4. Sodium 131, potassium 4, chloride 96, bicarb of 17, anion gap 18, BUN of 87, creatinine 1.3, glucose of 141. Calcium is 8.3. Total bilirubin is 1.27. AST 20, ALT 11, alkaline phosphatase 70, total protein 6.4, albumin of 3.4. Urinalysis showed positive white cells, and urine culture showed yeast. Stool for occult blood was positive, and sputum showed Enterobacter cloacae, resistant to cefazolin. Blood cultures were drawn on 08/14/2018, showed no growth after 5 days. She had a C. difficile antigen, negative, and C. difficile toxin was also negative. Chest x-ray showed pulmonary edema and/or pneumonia. This was done on 08/27/2018. IMPRESSION AND PLAN: 1. Dark stools, with positive Hemoccult. 2. Anemia. 3. Thrombocytopenia. 4. Metastatic pancreatic adenocarcinoma. 5. Decubitus ulcer. 6. Rectovaginal fistula. 7. Encephalopathy. 8. Pneumonia. 9. DVT in the lower extremities. RECOMMENDATIONS: 1. I have spoken with the patient's nurse and with the primary care team by phone. The patient needs to have imaging done of the abdomen. The primary care team will mediate that, as her creatinine and BUN are high. 2. We will keep her on Protonix twice daily and Carafate 1 g every 6 hours. 3. Continue Clinimix for now. 4. She will continue broad spectrum antibiotics. 5. We will start her on Metamucil. 6. We will repeat her stool studies. 7. We will need to transfuse her as needed. If the patient starts to have massive GI bleeding, then we have to correct the platelets with a platelet transfusion. 8. Prognosis is poor, in the setting off metastatic pancreatic adenocarcinoma. I have spoken about this to the patient's primary care team. At this time, the patient is very frail for any kind of endoscopic procedure. We will follow and see how she does. 9. The above plan was discussed with the patient and the patient's nurse, and the primary care team, and all questions answered. Please call us with any questions. cc: MD Wojciech Melgar MD
--- NOTE | 2018-08-29 07:22 | Diag Imaging Result Doc PS360 ---
EXAM: CHEST-1 VIEW 08/29/2018 HISTORY: pneumonia TECHNIQUE: AP portable at 0620 COMMENT: There is bibasilar interstitial and alveolar opacity plus minus pleural effusions. Compared to the previous study of 08/27/2018 there has been some worsening. IMPRESSION: Worsened pulmonary edema versus pneumonia. Electronically signed by Eugene Donaldson 08/29/2018 7:19 AM
[2018-08-29] MEDS: MYCOSTATIN SUSP PO SCH ×5 (07:23→21:57)
--- NOTE | 2018-08-29 07:44 | PULMONOLOGY PROGRESS NOTE ---
DATE: 08/28/2018 SUBJECTIVE: The patient is awake. She has a soft voice. She is weak. She will periodically have a blank stare. OBJECTIVE: Vital Signs: The patient has been afebrile for the last 24 hours. Blood pressure 104/68. Heart rate 79. Respiratory rate 16. Oxygen saturation 100% on 2 L per nasal cannula. HEENT: Pupils were equal and reactive. Chest: Reveals occasional rhonchi bilaterally. Cardiac: Distant heart sounds. Normal S1, normal S2. Abdomen: Mildly distended, with diminished bowel sounds. Extremities: Reveal chronic lower extremity edema, associated with deep vein thrombosis. LABORATORY STUDIES: White blood count 2.98, hemoglobin 10.7, platelet count 36,000. Sodium 131, potassium 4.0, chloride 96, bicarbonate 17, BUN 87, creatinine 1.3, glucose 141. IMPRESSION: A 73-year-old with metastatic pancreatic cancer, pneumonia, hypoxemic respiratory failure, renal failure, protein calorie malnutrition, sarcopenia, rectal mass with rectovaginal fistula, with a poor Karnofsky performance of 20%. RECOMMENDATIONS: 1. Continue Clinimix. 2. Continue comfort measures. 3. Continue antibiotics. 4. Continue end of life discussions with the daughter. The patient's daughter continues to believe that she will miraculously recover from this illness. cc: Jeremiah Garcia MD
[2018-08-29] MEDS: TIMOPTIC 0.5% OPH SOLUTION BOTH EYES SCH (09:03)
[2018-08-29] MEDS: PROTONIX IV SCH ×2 (09:03→21:53)
[2018-08-29] MEDS: MORPHINE IV PRN ×2 (09:03→12:48)
[2018-08-29] MEDS: METAMUCIL PO SCH (09:05)
[2018-08-29] MEDS: CENTRUM SILVER PO SCH (09:05)
--- NOTE | 2018-08-29 11:31 | PROGRESS NOTE ---
DATE: 08/29/2018 SUBJECTIVE: Patient is resting in bed. I spoke to the patient's daughter at bedside. The patient is feeling the same. She is eating very little. I reviewed the records from [place] and from [facility]. The patient was diagnosed with pancreatic adenocarcinoma with peritoneal carcinomatosis, with small bowel obstruction in the past. She also had paracentesis done at [facility] a few weeks ago. She also has a history of constipation and GI bleeding, where she had a flexible sigmoidoscopy done at [place], which ruled out positive hemorrhoids. The patient is very weak and frail. She was seen by nephrologists this morning. They put her on Lasix and albumin. Her platelet count is still low at 37. Her heparin has been discontinued. We will try to see if he can get an ultrasound- directed paracentesis. Also obtain a KUB today. OBJECTIVE: Vitals: Temperature of 97.3 degrees, pulse 113, respiratory 23, blood pressure 107/72, saturating 91% on 2 L nasal cannula. General Appearance: Thinly built, lying in bed, currently sleeping. Was able to wake up on commands. HEENT: Pale conjunctivae. No icterus. Nasal cannula in place. Neck: Supple. Abdomen: Distended. Discomfort in the abdomen on palpation. Abdomen does feel firm and place is unclear is because of ascites or peritoneal carcinomatosis. Extremities: No cyanosis, clubbing. Bilateral lower extremity edema noted. Neuro edwards: She was sleeping, was able to wake up on command. She does answer simple questions. LABS: Her hemoglobin and hematocrit is 10 and 30, white count of 2.29, platelet count of 37,000. Sodium 131, potassium 3.9, chloride of 95, bicarb 16, anion gap 20, BUN 103, creatinine 1.5, glucose of 204, calcium is 8.1, total bilirubin is 0.77. AST 18 and ALT 10, alkaline phosphatase 72, total protein 6, albumin of 2.9. Her urine culture showed yeast. Her sputum culture showed Enterobacter cloacae. Her stool for occult blood was positive. Chest x-ray done today showing worsened pulmonary edema versus pneumonia. IMPRESSION AND PLAN: 1. Pancreatic adenocarcinoma with peritoneal carcinomatosis and previous history of small bowel obstruction. Currently, she is being treated at [facility] [place]. The patient's daughter is in communication with them. The patient was scheduled to start on chemotherapy in early August, but they missed it, because the patient was sick in the hospital. 2. Abdominal distention. Will obtain a KUB. Will try to get ultrasound-guided paracentesis. We will also schedule MRI of the abdomen without contrast if possible as the patient is hemodynamically stable to assess for any kind of bowel obstruction or peritoneal carcinomatosis. 3. Pneumonia. She is being treated by the pulmonary team. She is on antibiotics with meropenem and linezolid. 4. Pulmonary edema. She has been started on Lasix and albumin. 5. Elevated creatinine and BUN. She has been seen by Nephrology, and was started on Lasix and albumin. 6. Anemia. She is on Iron C b.i.d., multivitamin once daily. We will need to watch her blood counts. 7. Thrombocytopenia. We will give her 1 unit of platelets so that she can undergo ultrasound- guided paracentesis. 8. Malnutrition. She is on Clinimix at 45 per hour. 9. Dark stools. We will keep her on Protonix twice daily and Carafate 1 gram 6 hours. 10. Constipation. We will add MiraLAX 17 grams twice daily. She is also on Metamucil. 11. Question of rectovaginal fistula. Surgery is on board. 12. The above plan was discussed with the patient and family at bedside, and all questions answered. Please call with any further questions. cc: MD Dr. Fady Melgar MD Heather Shah, MD Clement Okinedo, MD
--- NOTE | 2018-08-29 12:43 | Diag Imaging Result Doc PS360 ---
KUB ABDOMEN - 08/29/2018 INDICATION: eval for bowel obstruction COMPARISON: None FINDINGS: There is a nonobstructive bowel gas pattern. No free air or abdominal calcifications. IMPRESSION: No acute disease. Electronically signed by Aguila Domínguez 08/29/2018 12:41 PM
[2018-08-29] MEDS: ALBUMIN 25% IV SCH (12:48)
--- NOTE | 2018-08-29 13:28 | Diag Imaging Result Doc PS360 ---
MRI ABDOMEN W/O CONTRAST - 08/29/2018 INDICATION: Abdominal distension, Pancreatic adenocarcinoma TECHNIQUE: COMPARISON: CT abdomen pelvis with contrast 05/24/2018 FINDINGS: There has been progression in the severe atrophy of the liver compatible with severe cirrhosis. There is severe ascites. There is severe right hydronephrosis and hydroureter down to the level of the urinary bladder. There is severe body wall edema. The spleen size is normal. The pancreas is not clearly delineated. IMPRESSION: 1. Severe progression of cirrhosis. Severe ascites. Normal spleen size. Severe body wall edema. 2. Severe right hydroureteronephrosis down to the level of the urinary bladder. 3. The pancreas is not clearly delineated. 4. Abdomen pelvis CT is recommended. Electronically signed by Aguila Domínguez 08/29/2018 1:26 PM
[2018-08-29] MEDS: CLINIMIX E 4.25%-5% SOLUTION 1,000 ML IV SCH ×2 (14:01→16:26)
--- NOTE | 2018-08-29 14:33 | PROGRESS NOTE ---
DATE: 08/29/2018 SUBJECTIVE: The patient is resting in bed. She is very lethargic this morning. I could barely get her to wake up. Apparently she had taken some narcotic analgesia. OBJECTIVE: Vital Signs: Temperature 97.3 degrees, pulse 84, respiratory rate 20, blood pressure 101/62, oxygen saturation 99%. HEENT: She is atraumatic and normocephalic. Cardiovascular: S1, S2. Respiratory: No rales or rhonchi noted. Abdomen: Full, nontender. No masses felt. Extremities: Edema in both lower extremities. Central nervous system: The patient is lethargic. No obvious focal deficits noted. LABORATORY DATA: WBC 2.9, hematocrit 30.0 with a platelet count of 37,000. Sodium 131, potassium 3.9, chloride 95, bicarb 16, BUN 103, creatinine 1.5. DIAGNOSTIC STUDIES: Abdominal x-ray shows nonobstructive gas pattern present. Abdominal MRI shows severe progression of cirrhosis and severe ascites. ASSESSMENT AND PLAN: 1. Encephalopathy. The patient sensorium seems not to be what it was like yesterday. This is a result of necrotic analgesia. Will continue to follow up on her neurologic status. 2. Pneumonia. Continue antibiotics. Maintain patient on oxygen as well as nebulized bronchodilators. 3. Deep venous thrombosis of both lower extremities. Surgery consult for inferior vena cava filter placement. Heparin discontinued because of gastrointestinal bleed as well as thrombocytopenia. 4. Gastrointestinal bleed. Maintain patient on proton pump inhibitor. Gastroenterology consulted. 5. Metastatic pancreatic cancer. Aware. The patient's oncologist is in [place]. 6. Rectovaginal fistula. Surgery aware. 7. Advance directive. The patient is a Full Code at this time. 8. Gastrointestinal prophylaxis. Proton pump inhibitor. 9. Deep vein thrombosis prophylaxis. Sequential compression devices. cc: Wojciech Alegre MD
[2018-08-29] MEDS: LASIX IV SCH (16:34)
[2018-08-29] MEDS: ATIVAN IV PRN (17:34)
[2018-08-29 19:16] LABS: ALLEN TEST YES; BE -8.9 mmoll (-3.0-3.0); BLOOD TYPE ARTERIAL; METHB 1.1 % (0.0-1.5); O2(CT) 12.3 mL/dL (15.0-23.0); O2HB 96.8 % (95.0-99.0); PCO2(98.6) 39 mmHg (35-45); PO2(98.6) 106 mmHg (60-100); SAMPLE BLOOD; SAO2 99.3 % (95.0-100.0); THB 8.9 g/dL (11.5-17.4); pH(98.6) 7.26 (7.35-7.45)
[2018-08-29 19:20] LABS: MODALITY VENTIMASK
[2018-08-29] MEDS: SODIUM CHLORIDE 0.9% INJ SCH (21:53)
[2018-08-29] MEDS: MIRALAX PO SCH (21:56)
[2018-08-30] MEDS: HUMULIN R SUBQ SCH ×7 (02:52→23:34)
[2018-08-30] MEDS: CARAFATE LIQUID PO SCH ×4 (02:53→20:07)
[2018-08-30] MEDS: MERREM 500 MG in NS 50 ML IV SCH ×3 (04:51→21:38)
[2018-08-30] MEDS: ZYVOX 600 MG/D5W 600 MG/300 ML IVPB IV SCH ×2 (04:51→16:34)
[2018-08-30] MEDS: LASIX IV SCH (04:51)
[2018-08-30 05:53] LABS: HEMATOCRIT 27.2 % (37.0-47.0); HEMOGLOBIN 8.9 g/dL (12.0-16.0); MCH 27.8 PG (27-31); MCHC 32.7 g/dL (33-37); MPV 12.1 FL (7.4-10.4); RBC 3.2 XMIL (4.2-5.4); RDW 17.7 % (11.5-14.5); WBC 2.31 X1000 (4.8-10.8)
--- NOTE | 2018-08-30 06:13 | NEPHROLOGY PROGRESS NOTE ---
DATE: 08/29/2018 TIME SEEN: 0650 a.m. SUBJECTIVE: Patient awake, confused. She is asking what happened to the bed. Her daughter is at the bedside, but is asleep and does not arouse to verbal stimuli. OBJECTIVE: Vital Signs: Temperature 97.4 degrees, pulse 93, respiratory rate 28, blood pressure 102/73, intake 1.9 L. Output 225 mL. General: Chronically ill-appearing, elderly female resting in bed. She is confused and slightly anxious. HEENT: Normocephalic, atraumatic. She has temporal wasting. Oral mucosa is dry. Neck: Supple. There is no JVD. Cardiovascular: Regular rate and rhythm. Pulmonary: There was no wheeze or rhonchi. Abdomen: Round, soft, positive bowel sounds. : Not inspected. Extremities: She has 2+ edema up to the hips. Integumentary: Skin is pale, warm, and dry. LAB DATA: WBC of 2.2, hemoglobin 10.0. Sodium 131, potassium 3.9, CO2 16, BUN 103, creatinine 1.5. ASSESSMENT AND PLAN: 1. Acute kidney injury in the setting of the patient with a significantly loss of muscle mass. Again, this patient is not a dialysis candidate and would need to be treated medically. Unfortunately, her BUN has continued to rise. Her creatinine shawn somewhat overnight. Urine output has been declining. Her albumin, at this time, is 2.9. She was dosed with albumin previously. Patient does have worsening ascites, and quite frankly have some prerenal issues at this time secondary to displaced fluid. We will try to assist medically if possible. 2. Metastatic breast cancer with clinical worsening. Followed by primary, Heme/ Onc. 3. Pneumonia. She is on appropriately dosed antibiotics. Current treatment plan: We have no changes to offer. Dictated by CONOR Mitchell for Kaiser Zuniga MD Face to face encounter, data reviewed, discussed with Eben Chaparro on 08/29/18. I agree with the above assessment and plan of care. cc: Kaiser Zuniga MD [facility]
--- NOTE | 2018-08-30 06:35 | PULMONOLOGY PROGRESS NOTE ---
DATE: 08/29/2018 SUBJECTIVE: The patient is arousable, but less alert than yesterday evening. OBJECTIVE: VITAL SIGNS: Blood pressure 101/62. Heart rate 84, respiration rate 24. Oxygen saturation 99% on 2 L. HEENT: Pupils are equal. Oropharynx appears dry. Neck: Is supple. Chest: Reveals shallow breath sounds with decreased breath sounds in the bases. Cardiac: Distant heart sounds. Normal S1, normal S2. Abdomen: Is [id number] distended. Bowel sounds are diminished. Extremities: Reveal 2+ peripheral edema. LABORATORIES: Sodium 131, potassium 3.9, chloride 95, bicarbonate 16, BUN 103, creatinine 1.5. White blood count 2.29, hemoglobin 10.0, platelet count 37,000. Chest x-ray reveals increased bilateral effusions. MRI of the abdomen ordered by Dr. Garcia reveals severe atrophy of the liver compatible with cirrhosis, ascites, hydronephrosis, severe body wall edema. Pancreas could not be identified. IMPRESSION: Unfortunate 73-year-old with metastatic pancreatic cancer, pleural effusions, hypoxemic respiratory failure, renal failure, cirrhosis, massive ascites, sarcopenia, rectal mass with rectovaginal fistula, and declining performance status. Patient's prognosis is dismal. RECOMMENDATIONS: 1. Continue comfort measures. 2. Continue oxygen, cycle BiPAP if needed for comfort. 3. Recommend ongoing end of life discussions with her daughter. The patient is unlikely to leave this hospital. cc: Jeremiah Garcia MD
--- NOTE | 2018-08-30 06:38 | GENERAL SURGERY CONSULTATION ---
DATE: 08/29/2018 SUBJECTIVE: She is admitted to the floor from ICU and she still struggle with mental status, respiratory status remained overall very systemically ill. No fevers. No tachycardia. Systolic blood pressures have been in 90s. Oxygen saturation 100% on 2 L. OBJECTIVE: In general she was quite agitated this morning. She is being cleaned currently. Integument is without jaundice obviously. Neurologically she does seem confused. She has diffuse anasarca. White count 2, hematocrit 30, platelets are 37. Creatinine is 1.5. Sodium is low at 131. I reviewed her recent senior wind energy consultant notes. She has lower extremity DVT. ASSESSMENT AND PLAN: This is a 73-year-old female with metastatic carcinoma, most likely nondiagnosed colon mass as well causing rectovaginal fistula. Clinically she remains very ill. She made it out of the ICU. She is thrombocytopenic and is off heparin currently for bleeding. Given her coagulopathy, I would advise against IVC filter placement at this juncture. This would require invasive procedure. I think she is very tenuous currently clinically. We will follow along. If she were to improve clinically and then tolerate anticoagulation, would consider IVC filter, but would recommend holding off at this juncture. cc: Pdero Jiang MD
[2018-08-30 07:03] LABS: ALB/GLOB RATIO 1.5; ALBUMIN 3.8 g/dL (3.5-5.0); CALCIUM 8.5 mg/dL (8.8-10.2); CREATININE 1.6 mg/dL (0.5-0.9); POTASSIUM 3.9 mmol/L (3.5-5.1); TOTAL BILIRUBIN 0.85 mg/dL (0.20-1.00); TOTAL PROTEIN 6.4 g/dL (6.3-8.3)
[2018-08-30] MEDS: MIRALAX PO SCH ×2 (08:21→20:08)
[2018-08-30] MEDS: CENTRUM SILVER PO SCH (08:21)
[2018-08-30] MEDS: MYCOSTATIN SUSP PO SCH ×4 (08:21→20:08)
[2018-08-30] MEDS: ICAR-C PO SCH ×2 (08:22→20:07)
[2018-08-30] MEDS: METAMUCIL PO SCH (08:22)
[2018-08-30] MEDS: TIMOPTIC 0.5% OPH SOLUTION BOTH EYES SCH (10:18)
[2018-08-30] MEDS: PROTONIX IV SCH ×2 (10:18→21:38)
[2018-08-30] MEDS: ALBUMIN 25% IV SCH (10:18)
[2018-08-30] MEDS: CLINIMIX E 4.25%-5% SOLUTION 1,000 ML IV SCH ×2 (10:21→12:30)
--- NOTE | 2018-08-30 10:32 | Diag Imaging Result Doc PS360 ---
US ABD PARACENTESIS W S/I - 08/30/2018 INDICATION: ascites COMPARISON: MRI from yesterday FINDINGS: The risks and benefits of the procedure were discussed with the patient. All questions were answered. Written and verbal consent was obtained. Ultrasound scanning demonstrated ascites. Overlying skin was prepped and draped in sterile fashion. Anesthesia was achieved with injection of 10 cc 1% lidocaine. The paracentesis catheter was advanced until the return of ascites fluid. 6.1 L was aspirated. The catheter was withdrawn intact. The patient reported no symptoms from the procedure. IMPRESSION: Successful and uncomplicated ultrasound-guided paracentesis. Electronically signed by Aguila Domínguez 08/30/2018 10:30 AM
[2018-08-30 11:31] LABS: BODY FLUID SOURCE PERITONEAL FLUID; MONOS 60 %; POLYS 40 %; WBC BF 32 /cumm
[2018-08-30 12:00] LABS: TOTAL PROT BODY FLUID 2.1 g/dL
[2018-08-30 12:06] LABS: ALBUMIN BODY FLUID 1.2 g/dL; AMYLASE BODY FLUID 9 U/L
--- NOTE | 2018-08-30 15:30 | PROGRESS NOTE ---
DATE: 08/30/2018 SUBJECTIVE: The patient is resting in bed. Sensorium is much improved today. OBJECTIVE: Vital Signs: Temperature 97.7 degrees, pulse 94, respiratory 16, blood pressure 100/60, oxygen saturation is 100%. HEENT: Atraumatic, normocephalic. Cardiovascular: S1, S2. Respiratory: Has evidence of good air entry bilaterally. Abdomen: Soft, nontender, no masses felt. Extremities: Has edema in both lower extremities. Central Nervous System: Is awake, no obvious focal deficits noted. LABS: WBC is 2.31, hematocrit 27.2, with a platelet count of 86,000. Sodium is 138, potassium 3.9, chloride 94, bicarb is 16, BUN is 116, creatinine 1.6. ASSESSMENT AND PLAN: 1. Encephalopathy. Continue to follow the patient's neurologic status. 2. Pneumonia. Continue antibiotics. Maintain patient on oxygen as well as nebulized bronchodilators. 3. DVT in both lower extremities. Heparin discontinued because of GI bleed as well as thrombocytopenia. 4. Gastrointestinal bleed. Continue proton pump inhibitor. Gastroenterology consulted. 5. Metastatic pancreatic cancer. Aware. The patient's oncologist is in [place]. 6. Rectovaginal fistula. Surgery consulted. 7. Advanced directives. Patient is a full code. 8. Gastrointestinal prophylaxis. Proton pump inhibitor. 9. Deep vein thrombosis prophylaxis. Sequential compression devices. cc: Wojciech Alegre MD
--- NOTE | 2018-08-30 17:49 | GASTROENTEROLOGY PROGRESS NOTE ---
DATE: 08/30/2018 SUBJECTIVE: The patient is resting comfortably in bed. Daughter is at bedside. History of pain from daughter. The patient continues to eat very little sips of liquids. She denies any abdominal pain, nausea or vomiting. She had a reported dark green stool yesterday with no obvious blood. OBJECTIVE: Vital signs: Temperature 97.7, heart rate 90, respiratory rate 17 and blood pressure 85/51 with an oxygen saturation of 100% on Venturi mask, 50% oxygen. General: The patient is awake. However, lethargic but arousable. She appears cachectic and malnourished. HEENT: Extraocular motor intact. Dry mucous membranes. Neck: No lymphadenopathy. Cardiac: Regular rate and rhythm. No murmurs. Lungs: Shallow breathing. Decreased breath sounds throughout. Abdomen: Soft and nontender. Nondistended. Normoactive bowel sounds. Unable to appreciate ascites. Extremities: Bilateral 3+ pitting edema all the way up to the thighs with anasarca. Skin: Pale with excoriations on her arms and bruising. Neurological: Moving all extremities symmetrically. Nonfocal. LABORATORY: White count 2.3, hemoglobin 8.9, platelets 86,000 from 37,000 after toilet transfusion. Sodium 130, potassium 3.9, chloride 94, bicarb 16, BUN 116, creatinine 1.6, glucose 143. LFTs are normal. Six liters of ascites were removed during paracentesis today without any evidence of SBP. ASSESSMENT AND PLAN: Ms. Kelsey is a 73-year-old woman with unresectable metastatic pancreatic cancer with peritoneal carcinomatosis and ascites complicated by bowel obstruction. She has a history of diverting gastrojejunostomy. She is currently followed by [facility] in [place] and chemotherapy that was intended to start in early August has been postponed given her recent illness. Ascites. Status post diagnostic and therapeutic paracentesis today with significant improvement in respiratory status and abdominal discomfort. Pneumonia. Currently being treated by pulmonary team. She is on antibiotics. Pulmonary edema. She was given albumin and Lasix which were discontinued today. It is doubtful that Lasix will improve her ascites given her carcinomatosis. Anemia. The patient had rectal bleeding. Photos shown to me by daughter appeared to reveal melanic stool from when she was initially admitted to the hospital in [place]. Daughter denies any recurrence of melena at this time. Her hemoglobin has been stable since her last transfusion. Her hemoglobin has been downtrending since her last transfusion on August 27. We will continue to keep her on PPI and avoid blood thinners. She is currently at high risk for endoscopic procedures given her declining clinical status. Malnutrition. She is currently on ClindaMax. Constipation. Continue MiraLAX and Metamucil. Hemorrhoids and question rectovaginal fistula. The patient is currently not having any bright red blood per rectum. The above plan was discussed with the patient and family at bedside. All questions were answered. Please call for any questions or concerns.
--- NOTE | 2018-08-31 01:14 | NEPHROLOGY PROGRESS NOTE ---
DATE: 08/30/2018 SUBJECTIVE: She is awake, and nods to me. Her daughter does most of the talking. She had a large volume paracentesis. Still requiring supplemental oxygen, 100% by mask. OBJECTIVE: Vital Signs: Blood pressure 85/51, heart rate 70 respirations 17. General: Frail. No acute distress. Skin: Warm and dry. Pale. Heart: Regular. Neck: Neck veins are distended. Lungs: Equal, clear. Abdomen: Flat, soft. Bowel sounds present. Extremities: With trace to 1+ edema. IMPRESSION: Prerenal azotemia. Multifactorial. Continue IV albumin. Stop Lasix. Otherwise, continue IV nutrition. No changes. cc: Kaiser Zuniga MD
[2018-08-31] MEDS: CARAFATE LIQUID PO SCH ×4 (02:03→22:44)
[2018-08-31] MEDS: HUMULIN R SUBQ SCH ×4 (03:20→15:58)
[2018-08-31] MEDS: ZYVOX 600 MG/D5W 600 MG/300 ML IVPB IV SCH (03:20)
[2018-08-31] MEDS: MERREM 500 MG in NS 50 ML IV SCH ×3 (05:11→22:44)
[2018-08-31 05:17] LABS: HEMATOCRIT 26.2 % (37.0-47.0); HEMOGLOBIN 8.6 g/dL (12.0-16.0); MCH 27.7 PG (27-31); MCHC 32.8 g/dL (33-37); MCV 84.2 FL (81-99); MPV 11.5 FL (7.4-10.4); RBC 3.11 XMIL (4.2-5.4); RDW 17.8 % (11.5-14.5); WBC 1.83 X1000 (4.8-10.8)
[2018-08-31 05:56] LABS: ALLEN TEST YES; BE -9.3 mmoll (-3.0-3.0); BLOOD TYPE ARTERIAL; HCO3-(ACT) 17.7 mmoll (20.0-26.0); METHB 1.5 % (0.0-1.5); O2(CT) 14.5 mL/dL (15.0-23.0); O2HB 97.1 % (95.0-99.0); PCO2(98.6) 33 mmHg (35-45); PO2(98.6) 188 mmHg (60-100); SAMPLE BLOOD; SAO2 99.5 % (95.0-100.0); THB 10.3 g/dL (11.5-17.4)
[2018-08-31 05:57] LABS: MODALITY VENTIMASK
[2018-08-31] MEDS: PROTONIX IV SCH (07:34)
[2018-08-31 07:57] LABS: ALB/GLOB RATIO 1.5; ALBUMIN 3.3 g/dL (3.5-5.0); CALCIUM 7.7 mg/dL (8.8-10.2); CREATININE 1.5 mg/dL (0.5-0.9); POTASSIUM 3.8 mmol/L (3.5-5.1); TOTAL BILIRUBIN 0.57 mg/dL (0.20-1.00); TOTAL PROTEIN 5.5 g/dL (6.3-8.3)
[2018-08-31] MEDS: CLINIMIX E 4.25%-5% SOLUTION 1,000 ML IV SCH (08:16)
--- NOTE | 2018-08-31 08:24 | Diag Imaging Result Doc PS360 ---
EXAM: CHEST-1 VIEW INDICATION: SOB TECHNIQUE: One view COMPARISON: 08/29/2018 FINDINGS: Right PICC line is in stable position. The central and bibasilar infiltrates appear to have worsened marginally likely representing pulmonary edema +/- pneumonia. There are small pleural effusions that have likely increased in size. No other new consolidations are identified. Cardiac silhouette is stable. IMPRESSION: Slight worsening as detailed above. Electronically signed by Markell Loving 08/31/2018 8:22 AM
[2018-08-31] MEDS: TIMOPTIC 0.5% OPH SOLUTION BOTH EYES SCH (09:34)
[2018-08-31] MEDS: ALBUMIN 25% IV SCH (09:34)
[2018-08-31] MEDS: MIRALAX PO SCH ×2 (09:44→22:43)
[2018-08-31] MEDS: METAMUCIL PO SCH (09:44)
[2018-08-31] MEDS: MYCOSTATIN SUSP PO SCH ×3 (09:44→16:33)
[2018-08-31] MEDS: ICAR-C PO SCH ×2 (09:44→22:44)
[2018-08-31] MEDS: CENTRUM SILVER PO SCH (09:44)
[2018-08-31] MEDS: MORPHINE IV PRN (14:11)
--- NOTE | 2018-08-31 14:36 | PROGRESS NOTE ---
DATE: 08/31/2018 SUBJECTIVE: This morning I spent over an hour with the daughter for Ms Hatch. She keeps giving a lot of information some very coherent, some extremely incoherent, she has a lot of concerns and a lot of complaints as well but the patient herself was extremely calm. She says she was feeling fine. OBJECTIVE: Vital signs: Blood pressure is 84/51, pulse is 84, respiration is 18, temperature 97.5 degrees. General: Ms. Hatch is a 73-year-old female who is in bed, did not seems to be in any cardiopulmonary distress. Mucosa is pink and moist. Anicteric, acyanotic. Neck: Supple. Chest: Air entry was bilateral reduced. There is crepitations in both lungs. Cardiovascular: Regular rate and rhythm. No murmurs, no rubs, no gallops. Abdomen: Was soft. There is a lot of edema around the abdominal wall, there is also some nodularity on the right midabdomen from previous surgery. Extremities: About 3+ pedal edema. [employer]PER[employer]OR [employer] NURSING: Patient was awake, alert, follows basic commands. LABORATORY DATA: Has been reviewed, WBC is down to 1.82, hemoglobin is 8.6, platelet count is 46,000. Chemistry is also reviewed, sodium is 129, potassium is 3.8, chloride is 94, bicarb is 15, patient has a BUN of 113, creatinine is 1.5. IMAGING STUDIES: A chest x-ray this morning shows slight worsening of the pulmonary edema. MEDICATIONS: Have been reviewed. Patient was on Zyvox which I have discontinued because of continued worsening of patient CBC numbers. ASSESSMENT: 1. Altered mental status due to global encephalopathy seems to be improved. 2. Enterobacter cloaca species pneumonia, patient was on a combination of meropenem and Zyvox, I have discontinued the Zyvox, will continue currently on the meropenem. 3. There is no indication of any methicillin-resistant Staphylococcus aureus so I have discontinue the MRSA coverage and patient continues to have decline in her CBC numbers . 4. Pancytopenia. I think this is multifactorial including medication induced as well as effect of acute critical illness and probably bone marrow suppression effect from patient underlying malignancy as well as cirrhosis. We will discontinue the Zyvox which has potential to cause pancytopenia and continue observing the numbers . 5. Extensive bilateral lower extremity deep vein thrombosis. I think this is all related to the underlying pancreatic malignancy. 6. Generalized weakness and deconditioning. 7. Severe right hydroureteronephrosis secondary to extrinsic compression from the cancer. 8. History of rectal vaginal bleed. 9. Advanced metastatic pancreatic cancer. 10. Cirrhosis of the liver of unclear etiology. 11. Ascites with SAG more than 1.1 consistent with portal hypertension as the possible physiological mechanism for the ascites. 12. Protein calorie malnutrition, prealbumin was 3.5, patient is on intravenous Clinimix. PLAN: So in general Ms. Hatch is still full code, she is extremely critical and I think all is kind of related to her advanced metastatic pancreatic cancer. The daughter however does not seems to be on that page. We going to continue with the care as it is and I will continue engaging her on a daily dialogue. She keeps bringing up the fact that Dr. Donovan who is the oncologist in the [facility] in [place] keeps giving her certain orientations so I was asking her if Dr. Donovan is willing for us to transfer the patient to [place] so he would have a 1 on 1 daily evaluation of this patient, I am hoping to hear from her on that regard. cc: Quinton Lucero MD
--- NOTE | 2018-08-31 15:51 | NEPHROLOGY PROGRESS NOTE ---
DATE: 08/31/2018 SUBJECTIVE: She is awake. Very weak. She has difficulty understanding me or communicating with me. Daughter denies any new symptoms. OBJECTIVE: Blood pressure 84/51, heart rate 84, respiratory rate 18 and afebrile. Intake 1 L, output 600 mL. General: No acute distress. Skin: Warm and dry. HEENT: Oropharynx is dry. Neck: Neck veins are not visible. Heart: Regular. No gallops. Lungs: Equal. No crackles. Rhonchi are present. Abdomen: Soft, flat and nontender. Bowel sounds are present. Extremities: 2+ edema. No clubbing or cyanosis. IMPRESSION: Acute kidney injury. Labs are roughly stable over the last 48 hours. Urine output is low but adequate. No changes are required. cc: Kaiser Zuniga MD
[2018-09-01] MEDS: PROTONIX IV SCH ×2 (00:40→09:06)
[2018-09-01] MEDS: MYCOSTATIN SUSP PO SCH ×5 (00:40→21:03)
--- NOTE | 2018-09-01 00:59 | GASTROENTEROLOGY PROGRESS NOTE ---
DATE: 08/31/2018 SUBJECTIVE: The patient is resting in bed. Her daughter present at bedside. The patient is slightly more awake today. She had some liquid dark stools today. No nausea or vomiting reported. She continues to have poor oral intake. OBJECTIVE: Vital Signs: Temperature 97.3 degrees, pulse rate of 87, respiratory rate 25, blood pressure 92/54, saturating 100% on Ventimask 15 L/minute. General appearance: This is a thin female lying in bed, in no acute distress. HEENT: Pale conjunctivae. No icterus. Face mask in place. Neck: Supple. Abdomen: Softer than before. No guarding. Extremities: No cyanosis or clubbing. Neurologic: She was awake and was able to answer simple questions. LABORATORIES: Hemoglobin is 8.6, hematocrit is 26.2, white count of 1.83, platelet count of 46,000. ABG showing a pH of 7.3, pCO2 of 33, pO2 of 188; this is on Ventimask at 50% FiO2. Sodium 129, potassium 3.8, chloride 94, bicarb of 15, anion gap of 20, BUN of 113, creatinine 1.5, glucose of 162, calcium 7.7. Total bilirubin is 0.57, AST 21, ALT 7, alkaline phosphatase 60, total protein 5.5, albumin of 3.3. ProBNP 29,818. The ascitic fluid showed white cells 32, polymorphic 40%, and amylase of 9, albumin of 1.2. IMAGING STUDIES: Chest x-ray showed slight worsening in the central and bibasilar infiltrates, likely pulmonary edema plus/minus pneumonia. No new consolidations identified. Right-sided PICC line in good position. IMPRESSION AND PLAN: 1. Ascites, likely secondary to peritoneal carcinomatosis from pancreatic adenocarcinoma. Her abdomen is less distended post paracentesis; 6.1 L was removed. The peritoneal fluid showed no growth of any bacteria. 2. Malnutrition. She currently is on Clinimix. The patient's daughter has had success with Instant [place] Breakfast so we will advance diet to full liquid diet. 3. Anemia. Continue to watch for now. Transfuse as needed. 4. Encephalopathy. Seems to be improving. 5. Enterobacter cloacae species pneumonia. Continues on antibiotics with meropenem. 6. Pancytopenia per the primary care team. 7. Melena. Continue to watch for now and transfuse as needed. We will continue PPIs b.i.d. 8. Cirrhosis of unclear etiology. This is based on the MRI of the abdomen which showed severe atrophy of the liver compatible with liver cirrhosis and severe ascites. We will check acute hepatitis panel, GABRIELA level. 9. Extensive bilateral lower extremity edema and deep vein thromboses. Aware. 10. Ascites with serum ascites albumin gradient more than 1.1, likely from portal hypertension, and the patient has a known history of peritoneal carcinomatosis. 11. Above was discussed with the patient and family and all questions answered. Please call us with any further questions. cc: MD Quinton Melgar MD MTDVladislav
[2018-09-01] MEDS: HUMULIN R SUBQ SCH ×7 (01:26→21:03)
[2018-09-01] MEDS: CARAFATE LIQUID PO SCH ×4 (03:03→21:03)
[2018-09-01] MEDS: CLINIMIX E 4.25%-5% SOLUTION 1,000 ML IV SCH (05:44)
[2018-09-01] MEDS: MERREM 500 MG in NS 50 ML IV SCH (05:44)
[2018-09-01 06:18] LABS: HEMATOCRIT 25.2 % (37.0-47.0); HEMOGLOBIN 8.3 g/dL (12.0-16.0); MCH 27.9 PG (27-31); MCHC 32.9 g/dL (33-37); MCV 84.8 FL (81-99); MPV 11.5 FL (7.4-10.4); RBC 2.97 XMIL (4.2-5.4); WBC 1.06 X1000 (4.8-10.8)
[2018-09-01 06:20] LABS: PLT 32 X1000 (130-400)
[2018-09-01 06:35] LABS: ALB/GLOB RATIO 1.6; ALBUMIN 3.5 g/dL (3.5-5.0); CALCIUM 7.9 mg/dL (8.8-10.2); CREATININE 1.4 mg/dL (0.5-0.9); POTASSIUM 3.7 mmol/L (3.5-5.1); TOTAL BILIRUBIN 0.68 mg/dL (0.20-1.00); TOTAL PROTEIN 5.7 g/dL (6.3-8.3)
[2018-09-01 07:24] LABS: LYMPHS 24 % (21-51); MONO 4 % (1-9); SEGS 72 % (42-75)
[2018-09-01 07:25] LABS: SCHISTOCYTES OCCASIONAL
--- NOTE | 2018-09-01 08:15 | Diag Imaging Result Doc PS360 ---
EXAM: CHEST-PORTABLE INDICATION: dyspnea TECHNIQUE: One view COMPARISON: 08/31/2018 FINDINGS: Right PICC line is in stable position. Central and basilar infiltrates are stable to marginally improved. No new consolidation is identified. Cardiac silhouette is stable. IMPRESSION: Stable to marginal improvement. Electronically signed by Markell Loving 09/01/2018 8:13 AM
[2018-09-01 08:32] LABS: INR 1.39; PROTIME 18.2 Seconds (11.0-16.0)
[2018-09-01 09:03] LABS: D-DIMER 4.11 ug/mLFEU (0.0-0.52)
[2018-09-01] MEDS: MIRALAX PO SCH ×2 (09:06→21:03)
[2018-09-01] MEDS: ICAR-C PO SCH ×2 (09:06→21:03)
[2018-09-01] MEDS: METAMUCIL PO SCH (09:06)
[2018-09-01] MEDS: CENTRUM SILVER PO SCH (09:06)
[2018-09-01] MEDS: TIMOPTIC 0.5% OPH SOLUTION BOTH EYES SCH (09:17)
--- NOTE | 2018-09-01 10:42 | GASTROENTEROLOGY PROGRESS NOTE ---
DATE: 09/01/2018 SUBJECTIVE: The patient is resting in bed. She is more awake today. She was able to answer some of my questions. Her daughter was present at bedside, but she is currently sleeping. According to the records, the patient was afebrile last night. She had soft, liquid, brown stools. OBJECTIVE: Vital Signs: Temperature 97.3 degrees, pulse of 95, respiratory rate 18, blood pressure 94/62, saturating 100% on Ventimask, 15 L flow of oxygen. General Appearance: Thinly built, lying in bed. HEENT: Pale conjunctiva. No icterus. Face mask in place. Neck: Supple. Abdomen: Softer. No guarding no rebound. Extremities: No cyanosis or clubbing. Neurologic: She was awake and answering questions. IMAGING AND LABORATORY DATA: Hemoglobin and hematocrit are 8.3 and 25.2, white count 1.06, platelet count of 32,000. INR 1.39, PT of 18.2. Sodium 133, potassium 3.7, chloride of 98, bicarb of 15, anion gap of 20, BUN of 113, creatinine is 1.4, glucose of 137, calcium 7.9. AST 18, ALT 7, alkaline phosphatase 62, total protein is 5.7, albumin of 3.5. Peritoneal fluid showing no growth on aerobic and anaerobic culture. Urine culture showing yeast. Chest x-ray done this morning showed [id number] improvement. No new consolidation. IMPRESSION AND PLAN: 1. Pancreatic adenocarcinoma with peritoneal carcinomatosis. She is continuing treatment at [facility] in [place]. 2. Ascites is better after paracentesis. The fluid cultures have been negative. 3. Cirrhosis per the imaging. We will follow up on the hepatitis panel and GABRIELA levels. 4. Pancytopenia. Hematology is on board. 5. Malnutrition. She is on Clinimix. We may have to consider her for total parenteral nutrition if she continues to have poor oral intake. 6. Anemia. Continue to watch closely. Transfuse as needed. Continue Iron-C twice daily and multivitamin once daily. 7. Melena with positive Hemoccult. She will continue on Protonix and Carafate. 8. History of constipation. She will continue on MiraLAX twice daily and Metamucil once daily. She is moving her bowels. 9. Extensive bilateral lower extremity edema and deep vein thrombosis. Aware. Her heparin was stopped because of gastrointestinal bleeding. 10. Enterobacter cloacae species pneumonia. She is on meropenem. 11. Encephalopathy is improving. The above plans were discussed with the patient, and all questions were answered. Please call us with any further questions. cc: MD Quinton Melgar MD Heather Shah, MD
--- NOTE | 2018-09-01 13:01 | PROGRESS NOTE ---
DATE: 09/01/2018 SUBJECTIVE: Ms. Hatch refers to be doing fairly okay. She is generalized just weak and debilitated. She speaks in a very feeble voice. She says she just wants to go home. The daughter was in the room but she was sleeping, so she did not participate in the encounter. OBJECTIVE: Vital signs: Blood pressure is 98/60, pulse 111, respirations 20, temperature 97.3 degrees. The patient was saturating 100% on face mask. General: Ms. Hatch is a 73-year-old female. She is in bed. She looks emaciated and cachectic. HEENT: Mucosa is pink and moist. Anicteric. Acyanotic. Neck: Supple. Chest: Air entry was bilaterally reduced. There are some crackles posteriorly. Cardiovascular: Regular rate and rhythm. No murmurs. No rubs. No gallops. GI: Abdomen is soft, slightly distended. There is edema around the abdominal wall. There is some nodularity on the left mid abdomen from previous surgeries. Extremities: About 3+ pedal edema. 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 Speaks in a very slow, feeble voice, but she does understand and follows basic commands. LABORATORY DATA: WBC is 1.06, hemoglobin is 8.3, platelet count of 32,000. The patient's PT is 18.2, INR is 1.39. Fibrinogen is down to 211 with D-dimer 4.11. Sodium is 133 , potassium is 3.7, chloride is 97, bicarb is 15, BUN is up to 113 just as of yesterday, and creatinine is 1.4. So far the patient's blood cultures have all been negative. The peritoneal fluid culture is also negative. Patient's I's and O's, urine output was 1,200. The patient is still positive balance of about 31,000. CURRENT MEDICATIONS: 1. Clinimix at 45 mL/h. 2. Insulin sliding scale. 3. Ativan 1 mg q.6 hours p.r.n. 4. Meropenem 500 q.8. This was started on 08/14/2017 so today is 18 days, so I will go ahead and discontinue that as well. 5. Nystatin. 6. Pantoprazole. 7. Carafate. ASSESSMENT: 1. Altered mental status on presentation secondary to global encephalopathy, improved. 2. Enterobacter cloacae pneumonia. Patient was on Zyvox and meropenem. Meropenem has been going for 18 days. Zyvox was discontinued yesterday. I think patient has completed a course of antibiotics so I have discontinued the meropenem today as well. 3. Pancytopenia with elements of peripheral destruction. The patient is remarkably thrombocytopenic and anemic and also white blood cell count is low. I think it is kind of multifactorial in etiology including the possibility of drug-induced cirrhosis, malignancy, but I also think patient is doing DIC as a result of the underlying pancreatic malignancy. The patient has evidence of microangiopathic anemia which would all be indicative of the ongoing DIC. 4. Extensive bilateral lower extremity deep vein thrombosis. Unfortunately, the patient cannot be anticoagulated because of GI bleed and also because of severe low platelet count. Surgery has been consulted for IVC filter and she is not a candidate either. 5. Severe right hydroureteronephrosis secondary to extrinsic compression from the pancreatic cancer. 6. Rectovaginal bleed. 7. Advanced metastatic pancreatic cancer. Patient follows up with Dr. Donovan in [facility]. 8. Cirrhosis of the liver. Etiology is unclear. 9. Ascites with serum ascites albumin gradient more than 1.1 consistent with portal hypertension as a result of the cirrhosis. 10. Severe protein calorie malnutrition with prealbumin of 3.5. The patient is currently on IV Clinimix and also getting other nutritional supplements. 11. Poor performance status with cachexia and generalized weakness and deconditioning, all associated with the underlying malignancy. 12. Acute kidney injury. Patient is being followed up by Nephrology. PLAN: So in general, Ms. Hatch does have metastatic advanced pancreatic cancer with a lot of complications including DIC. On top of that, she is having also blood clotting which is very characteristic of pancreatic cancer. She also has hydroureteronephrosis and her general performance status is extremely poor. I think Ms. Hatch does need some form of palliative care and hospice services. However, the daughter is extremely adamant of full care. For now we are going to continue managing the fluid overload with the albumin and some Lasix. I have discontinued the antibiotics since she has completed over 14 days of this. We will continue with further recommendations from all the subspecialties that have seen Ms. Hatch. Ms Hatch is a very complicated case with unfortunately a poor prognosis. cc: Quinton Lucero MD MTDD
[2018-09-02] MEDS: HUMULIN R SUBQ SCH ×6 (03:59→20:30)
[2018-09-02] MEDS: CARAFATE LIQUID PO SCH ×4 (04:00→20:30)
[2018-09-02 06:28] LABS: ALB/GLOB RATIO 1.6; ALBUMIN 3.2 g/dL (3.5-5.0); CALCIUM 8.2 mg/dL (8.8-10.2); CREATININE 1.1 mg/dL (0.5-0.9); POTASSIUM 3.4 mmol/L (3.5-5.1); TOTAL BILIRUBIN 0.75 mg/dL (0.20-1.00); TOTAL PROTEIN 5.2 g/dL (6.3-8.3)
[2018-09-02] MEDS: CLINIMIX E 4.25%-5% SOLUTION 1,000 ML IV SCH ×2 (06:43→07:10)
[2018-09-02 06:51] LABS: HEMATOCRIT 22.9 % (37.0-47.0); HEMOGLOBIN 7.7 g/dL (12.0-16.0); MCH 28.1 PG (27-31); MCHC 33.6 g/dL (33-37); MCV 83.6 FL (81-99); MPV 12.9 FL (7.4-10.4); RBC 2.74 XMIL (4.2-5.4); RDW 17.9 % (11.5-14.5); WBC 1.09 X1000 (4.8-10.8)
[2018-09-02] MEDS: PROTONIX IV SCH (09:02)
[2018-09-02] MEDS: METAMUCIL PO SCH (09:02)
[2018-09-02] MEDS: MIRALAX PO SCH ×3 (09:03→20:31)
[2018-09-02] MEDS: ICAR-C PO SCH ×2 (09:03→20:30)
[2018-09-02] MEDS: CENTRUM SILVER PO SCH (09:03)
[2018-09-02] MEDS: MYCOSTATIN SUSP PO SCH ×4 (09:03→20:31)
--- NOTE | 2018-09-02 10:50 | GASTROENTEROLOGY PROGRESS NOTE ---
DATE: 08/24/2018 SUBJECTIVE: The patient is resting in bed. She is sleeping and relaxed. She continues to have poor oral intake. She is having soft brown stools. PHYSICAL EXAMINATION: Vital Signs: Temperature 97.6, pulse rate of 99, respiratory rate of 36, blood pressure 92/58, saturating 100% on Ventimask 15 L. General Appearance: Thinly built, lying in bed, currently tachypneic. HEENT: Positive pallor. No icterus. Face mask in place. Neck: Supple. Abdomen: Soft, nondistended. No guarding noted. Extremities: Bilateral lower extremity edema noted. Neurologic: She is awake, alert, and answers simple questions. LABORATORY DATA: Her hemoglobin and hematocrit are 7.7 and 22.9, white count 1.09, platelet count of 52,000. Her sodium is 138, potassium 3.4, chloride 101, bicarb of 18, anion gap 19, BUN of 109, creatinine 1.1, glucose of 150, calcium is 8.2. Total bilirubin is 0.75, AST 14, ALT 8, alkaline phosphatase 68, total protein is 5.2, albumin 3.2. IMPRESSION AND PLAN: 1. Gastrointestinal bleed. The patient is having soft brown stools. No plans of endoscopic intervention at this moment as the patient is in respiratory distress and failure. 2. Respiratory failure. This is being managed by the primary care team. 3. Anemia. Continue to watch and transfuse as needed. 4. Malnutrition. She is on Clinimix. May have to start her on total parenteral nutrition. I will leave to the discretion of the primary care team. 5. Pancreatic adenocarcinoma. She is being managed by the oncology team. 6. Pancytopenia. This is being managed by the oncology team. 7. Question of rectovaginal fistula. Surgery is on board. 8. History of constipation. She is on MiraLAX and Metamucil. 9. Encephalopathy, being managed by the primary care team. 10. Enterobacter cloacae pneumonia. She is on broad-spectrum antibiotics with meropenem. 11. Cirrhosis of the liver. We are doing a workup. The labs are currently pending. 12. Gastrointestinal prophylaxis with proton pump inhibitors. 13. The above plan was discussed with the patient's nurse and all questions were answered. Please call us with any questions. cc: MD Fady Melgar
[2018-09-02 10:53] LABS: HEPATITIS PROFILE ACUTE SEE COMMENTS
--- NOTE | 2018-09-02 11:33 | PROGRESS NOTE ---
DATE: 09/02/2018 SUBJECTIVE: This morning, Ms. Hatch refers to be doing fairly the same. Every now and then, she will show out, she says she is hurting everywhere. The daughter was at the bedside at the time of the encounter. OBJECTIVE: Vital signs: Blood pressure is 98/58. MAP is 67, pulse is 99, respiration is 36, temperature 97.6 degrees. General: Ms. Hatch is a 73-year-old female. She is in bed. She is not in any cardiopulmonary distress. Mucosa: [place], anicteric, acyanotic. Neck: Supple. I did not see any JVD. Chest: Air entry is bilaterally reduced. There is diffuse posterior crackles bilaterally. Cardiovascular: Regular rate and rhythm. I did not hear any murmurs, or rubs, or gallops. GI: Abdomen was Soft, distended. Bowel sounds were present, but hypoactive. There is edema around the entire abdominal wall up to the back. Extremities: About 3+ pedal edema. BOW STAPLER: Patient is awake, alert, was more forceful in her voice today. She kept saying that she was hurting, and she also kept saying she wanted to go home. LABORATORY DATA: WBC is 1.09, hemoglobin is 7.7, platelet count of 52,000. Sodium is 138, potassium is 3.4, chloride is 101, bicarb is 18, creatinine is down to 1.1. No imaging studies today. PATIENT MEDICATIONS: Have been reviewed. He is currently on insulin sliding scale, vitamin C, lorazepam p.r.n., morphine 2 mg IV q.8 q.4h p.r.n., pantoprazole 40 mg IV daily , Metamucil, and Carafate. ASSESSMENT: 1. Altered mental status on presentation secondary to metabolic encephalopathy is completely improved. Sodium, which was 170 on admission, has normalized. 2. Enterobacter cloacae pneumonia. The patient has been treated adequately for over 18 days of intravenous antibiotics. Subsequent chest x-ray does not show any consolidations. We have discontinued the antibiotics. 3. Pancytopenia with element consistent of peripheral destruction. There is a high suspicion of disseminated intravascular coagulation. 4. Extensive bilateral lower extremity deep vein thrombosis. Unfortunately, patient cannot be anticoagulated because of life-threatening gastrointestinal bleed ( rectovaginal bleed). Surgery has been consulted previously for IVC filter. However, patient has been deemed nonsurgical candidate. 5. Severe right hydroureteronephrosis secondary to extrinsic compression from the pancreatic cancer noted. 6. Rectovaginal bleed, stable. 7. Ascites, status post paracentesis. 6.1 L was removed on 08/30/2018. Fluid analysis is consistent with portal hypertension, pathophysiology. The patient also has remarkable lymphocytic predominant, and I will not be surprised if there is some malignancy component to it. 8. 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 The patient follows up with Dr. Martins in [facility]. I have tried to reach out to him today at [phone] and nobody, according to the tractor crane operator, (Ms. Tabares), nobody has responded from their group. I am still awaiting for a call from them. 9. Cirrhosis of the liver on imaging, unclear etiology. 10. Severe protein calorie malnutrition with prealbumin of 3.5. The patient was on IV Clinimix. However, because of fluid status, we have discontinued that today. Patient is tolerating some milkshakes. 11. Acute kidney injury. Creatinine is improving, and patient is making adequate urine. Nephrology has signed off. 12. Poor performance status with cachexia and generalized weakness and deconditioning all secondary to underlying malignancy. 13. Disseminated intravascular coagulation likely due to the underlying malignancy. We are going to continue observing and transfuse when needed. So in general, Ms. Hatch has been in hospital for 20 days. Initially, got admitted because of altered mental status, severe dehydration, poor nutritional status, was admitted to the ICU, intubated, and on pressors for some time. The patient has gradually been off pressors, has been extubated, and she seems to be medically kind of stable. She has been treated extensively for sepsis with antibiotics and yesterday, we discontinued that because there is no further evidence of ongoing infection. I think patient has reached the maximum benefit that she would derive from hospital stay. She definitely needs some form of medical/nursing care. However, I do not think she needs to be acute in acute hospital setting. I have discussed this with the daughter. I have discontinued the IV fluids because the patient continues to be fluid overload, and I think the IV Clinimix is just adding more to the fluid issues. I have encouraged the daughter and the patient herself to continue drinking the milkshake. For now, I think that is all that we can potentially do. She is medically stable. I am waiting to hear from her oncologist in [place] to see if he would accept her there as a transfer or he would have arrangements to do any further therapy at home. Ms. Hatch still has a Greer catheter, which I think she still needs, so we will continue with that. There was an incident yesterday, whereby I understand the daughter had a recording camera in the room. This morning, she told me that was there because she left the room, and she just wanted to hear her whenever she had any complaints. In any case, I think security and hospital administration have been notified about this, and they are looking into that. cc: Quinton Lucero MD MTDD
[2018-09-02] MEDS: TIMOPTIC 0.5% OPH SOLUTION BOTH EYES SCH (11:40)
--- NOTE | 2018-09-02 12:57 | NEPHROLOGY PROGRESS NOTE ---
DATE: 09/02/2018 TIME SEEN: 0825. SUBJECTIVE: Ms. Hatch is currently resting quietly in bed. She states that she feels like she is falling, though her rails are open and she is in the middle of her bed with the head of the bed elevated. OBJECTIVE: Vital Signs: The patient's most recent vital signs, her last temperature 97.6 degrees, blood pressure 98/58, heart rate 99, respirations 36. She is on O2 supplementation. Last recorded saturation is 98%. She has had 802 in, 1700 out. Labs: Sodium 138, potassium 3.4, chloride 101, CO2 18, BUN 109, creatinine 1.1, glucose 150. White count 1.09, hemoglobin 7.7, hematocrit 22.9, with a platelet count of 52,000. PHYSICAL EXAMINATION: General: This is a 73-year-old, elderly female who appears older than her stated age. She appears chronically ill, though no acute distress. Skin: Warm and dry. HEENT: Normocephalic, atraumatic. Conjunctivae pale pink. Mucous membranes are dry. Neck: Supple. Trachea midline. No evidence of JVD. Cardiovascular: She is regular rate and rhythm. S4 is present. Lungs: Clear to auscultation bilaterally. Equal excursion. On O2. Abdomen: Soft, nontender. Positive bowel sounds. Genitourinary: Not inspected. Greer catheter is in place. Extremities: Have 1+ edema. Neurological: As above. ASSESSMENT AND PLAN: Acute kidney injury. Her labs have remained mostly stable. Her kidney function has been optimized. Given her medical condition, there is nothing further that we feel we can contribute to her care. We will sign off at this time and remain available if indicated. I would like to thank you for allowing us to follow with this patient. Dictated by CONOR Jacobs for Kaiser Zuniga MD Face to face encounter, data reviewed, discussed with Maria Esther Cortes on 09/02/18. I agree with the above assessment and plan of care. cc: CONOR Jacobs MD [facility]
[2018-09-02] MEDS: MORPHINE IV PRN (13:37)
[2018-09-02] MEDS ORDERED: D50W SYRINGE ONE (20:16)
[2018-09-02] MEDS ORDERED: D50W SYRINGE IV ONE (20:33)
--- NOTE | 2018-09-02 21:30 | PULMONOLOGY PROGRESS NOTE ---
DATE: 09/02/2018 SUBJECTIVE: The patient is awake and alert. She currently denies pain. She repeatedly indicates "all I want to do is get some sleep, I haven't slept in 7 days." OBJECTIVE: The patient has been afebrile for the last 24 hours. Blood pressure has been marginal, oxygen saturation 100% on Venturi mask.HEENT: Pupils are equal and reactive. Oropharynx is clear with evidence of weight loss. The dentures are poorly fitting. Bitemporal wasting noted. Neck: Is supple. Chest: Reveals decreased breath sounds in the lung bases. Cardiac: S1 and S2. Abdomen: Is softer following paracentesis. Extremities: Reveal chronic lower extremity swelling associated with deep vein thrombosis. LABORATORIES: White blood count 1.09, hemoglobin 7.7, platelet count 52,000. Sodium 138, potassium 3.4, chloride 101, bicarbonate 18, BUN 109, creatinine 1.1. Chest x-ray yesterday revealed bibasilar infiltrates, generous cardiac silhouette, slight decrease in central vascular congestion. IMPRESSION: 73-year-old with metastatic pancreatic cancer, pleural effusions, hypoxemic respiratory failure, acute renal failure, cirrhosis, ascites, sarcopenia, rectal mass with rectovaginal fistula who has been essentially bedbound during her entire hospital stay with a palliative performance status of 20%. Patient's prognosis is extremely poor. Her daughter continues to push for aggressive care. RECOMMENDATION: 1. Continue oxygen as needed and may cycle with BiPAP as needed for comfort. 2. Ongoing end of life discussions with the daughter. Dr. Lucero is attempting to have her transferred to [facility]. cc: Jeremiah Garcia MD
[2018-09-03] MEDS ORDERED: NS 500 ML IV ONE ×2 (00:27→04:16)
[2018-09-03 00:49] LABS: ALLEN TEST YES; BE -3.2 mmoll (-3.0-3.0); BLOOD TYPE ARTERIAL; HCO3-(ACT) 22.4 mmoll (20.0-26.0); METHB 1.2 % (0.0-1.5); O2(CT) 11.9 mL/dL (15.0-23.0); O2HB 96.5 % (95.0-99.0); PCO2(98.6) 30 mmHg (35-45); PO2(98.6) 108 mmHg (60-100); SAMPLE BLOOD; SAO2 99.2 % (95.0-100.0); THB 8.6 g/dL (11.5-17.4); pH(98.6) 7.44 (7.35-7.45)
[2018-09-03 00:50] LABS: MODALITY CANNULA
[2018-09-03] MEDS: CARAFATE LIQUID PO SCH ×4 (01:26→21:20)
[2018-09-03] MEDS ORDERED: SOLU-CORTEF IV ONE (05:48)
[2018-09-03 06:25] LABS: AGAP 16; ALB/GLOB RATIO 1.1; ALBUMIN 2.8 g/dL (3.5-5.0); ALKALINE PHOSPHATASE 72 U/L (32-104); BUN 97 mg/dL (8-22); CALCIUM 8.5 mg/dL (8.8-10.2); CHLORIDE 107 mmol/L (98-107); COSMO 315; CREATININE 0.9 mg/dL (0.5-0.9); ESTIMATED GFR > 60; GLUCOSE 131 mg/dL (70-104); GOT 13 U/L (10-30); GPT 8 U/L (10-36); POTASSIUM 2.8 mmol/L (3.5-5.1); SODIUM 142 mmol/L (136-145); TCO2 19 mmol/L (25-35); TOTAL BILIRUBIN 0.82 mg/dL (0.20-1.00); TOTAL PROTEIN 5.3 g/dL (6.3-8.3)
[2018-09-03 06:50] LABS: HEMOGLOBIN 7.8 g/dL (12.0-16.0); MCH 27.1 PG (27-31); MCHC 32.5 g/dL (33-37); MCV 83.3 FL (81-99); MPV 11.4 FL (7.4-10.4); RBC 2.88 XMIL (4.2-5.4); WBC 1.07 X1000 (4.8-10.8)
[2018-09-03 07:23] LABS: INR 1.34; PROTIME 17.7 Seconds (11.0-16.0)
[2018-09-03] MEDS: METAMUCIL PO SCH (08:47)
[2018-09-03] MEDS: ICAR-C PO SCH ×2 (08:47→21:20)
[2018-09-03] MEDS: CENTRUM SILVER PO SCH (08:47)
[2018-09-03] MEDS: PROTONIX IV SCH (08:47)
[2018-09-03] MEDS: MIRALAX PO SCH ×2 (08:47→21:21)
[2018-09-03] MEDS: TIMOPTIC 0.5% OPH SOLUTION BOTH EYES SCH (08:48)
[2018-09-03] MEDS: POTASSIUM CHLORIDE 20 MEQ/SWI 20 MEQ/100 ML IVPB IV SCH ×2 (08:48→11:14)
[2018-09-03] MEDS: MYCOSTATIN SUSP PO SCH ×4 (08:48→21:21)
--- NOTE | 2018-09-03 12:56 | PROGRESS NOTE ---
DATE: 09/03/2018 SUBJECTIVE: This morning, Ms. Hatch remains critical. Last night, I understand she became hypotensive and needed to be resuscitated with fluid. Blood pressure is now 101/51, pulse is 78, respiration is 18, temperature 97.4. OBJECTIVE: General exam: Ms. Hatch is a 73-year-old, female. She is in bed, not in any cardiopulmonary distress. Mucosa is pink and moist. Anicteric. Acyanotic. Neck: Supple. No JVD. Respiratory System: Air entry is bilaterally reduced. There is diffuse wet crackles posteriorly. Cardiovascular: Regular rate and rhythm. No murmurs, no rubs, no gallops. Gastrointestinal: Abdomen is soft, distended, but nontender. Bowel sounds are present but hypoactive. There is edema around the lateral aspect of the abdominal wall. Extremities: About 3 to 4+ pedal edema. 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 Follows some basic commands. LABORATORY DATA: WBC is 1.07, hemoglobin is 7.8, platelet count of 39. Sodium is 142, potassium is 2.8, chloride is 107, bicarb is 17, creatinine has normalized to 0.9. So far, peritoneal fluid has come back to be negative for any bacterial growth. ASSESSMENT: 1. Altered mental status on presentation secondary to metabolic encephalopathy, improved. The patient's sodium was 172 on admission, which has normalized. 2. Enterobacter cloacae and pneumonia. The patient has completed treatment with meropenem and Zyvox for 18 days. 3. Pancytopenia with element concerning for peripheral destruction (disseminated intravascular coagulation) noted. The patient will be transfused accordingly. 4. Extensive bilateral lower extremity deep vein thrombosis. Unfortunately, the patient cannot be anticoagulated because of life-threatening gastrointestinal bleed (rectovaginal bleed). Surgery has also been consulted previously for inferior vena cava filter. However, the patient is a nonsurgical candidate. 5. Severe right hydroureteronephrosis secondary to extrinsic compression from the pancreatic cancer noted. 6. Rectovaginal bleed. 7. Ascites, status post 6.1 L removed on August 30, 2017. Fluid analysis is consistent with portal hypertension physiology. 8. 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 9. Cirrhosis of the liver. Etiology is unclear. 10. Severe protein calorie malnutrition with prealbumin of 3.5. The patient has been encouraged to take her milk shakes. 11. Acute kidney injury improved. 12. Poor performance status with cachexia and generalized weakness and deconditioning secondary to underlying malignancy. 13. Disseminated intravascular coagulation secondary to underlying malignancy. 14. Hypokalemia. We will replace this today. PLAN: So, in general, Ms. Hatch continues to be extremely critical with very poor prognosis. Dr. Mckeon from [facility] actually called me back today after I had called early on and after our discussions, he also got to understand that Ms. Hatch is now extremely sick with very poor prognosis and that from his end, he does not think there will be anything that he will be able to do and that hospice needs to be recommended to Ms. Hatch. I did, however, explain to him that the daughter keeps getting different information from his office, so if he would be able to reach out to the family (the daughter) and let her know what his position is. He told me he will call the daughter and recommend possible hospice. cc: Quinton Lucero MD
[2018-09-03] MEDS: ATIVAN IV PRN (21:20)
--- NOTE | 2018-09-04 00:06 | GASTROENTEROLOGY PROGRESS NOTE ---
DATE: 09/03/2018 SUBJECTIVE: No acute overnight events. Afebrile. The patient is eating very little. Daughter at bedside reports the patient has had some confusion. She denies any shortness of breath or chest pain. No nausea, vomiting. Positive bowel movements. She has some confusion. PHYSICAL EXAMINATION: Vital signs: Temperature 97.4 degrees, heart rate 78, respiratory rate 18, blood pressure 101/51, oxygen saturation 97% on 5 L nasal cannula. General: The patient is awake, alert, disoriented, cachectic, malnourished. HEENT: Anicteric. Moist mucous membranes. Oropharynx clear. Neck: No lymphadenopathy. Cardiac: Regular rate and rhythm. No murmurs. Lungs: Clear to auscultation bilaterally. Abdomen: Distended. Mild diffuse tenderness throughout. No rebound or guarding. Bowel sounds present. Extremities: Lower extremities with 3+ edema, anasarca. Neurologic: The patient is moving all extremities symmetrically. LABORATORIES: White count is 1.07, hemoglobin is 7.8, platelets of 39,000. INR of 1.34. Sodium 142, potassium 2.8, chloride of 107, bicarb 19, BUN 97, creatinine 0.9, albumin 2.8. AST of 13, ALT of 8, alkaline phosphatase of 72. ASSESSMENT AND PLAN: Ms. Hatch is an unfortunate, 73-year-old woman with unresectable metastatic pancreatic cancer, with peritoneal carcinomatosis and ascites, complicated bowel obstruction. She has a history of diverting jejunostomy. Her pancreatic cancer is followed by [facility] in [place]. She continues to have a deteriorating clinical course with progressive pancytopenia, confusion, and malnutrition. For her pancreatic cancer, the patient is followed in [place]. Her chemotherapy has been held, given her acute illness. I suspect she probably will not be able to initiate therapy, given her worsening clinical course and functional status. The primary team is looking into whether she would be a candidate for transfer to [place] to be treated by her primary oncologist. 1. Ascites. She is status post paracentesis on August 30 with 6 L removed. No significant abdominal discomfort currently. No appreciable ascites. 2. Pancytopenia, suspect related to her overall malnutrition. Defer to primary team for management. 3. Malnutrition. She is currently on Clinimix. She was previously on TPN briefly. This may need to be restarted, given her clinical status. 4. Pneumonia. She is currently on antibiotics as per primary team. 5. Declining functional status. I suspect that the patient will need continued discussion with Palliative Care. Her daughter is currently reluctant to consider hospice and end-of-life discussions. I appreciate Palliative Care assistance with continued goals of care discussion. We will follow with you. Please call with any questions or concerns. SHERRILL
[2018-09-04] MEDS: CARAFATE LIQUID PO SCH ×4 (01:35→21:02)
[2018-09-04 06:16] LABS: AGAP 16; ALB/GLOB RATIO 1.1; ALBUMIN 2.9 g/dL (3.5-5.0); ALKALINE PHOSPHATASE 78 U/L (32-104); BUN 92 mg/dL (8-22); CALCIUM 8.6 mg/dL (8.8-10.2); CHLORIDE 112 mmol/L (98-107); COSMO 327; CREATININE 0.8 mg/dL (0.5-0.9); ESTIMATED GFR > 60; GLUCOSE 208 mg/dL (70-104); GOT 11 U/L (10-30); GPT 8 U/L (10-36); POTASSIUM 2.8 mmol/L (3.5-5.1); SODIUM 147 mmol/L (136-145); TCO2 19 mmol/L (25-35); TOTAL BILIRUBIN 0.67 mg/dL (0.20-1.00); TOTAL PROTEIN 5.6 g/dL (6.3-8.3)
[2018-09-04 06:18] LABS: HEMATOCRIT 23.3 % (37.0-47.0); HEMOGLOBIN 7.6 g/dL (12.0-16.0); MCH 27.8 PG (27-31); MCHC 32.6 g/dL (33-37); MCV 85.3 FL (81-99); MPV 12.5 FL (7.4-10.4); RBC 2.73 XMIL (4.2-5.4); RDW 18.4 % (11.5-14.5); WBC 1.68 X1000 (4.8-10.8)
--- NOTE | 2018-09-04 07:37 | Diag Imaging Result Doc PS360 ---
EXAM: CHEST-PORTABLE INDICATION: dyspnea TECHNIQUE: One view COMPARISON: 09/01/2018 FINDINGS: Right PICC line is in stable position. Central and basilar infiltrates suggesting edema and small bilateral pleural effusions are essentially stable. No new consolidation is identified. Cardiac silhouette is stable. IMPRESSION: Stable chest. Electronically signed by Markell Loving 09/04/2018 7:34 AM
[2018-09-04] MEDS ORDERED: MAGNESIUM SULFATE 2 GM/S.W.I. 2 GM/50 ML IVPB IV ONE (08:07)
[2018-09-04] MEDS: TIMOPTIC 0.5% OPH SOLUTION BOTH EYES SCH (08:36)
[2018-09-04] MEDS: METAMUCIL PO SCH (08:36)
[2018-09-04] MEDS: MYCOSTATIN SUSP PO SCH ×4 (08:37→21:02)
[2018-09-04] MEDS: MIRALAX PO SCH ×2 (08:37→21:02)
[2018-09-04] MEDS: CENTRUM SILVER PO SCH (08:37)
[2018-09-04] MEDS: ICAR-C PO SCH ×2 (08:37→21:01)
[2018-09-04] MEDS: PROTONIX IV SCH (08:38)
[2018-09-04] MEDS: POTASSIUM CHLORIDE 20 MEQ/SWI 20 MEQ/100 ML IVPB IV SCH ×2 (09:36→11:40)
[2018-09-04] MEDS: MORPHINE IV PRN (14:18)
--- NOTE | 2018-09-04 19:07 | PROGRESS NOTE ---
DATE: 09/04/2018 SUBJECTIVE: Ms. Hatch was just groaning and complaining of a lot of pain at her back. Her daughter was at the bedside at the time of the encounter. OBJECTIVE: Vital signs: Blood pressure is 100/54, pulse of 84, respirations 15 , temperature 97.6 degrees. General: Ms. Hatch is a 73-year-old female. She is in bed in no distress. Mucosa is pink and moist. Anicteric. Acyanotic. Neck: Supple. Respiratory: There is decreased air entry in both lung esposito. There is diffuse wet crackles posteriorly. Cardiovascular: Regular rate and rhythm. No murmurs, no rubs, no gallops. GI : Abdomen was soft, distended, but nontender. Bowel sounds are present, but they are hypoactive. There is a lot of edema around the lateral aspect of the abdominal wall. Extremities: About 4+ pedal edema. TOUR DIRECTOR: Patient is awake, responsive, and follows basic commands. LABORATORY DATA: WBC is 1.68, hemoglobin is 7.6, platelet count of 29,000. Chemistry is also reviewed. Sodium is 147. Potassium is 2.8. DIAGNOSTIC STUDIES: A chest x-ray this morning shows small pleural effusions and central and bibasilar infiltrates suggesting edema. ASSESSMENT: 1. Altered mental status on presentation secondary to metabolic encephalopathy, improved. 2. Hypernatremia on presentation, resolved. 3. Enterobacter cloacae pneumoniae, treated. 4. Pancytopenia, noted. 5. Thrombocytopenia, likely due to disseminated intravascular coagulation. The patient is currently not actively bleeding. Platelet count has come down. We will transfuse if it goes below 20. 6. Extensive bilateral lower extremity deep vein thrombosis. Unfortunately, patient cannot be anticoagulated because of life-threatening gastrointestinal bleed ( rectovaginal bleed). 7. Severe right hydroureteronephrosis secondary to extrinsic compression from the pancreatic cancer, noted. 8. Rectovaginal bleed currently subsided. 9. Ascites status post 6.1 L removed on 08/30/2017. Fluid analysis is consistent with portal hypertension physiology. Cytology is negative. 10. 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 11. Cirrhosis of the liver, unclear etiology. GI is on board. 12. Acute kidney injury, resolved. 13. Poor performance status with cachexia and generalized weakness and deconditioning. 14. Hypokalemia. Will continue to replace. PLAN: In general, Ms. Hatch continues to be fairly stable but poor prognosis. She has been hurting. However, the daughter is very adamant in wanting to hold off on any pain medications for now. I had discussions with the daughter today, also mentioned to her about my discussions from [facility] and his recommendations of Hospice. However, the daughter became extremely very tearful and told me that she would prefer to discuss this at a later date. cc: Quinton Lucero MD [facility]
[2018-09-04 20:46] LABS: HEMATOCRIT 23.4 % (37.0-47.0); HEMOGLOBIN 7.6 g/dL (12.0-16.0); MCH 27.8 PG (27-31); MCHC 32.5 g/dL (33-37); MCV 85.7 FL (81-99); MPV 10.8 FL (7.4-10.4); RBC 2.73 XMIL (4.2-5.4); RDW 18.4 % (11.5-14.5); WBC 1.81 X1000 (4.8-10.8)
[2018-09-04] MEDS: ATIVAN IV PRN (21:01)
[2018-09-04] MEDS: ZOFRAN IV PRN (21:01)
[2018-09-05] MEDS ORDERED: NS 500 ML ONE (00:17)
[2018-09-05] MEDS: CARAFATE LIQUID PO SCH ×4 (01:06→23:26)
--- NOTE | 2018-09-05 01:49 | GASTROENTEROLOGY PROGRESS NOTE ---
DATE: 09/04/2018 SUBJECTIVE: No acute overnight events. Afebrile. The patient continues to be confused. She does report some abdominal pain diffusely. No reported nausea, vomiting, fevers , chest pain. Some shortness of breath. OBJECTIVE: Vital Signs: Temperature 97.6 degrees, heart rate 84, respiratory rate 16, blood pressure 100/54, oxygen saturation 97% on 5 L nasal cannula. General: The patient is awake, alert, confused, cachectic, malnourished. HEENT: Extraocular motor intact. Sclerae anicteric. Moist mucous membranes. Neck: No lymphadenopathy. Cardiac: Regular rate and rhythm. No murmurs. Lungs: Increased work of breathing. Mild tachypnea. Decreased breath sounds bilaterally at the bases. Abdomen: Soft, nontender, nondistended. There is some mild diffuse tenderness. No rebound or guarding. No appreciable ascites. Extremities: 3 + lower extremity edema, with anasarca. LABS: White count of 1.68, hemoglobin of 7.6, which is stable over the last 3 days. Platelets of 29,000. Sodium 147, potassium 2.8, chloride of 112, bicarbonate of 19, BUN of 92, creatinine of 0.8, albumin of 2.9. ASSESSMENT AND PLAN: 1. Ms. Hatch is an unfortunate 46-year-old woman with unresectable metastatic pancreatic cancer, with peritoneal carcinomatosis and ascites, complicated by bowel obstruction requiring diverting jejunostomy. Her clinical course continues to be unchanged from previous. She does have progressive pancytopenia, confusion, and malnutrition. Labs notable for hypokalemia today, and elevated BUN, suggestive of prerenal azotemia from volume depletion. For her pancreatic cancer, current therapies as planned per her oncologist in [place] have been put on hold, given her current status worsening functional status and illness. Will defer to primary oncologist for any treatment plans. 2. Pancytopenia, stable. No obvious source of overt gastrointestinal bleeding. The patient has been seen by Hematology and Oncology while in hospital. 3. Severe protein calorie malnutrition. The patient is currently on Clinimix. The patient has been seen by Nutrition. Consider initiation of TPN, as patient is not a candidate for PEG tube placement, given ascites. 4. Pneumonia. She continues to require high levels of oxygen, which has been slowly weaned. She is currently on 5 L. She is status post a prolonged course of antibiotics. We will follow with you. Please call with any questions or concerns. MTDVladislav
--- NOTE | 2018-09-05 05:34 | PULMONOLOGY PROGRESS NOTE ---
DATE: 09/04/2018 SUBJECTIVE: The patient is likely disoriented. She continues to cry out. She is in pain but cannot specify where. She continues to cry out that she needs to sleep. Daughter reports she is passing some blood from her rectum or vagina. OBJECTIVE: Vital Signs: The patient is afebrile. Blood pressure 104/53, heart rate 78, respiratory rate 13. Oxygen saturation 98% on nasal cannula. HEENT: Pupils are equal and reactive. Oropharynx is clear but dentures are ill fitting. She has bitemporal wasting. Neck: Supple. Chest: Reveals shallow breath sounds but clear. Cardiac Examination: S1 and S2. Gastrointestinal: Abdomen is mildly tender with decreased bowel sounds. Extremities: Without change. She does have lower extremity edema associated with known bilateral deep vein thrombosis. Laboratories: Arterial blood gas yesterday with pH of 7.44, pCO2 of 30, PO2 of 108, on 5 L per nasal cannula. Sodium 147, potassium 2.8, chloride 112, bicarbonate 19, BUN 92, creatinine 0.8. White blood count 1.68, hemoglobin 7.6, platelet count 29,000. Chest x-ray this morning, bibasilar effusions unchanged. IMPRESSION: A 73-year-old with metastatic pancreatic cancer, peritoneal carcinomatosis, ascites, confusion, protein calorie malnutrition, pancytopenia, pleural effusions, acute hypoxemic respiratory failure, gastrointestinal bleeding. PLAN: 1. Continue oxygen for hypoxemic respiratory failure. 2. Continue comfort measures. 3. Continue end of life discussions. The patient's performance status is so low she is unlikely to ever receive any treatment for her metastatic cancer. cc: Jeremiah Garcia MD
[2018-09-05 05:36] LABS: ESTIMATED GFR > 60
[2018-09-05 05:37] LABS: HEMATOCRIT 21.8 % (37.0-47.0); MCH 27.8 PG (27-31); MCHC 32.1 g/dL (33-37); MCV 86.5 FL (81-99); MPV 11.3 FL (7.4-10.4); RBC 2.52 XMIL (4.2-5.4); RDW 18.6 % (11.5-14.5); WBC 1.73 X1000 (4.8-10.8)
[2018-09-05 05:39] LABS: AGAP 13; ALB/GLOB RATIO 1.1; ALBUMIN 3.1 g/dL (3.5-5.0); ALKALINE PHOSPHATASE 82 U/L (32-104); BUN 85 mg/dL (8-22); CALCIUM 9.2 mg/dL (8.8-10.2); CHLORIDE 118 mmol/L (98-107); COSMO 333; CREATININE 0.6 mg/dL (0.5-0.9); GLUCOSE 200 mg/dL (70-104); GOT 11 U/L (10-30); GPT 8 U/L (10-36); POTASSIUM 2.9 mmol/L (3.5-5.1); SODIUM 152 mmol/L (136-145); TCO2 21 mmol/L (25-35); TOTAL BILIRUBIN 0.63 mg/dL (0.20-1.00); TOTAL PROTEIN 5.9 g/dL (6.3-8.3)
--- NOTE | 2018-09-05 07:15 | Diag Imaging Result Doc PS360 ---
EXAM: CHEST-PORTABLE 09/05/2018 HISTORY: dyspnea TECHNIQUE: AP portable at 0533 COMMENT: There are bilateral pleural effusions. There is bibasilar atelectasis versus pneumonia. Compared to 09/04/2018 there has been no appreciable change. There is still hazy pulmonary edema over the lung bases. IMPRESSION: Small bilateral pleural effusions and basilar atelectasis. Pulmonary edema. Electronically signed by Eugene Donaldson 09/05/2018 7:13 AM
[2018-09-05] MEDS: TIMOPTIC 0.5% OPH SOLUTION BOTH EYES SCH (08:43)
[2018-09-05] MEDS: PROTONIX IV SCH (08:44)
[2018-09-05] MEDS: METAMUCIL PO SCH (08:44)
[2018-09-05] MEDS: CENTRUM SILVER PO SCH (08:44)
[2018-09-05] MEDS: ICAR-C PO SCH ×2 (08:44→23:27)
[2018-09-05] MEDS: D5W 1,000 ML IV SCH (08:44)
[2018-09-05] MEDS: MYCOSTATIN SUSP PO SCH ×4 (08:45→23:27)
[2018-09-05] MEDS: MIRALAX PO SCH ×2 (08:45→23:26)
[2018-09-05] MEDS ORDERED: NS 500 ML IV SCH (11:15)
--- NOTE | 2018-09-05 13:04 | PROGRESS NOTE ---
DATE: 09/05/2018 SUBJECTIVE: Patient resting in bed. She is currently sleeping, was able to wake up on commands, but she has continued to have decreased p.o. intake. She was having liquid brown-green stools per the nursing staff and records. OBJECTIVE: Vital signs: Temperature 97.5, pulse rate of 86, respiratory rate 16, blood pressure 125/68, satting 100% on 5 L. General Appearance: Thinly built, lying in bed, currently sleeping, was able to wake up on command. HEENT: Positive pallor. No icterus. Neck: Supple. Abdomen: Soft, nondistended. No guarding. Extremities: TEDs and SCDs noted. Neurologic: Neuro edwards, she was sleeping, was able to awake on command, but could not answer any of my questions. LABS: Hemoglobin and hematocrit is 7 and 21.8, white count 1.73, platelet count of 77. Sodium of 130, potassium 2.9, chloride 118, bicarbonate 21, anion gap 13. BUN of 85, creatinine 0.6, glucose up to 100, calcium 9.2. Total bilirubin is 0.63, AST 11 and ALT 8, alkaline phosphatase is 82. Total protein 5.9, albumin 3.1. GABRIELA is negative. Acute hepatitis panel is nonreactive. IMAGING STUDIES: Chest x-ray done today showed small bilateral pleural effusion and basilar atelectasis. Pulmonary edema noted. IMPRESSION AND PLAN: 1. Metastatic pancreatic cancer complicated by peritoneal carcinomatosis, history of gastrojejunal bypass, who is currently being managed by the primary care team and [facility]. 2. Gastrointestinal bleeding. She has liquid green stools. No blood was noted by the nursing staff. We will transfuse as needed. She is scheduled to receive 1 unit of blood transfusion today. 3. Thrombocytopenia. She received platelet transfusion yesterday. 4. Ascites status post paracentesis. No more distention noted. 5. Poor oral intake. She is on Clinimix and nursing assistance for oral feeding. 6. Pneumonia. She is on high amounts of oxygen. 7. Pancytopenia. Hematology and Oncology is on board. 8. Anemia. She will continue iron C twice daily. 9. Gastrointestinal prophylaxis with proton pump inhibitors once daily. 10. Bowel regimen with MiraLAX and Metamucil. 11. The above plans discussed with the patient's nurse and all questions were answered. Please call us with any further questions. cc: MD Quinton Melgar MD
--- NOTE | 2018-09-05 14:32 | PROGRESS NOTE ---
DATE: 09/05/2018 SUBJECTIVE: This morning Ms. Hatch fairly remains the same, critical, and no changes overnight. The platelet count continued to go down, so she was transfused a unit of platelets yesterday. This morning, her hemoglobin is 7.0, so she has been transfused a unit of PRBC. OBJECTIVE: Vital signs: Blood pressure is 131/83, pulse is 83, respirations 18 , temperature 97.4 degrees. General: Ms. Hatch is a 73-year-old female. She is in bed. No cardiopulmonary distress. HEENT: Mucosa is pink, slightly dry. Anicteric. Acyanotic. Neck: Supple. Chest: Air entry is bilaterally reduced. There are crackles posterior. Cardiovascular: Regular rate and rhythm. No murmurs, no rubs, no gallops. Gastrointestinal: Abdomen is soft, distended, and minimally tender all over the abdominal wall. There is a lot of edema at the lateral aspect of the abdominal wall. Extremities: 3+ pedal edema. Central nervous system: Patient is awake, follows basic commands. She continues to be shouting at random that she wants to go home. At some point, she told me her mom is calling her at home. DIAGNOSTIC DATA: WBC is 1.73, hemoglobin is 7.0, platelet count of 77,000. Chemistry is also reviewed. Sodium is up to 152, potassium is 2.9. ASSESSMENT: 1. Altered mental status on presentation secondary to metabolic encephalopathy, improved. 2. Hypernatremia on presentation. This got better; however, sodium has gone up again so we started her on gentle D5 hydration. 3. Enterobacter cloacae pneumonia. This has been treated. 4. Pancytopenia. This continues to be getting worse. Patient needs blood products every now and then. 5. Severe thrombocytopenia, suspicious to be DIC. 6. Extensive bilateral lower extremity deep vein thrombosis. Unfortunately, patient cannot be anticoagulated. 7. Rectovaginal bleed. 8. Ascites status post 6.1 L removed on 08/30/2017. Fluid analysis is consistent with portal hypertension. Cytology is negative. 9. 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 10. Cirrhosis of the liver of unclear etiology. 11. Acute kidney injury, improved. 12. Poor performance status with general weakness and deconditioning and cachexia. In general, Ms. Hatch continues to be remarkably sick with poor prognosis. She is getting a PRBC transfusion today. She did have a platelet yesterday. I have spoken very extensively with the daughter. She did tell me that she has also got in touch with Dr.Meirie ricardo , and they have recommended palliative care for now, and that if the patient gets any better, then they would go ahead and give her some alternative treatment. So, I have discussed palliative care with the daughter, and we will go ahead and consult Palliative/Hospice today for them to get started on arrangement to get her home on palliative care and go from there. I have also spoken with the palliative nurse who is on board. cc: Quinton Lucero MD MTDD
[2018-09-05] MEDS: MORPHINE IV PRN (22:17)
[2018-09-05] MEDS: ATIVAN IV PRN (22:54)
[2018-09-06] MEDS: CARAFATE LIQUID PO SCH ×4 (02:08→22:04)
[2018-09-06] MEDS: MORPHINE IV PRN ×2 (02:32→08:47)
[2018-09-06] MEDS: D5W 1,000 ML IV SCH ×3 (04:34→18:42)
[2018-09-06] MEDS: ATIVAN IV PRN (04:34)
--- NOTE | 2018-09-06 07:22 | Diag Imaging Result Doc PS360 ---
EXAM: CHEST-PORTABLE INDICATION: dyspnea TECHNIQUE: One view COMPARISON: 09/05/2018 FINDINGS: Lung volumes are low. Bibasilar pleural effusion with adjacent atelectasis is essentially stable. Pulmonary edema is unchanged. No new consolidation is identified. Cardiac silhouette is stable. IMPRESSION: Stable chest. Electronically signed by Markell Loving 09/06/2018 7:20 AM
[2018-09-06 07:28] LABS: HEMATOCRIT 27.1 % (37.0-47.0); HEMOGLOBIN 8.7 g/dL (12.0-16.0); MCH 28.2 PG (27-31); MCHC 32.1 g/dL (33-37); MCV 87.7 FL (81-99); MPV 11.6 FL (7.4-10.4); RBC 3.09 XMIL (4.2-5.4); RDW 18.3 % (11.5-14.5); WBC 2.76 X1000 (4.8-10.8)
[2018-09-06 08:13] LABS: ESTIMATED GFR > 60
[2018-09-06 08:19] LABS: AGAP 15; ALKALINE PHOSPHATASE 87 U/L (32-104); BUN 71 mg/dL (8-22); CHLORIDE 119 mmol/L (98-107); COSMO 332; CREATININE 0.6 mg/dL (0.5-0.9); GLUCOSE 240 mg/dL (70-104); GOT 12 U/L (10-30); GPT 8 U/L (10-36); POTASSIUM 2.7 mmol/L (3.5-5.1); SODIUM 153 mmol/L (136-145); TCO2 19 mmol/L (25-35); TOTAL BILIRUBIN 0.65 mg/dL (0.20-1.00); TOTAL PROTEIN 5.9 g/dL (6.3-8.3)
[2018-09-06] MEDS ORDERED: MAGNESIUM SULFATE 2 GM/S.W.I. 2 GM/50 ML IVPB IV ONE (08:30)
[2018-09-06] MEDS ORDERED: KLOR-CON PO ONE (08:30)
[2018-09-06] MEDS: PROTONIX IV SCH (08:50)
[2018-09-06] MEDS: SODIUM CHLORIDE 0.9% INJ SCH (08:50)
[2018-09-06] MEDS: ICAR-C PO SCH ×2 (08:51→22:05)
[2018-09-06] MEDS: CENTRUM SILVER PO SCH (08:51)
[2018-09-06] MEDS: METAMUCIL PO SCH (08:51)
[2018-09-06] MEDS: TIMOPTIC 0.5% OPH SOLUTION BOTH EYES SCH (08:52)
[2018-09-06] MEDS: MIRALAX PO SCH ×2 (08:52→22:05)
[2018-09-06] MEDS: MYCOSTATIN SUSP PO SCH ×4 (08:52→22:05)
[2018-09-06] MEDS: POTASSIUM CHLORIDE 20 MEQ/SWI 20 MEQ/100 ML IVPB IV SCH ×2 (09:04→11:20)
[2018-09-06 09:52] LABS: ALLEN TEST YES; BE -3.2 mmoll (-3.0-3.0); BLOOD TYPE ARTERIAL; HCO3-(ACT) 22.5 mmoll (20.0-26.0); METHB 1.4 % (0.0-1.5); MODALITY NRB; O2(CT) 12.6 mL/dL (15.0-23.0); O2HB 97.2 % (95.0-99.0); PCO2(98.6) 39 mmHg (35-45); PO2(98.6) 299 mmHg (60-100); SAMPLE BLOOD; SAO2 99.6 % (95.0-100.0); THB 8.6 g/dL (11.5-17.4); pH(98.6) 7.36 (7.35-7.45)
[2018-09-06 10:03] LABS: INR 1.35; PROTIME 17.7 Seconds (11.0-16.0)
--- NOTE | 2018-09-06 10:42 | GASTROENTEROLOGY PROGRESS NOTE ---
DATE: 09/06/2018 SUBJECTIVE: Patient transfused platelets and packed red blood cells yesterday secondary to rectal bleeding. Overnight, she received Ativan for agitation this morning. She is afebrile and somnolent, not responding to commands or questions. She is on a face mask with 15 L of oxygen. Per daughter at bedside, daughter is concerned that patient is being oversedated with medications. She is also concerned that the patient will be discharged from the hospital and would like to speak with someone from the palliative care team to help obtain resources for her mother. OBJECTIVE: Vital Signs: Temperature 97.9 degrees, heart rate 69, respiratory rate 15, blood pressure 130/64. She is saturating 87% on 15 L of oxygen. LABORATORY DATA: White count 2.7, hemoglobin 8.7, platelets 27,000. Sodium 153, potassium 2.7, chloride 119, bicarb 19, BUN 71, creatinine 0.6. LFTs are unchanged. Peritoneal cultures from 08/30/2018 are negative to date. DIAGNOSTIC STUDIES: Chest x-ray this morning shows bibasilar pleural effusion with adjacent atelectasis, but is essentially stable. Pulmonary edema is unchanged. No new consolidation seen. ASSESSMENT AND PLAN: 1. Ms. Kelsey is an unfortunate 73-year-old woman with unresectable metastatic pancreatic cancer with peritoneal carcinomatosis and ascites, complicated by bowel obstruction requiring diverting jejunostomy. In the last couple of days, she has developed rectal bleeding in the setting of coagulopathy and receiving suppositories for constipation. I suspect that her rectal bleeding is secondary to hemorrhoids given that her symptoms started after receiving suppositories. She has been transfused red blood cells and platelets. Her hemoglobin has been slightly improved, but her platelets remain low. I spoke with her daughter extensively this morning in regard to her Full Code status and suggested we have Palliative Care come in and speak with her in regard to her goals of care. I suspect that if the patient's respiratory status worsens or she has a cardiac event, that she would not likely not survive a code. In regard to her worsening mental status and O2 requirements, this may be iatrogenic in the setting of receiving Ativan. I recommended that we obtain a blood gas and minimize sedating medications. Would appreciate Palliative Care recommendations in regards to treating agitation and pain. 2. Pancytopenia. The patient currently is not having any further rectal bleeding at this point. Platelets remain low. I suspect that transfusing her platelets may not help at this time given likely consumption intravascularly. 3. Anemia. Hemoglobin is 8.7 today. We will continue to trend hemoglobin and hematocrit daily. 4. Severe protein-calorie malnutrition. Recommend Nutrition be involved in initiating total parenteral nutrition as the patient's oral intake has continued to decline and she is not a candidate for percutaneous endoscopic gastrostomy tube feeding at this time. Nasogastric tube placement with tube feeds is likely to cause her more agitation and increased risk for aspiration. 5. Pneumonia. Her x-ray this morning shows stable bibasilar effusions with atelectasis, but no new consolidation. She is status post prolonged course of antibiotics. Will await blood gas given her O2 requirement. Suspect this is likely related to sedation. We will follow with you. Please call with any questions or concerns.
[2018-09-06] MEDS: HUMULIN R SUBQ SCH ×3 (11:19→22:04)
[2018-09-06 20:08] LABS: ESTIMATED GFR > 60
[2018-09-06 20:32] LABS: AGAP 9; BUN 64 mg/dL (8-22); CALCIUM 9.1 mg/dL (8.8-10.2); CHLORIDE 119 mmol/L (98-107); COSMO 321; CREATININE 0.5 mg/dL (0.5-0.9); GLUCOSE 187 mg/dL (70-104); POTASSIUM 2.8 mmol/L (3.5-5.1); SODIUM 150 mmol/L (136-145); TCO2 22 mmol/L (25-35)
--- NOTE | 2018-09-07 00:27 | PULMONOLOGY PROGRESS NOTE ---
DATE: 09/06/2018 SUBJECTIVE: The patient is resting quietly. She will arouse and focus on the examiner. She has no increased work of breathing. She currently is on a 50% Venturi mask. She is extremely weak. OBJECTIVE: Vital Signs: Oxygen saturation 100%. Blood pressure 139/76. Heart rate 81. Respiratory rate 16. HEENT: Pupils are equal. Oropharynx is slightly dry. She has bitemporal wasting. Her dentures are ill-fitting. Neck: Supple. Chest: Reveals shallow breath sounds bilaterally, with occasional rhonchi. She is too weak to completely clear her airways. Cardiac: S1-S2. Abdomen: Soft, with no bowel sounds present. Extremities: Reveal +2 edema in the lower extremity. LABORATORY STUDIES: White blood count 2.76, hemoglobin 8.6, platelet count 27,000. Sodium 143, potassium 2.7, chloride 119, bicarbonate 19, BUN 71, creatinine 0.6. Chest x-ray reveals shallow lung volumes, with small effusions. No change. IMPRESSION: An unfortunate 73-year-old white female with metastatic pancreatic cancer, with abdominal carcinomatosis. The patient has had a progressive downhill course. She is very weak. She has hypoxemic respiratory failure, sarcopenia, a rectal mass with a rectovaginal fistula, episodes of lower GI bleeding, possibly related to the mass, with severe protein calorie malnutrition. She has a palliative performance status which moves between 20% and 10%. She is in her active phase of dying. The daughter cannot come to director private with her mother's dying, and continues to blame the staff for any evidence of decline in her mother. RECOMMENDATIONS: 1. Continue palliative treatment measures. 2. Patient's code status remains full, but unlikely to benefit from cardiopulmonary resuscitation. cc: Jeremiah Garcia MD
[2018-09-07] MEDS: CARAFATE LIQUID PO SCH ×4 (02:56→20:28)
[2018-09-07 06:00] LABS: ALLEN TEST YES; BE -2.4 mmoll (-3.0-3.0); BLOOD TYPE ARTERIAL; HCO3-(ACT) 23.1 mmoll (20.0-26.0); METHB 1.5 % (0.0-1.5); O2(CT) 12.5 mL/dL (15.0-23.0); O2HB 96.5 % (95.0-99.0); PCO2(98.6) 38 mmHg (35-45); PO2(98.6) 170 mmHg (60-100); SAMPLE BLOOD; SAO2 99.5 % (95.0-100.0); THB 8.9 g/dL (11.5-17.4); pH(98.6) 7.38 (7.35-7.45)
[2018-09-07 06:01] LABS: MODALITY VENTIMASK
[2018-09-07] MEDS: HUMULIN R SUBQ SCH ×4 (06:28→20:32)
--- NOTE | 2018-09-07 07:24 | PROGRESS NOTE ---
DATE: 09/06/2018 SUBJECTIVE: This morning, I saw Ms. Hatch. She was less responsive to me than yesterday. The daughter was very upset that the mother is not responding well and that she has just been doped. I understand that Ms. Hatch was hurting a lot and screaming, so p.r.n. morphine and Ativan was given to her. This morning, she has just been sleeping and very confused, barely responding to her name, which obviously is a change from her mental status yesterday, and that was the reason why the daughter was upset. She kept repeating that multiple times that Ms. Hatch is like this because of drugs and that she, the daughter, thought that nothing has really been done to make her mother better, and that we just want to drug her and then send her out. I did say that was quite an unfair statement because every now and then Ms. Hatch will shout, even days before, that she was hurting, and that she, the daughter, did not really want us to give her any pain medications. In any case, this morning Ms. Hatch was in bed. Face mask oxygen was placed on her and she would barely open her eyes to painful stimulation. Every now and then she would open her mouth and assume she is moaning. OBJECTIVE: Vital Signs: Her blood pressure was 129/81, pulse is 72, respiration is 14 and temperature is 97.9 degrees. General Exam: Ms. Hatch is a 73-year-old female. She was in bed. She did not seems to be in cardiopulmonary distress. HEENT: Mucosa was pink. Anicteric. Did have some distal cyanosis in the fingers. Chest: Air entry was bilaterally reduced. There are crackles posteriorly. Cardiovascular: Regular rate and rhythm. No murmurs, no rubs, no gallops. GI: Abdomen is soft, distended. There is a lot of fluid around the abdominal wall. Extremities: About 3+ pedal edema. ARCHITECT MARINE: Patient is lethargic. She will barely open her eyes to her name and she will move her extremities to painful stimulation. LABORATORY DATA: WBC is up to 2.76, hemoglobin is 8.7, platelet count of 27. Chemistry is also reviewed. Sodium is 153 potassium is 2.7, chloride is 119, bicarbonate is 19, BUN is up to 71. DIAGNOSTIC STUDIES: A chest x-ray this morning shows pulmonary edema which is unchanged. Lung volumes are low. Bibasilar pleural effusion with adjacent atelectasis, essentially stable. ASSESSMENT: 1. Altered mental status. This was the main reason why patient came into the emergency department. On presentation, her blood pressure was very low. She was altered. Sodium was 170. This was related, so we thought she had at that point metabolic encephalopathy which gradually got better. However, last night I understand 1 time dose of Ativan and morphine was given to her. This morning, she is also very altered. However, her sodium is also creeping up. 2. Severe hyponatremia on presentation. Sodium was 170. This got better during the hospital course; however, for the past 3 days this has been creeping up. The patient was getting 50 mL of dextrose to correct this. However, it has not really helped, so I have gone up to 75 mL today. 3. Pancytopenia. We think this is a combination of ongoing peripheral destruction and malignancy. 4. Severe thrombocytopenia, suspicious for disseminated intravascular coagulation. 5. Extensive bilateral lower extremity deep vein thrombosis. Unfortunately, patient cannot be anticoagulated. 6. Multiple episodes of rectovaginal bleed. 7. Ascites status post 6.1 liters removed on 08/30/2018. Fluid analysis is consistent with portal hypertension. Physiology, cytology is negative for malignancy. 8. 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 The patient follows up with Dr. Donovan in [facility]. 9. Cirrhosis of the liver of unclear etiology, complicated with ascites. 10. Acute kidney injury, improved. 11. Poor performance status with generalized weakness and deconditioning and cachexia all related to advanced malignancy. 12. Electrolyte abnormality (hypernatremia and hypokalemia noted). 13. Non-gap metabolic acidosis. PLAN: So, in general, Ms. Hatch this morning looks a lot more lethargic. This daughter obviously is very upset that she was given some pain medications. I did discuss with her and asked her if she wanted me to discontinue the pain medication and she said yes. I therefore discontinued the morphine and Ativan for Ms. Hatch, and I did ask the daughter to notify us if she thinks that her mom is in any discomfort, so that 1 of us will come and reassess Ms. Hatch before any medication is administered. I did also point out to her that Ms Hatch's sodium is going up. It is up to 153 and it has been climbing up slowly for the past 3 days, and that her altered mental status could also be compounded because of sodium issues and the fact that she has not really responded to D 5. I would go up on the fluid at the cost that we can compromise her fluid status and compromise her breathing. If that becomes an issue, we will have to intubate her. The daughter is okay for her to be intubated and for her to have aggressive treatment. As it is now Ms. Hatch is a full code. I have order to repeat her electrolytes this afternoon. We are going to keep a very close eye to her respiratory status. If she gets any worsening, we will transfer her to the ICU. TIME SPENT: Critical time spent was 45 minutes. cc: Quinton Lucero MD
[2018-09-07 07:25] LABS: HEMATOCRIT 27.3 % (37.0-47.0); HEMOGLOBIN 8.8 g/dL (12.0-16.0); LYMPH# 0.52 X1000 (1.2-3.4); LYMPH% 15.8 % (20.5-51.1); MCH 27.5 PG (27-31); MCHC 32.2 g/dL (33-37); MCV 85.3 FL (81-99); MONO# 0.29 X1000 (0.11-0.59); MONO% 8.8 % (1.7-9.3); NEUT# 2.49 X1000 (1.4-6.5); NEUT% 75.4 % (42.2-75.2); RDW 18.4 % (11.5-14.5)
[2018-09-07 07:28] LABS: PLT 25 X1000 (130-400)
[2018-09-07 07:37] LABS: INR 1.45; PROTIME 18.7 Seconds (11.0-16.0)
[2018-09-07 07:58] LABS: ESTIMATED GFR > 60
[2018-09-07 07:59] LABS: AGAP 13; ALKALINE PHOSPHATASE 95 U/L (32-104); BUN 59 mg/dL (8-22); CALCIUM 9.3 mg/dL (8.8-10.2); CHLORIDE 117 mmol/L (98-107); COSMO 325; CREATININE 0.5 mg/dL (0.5-0.9); GLUCOSE 247 mg/dL (70-104); GOT 13 U/L (10-30); GPT 9 U/L (10-36); POTASSIUM 2.8 mmol/L (3.5-5.1); SODIUM 151 mmol/L (136-145); TCO2 21 mmol/L (25-35); TOTAL BILIRUBIN 0.81 mg/dL (0.20-1.00)
[2018-09-07] MEDS: CENTRUM SILVER PO SCH (08:05)
[2018-09-07] MEDS: ICAR-C PO SCH ×2 (08:05→20:29)
[2018-09-07] MEDS: MYCOSTATIN SUSP PO SCH ×4 (08:05→20:00)
[2018-09-07] MEDS: D5W 1,000 ML IV SCH ×2 (08:05→23:42)
[2018-09-07] MEDS: MIRALAX PO SCH ×2 (08:05→20:29)
[2018-09-07] MEDS: METAMUCIL PO SCH (08:05)
[2018-09-07] MEDS: TIMOPTIC 0.5% OPH SOLUTION BOTH EYES SCH (08:06)
[2018-09-07] MEDS: SODIUM CHLORIDE 0.9% INJ SCH (08:09)
[2018-09-07] MEDS: PROTONIX IV SCH (08:09)
--- NOTE | 2018-09-07 08:21 | Diag Imaging Result Doc PS360 ---
EXAM: CHEST-PORTABLE HISTORY: dyspnea TECHNIQUE: Portable chest single view COMPARISON: 09/06/2018 FINDINGS: Poor inspiratory effort. No change in the right-sided PICC line. The heart is not enlarged. Basilar infiltrates are less pronounced. There are small pleural effusions. IMPRESSION: Mild interval improvement. Electronically signed by Kevin Puga 09/07/2018 8:19 AM
[2018-09-07] MEDS ORDERED: MAGNESIUM SULFATE 2 GM/S.W.I. 2 GM/50 ML IVPB IV ONE (08:44)
--- NOTE | 2018-09-07 09:47 | PROGRESS NOTE ---
DATE: 09/07/2018 SUBJECTIVE: This morning, Ms. Hatch was slightly more alert. She was still nonverbal, but she tried to say a few things that could not be able to come out. The daughter was at the bedside at the time of the encounter. OBJECTIVE: Vital signs: Blood pressure is 114/83, pulse is 90, respirations 16, temperature 98.9. General: Ms. Hatch is a 73-year-old, female. She is in bed. She did not seem to be in cardiopulmonary distress, but she was still on a face mask, saturating about 99%. Neck: Supple. There was no JVD. Chest: Air entry was bilaterally reduced. There are still some crepitations posteriorly. Cardiovascular: Regular rate and rhythm. No murmurs, no rubs, no gallops. GI: Abdomen soft, distended. There is fluid around the abdominal wall. Extremities: 4+ pedal edema. 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 She would open her eyes to commands. She will try to wiggle her toes upon commands and she seems to be engaging more today than yesterday. LABORATORY DATA: WBC is up to 3.30, hemoglobin is 8.8, platelet count of 25. ABGs have been reviewed. Sodium is 151, potassium is 2.8, chloride is 117, bicarb is 21, BUN is 51, creatinine 0.5. DIAGNOSTIC STUDIES: A chest x-ray this morning shows mild interval improvement. CURRENT MEDICATIONS: 1. Tylenol 650 p.r.n. 2. D5 at 75 mL/hours. 3. Sliding scale insulin. 4. Vitamin C and iron. 5. Multivitamins. 6. Protonix 40 mg IV daily. 7. MiraLAX 17 g daily. 8. Carafate. ASSESSMENT: 1. Altered mental status, improving. 2. Hypernatremia. We will continue with D5 infusion. 3. Pancytopenia, fairly stable. 4. Severe thrombocytopenia. Platelet count has dropped slightly today, but for most part seems to be fairly stable. The patient is not showing any obvious external bleeding, so we will continue to observe. 5. Extensive bilateral lower extremity deep vein thrombosis. Unfortunately, patient cannot be anticoagulated because of life-threatening GI bleed. 6. Multiple episodes of rectal vaginal bleed. 7. Ascites. Status post 6.1 L removed on 08/30/2018. Fluid analysis is consistent with portal hypertension physiology. Cytology is negative for malignancy. 8. 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 The patient follows up with Dr. Mckeon in [facility]. 9. Cirrhosis of the liver. Etiology is unclear. Complicated with ascites. 10. Acute kidney injury improved. 11. Electrolyte abnormalities (including hypernatremia and hypokalemia). We will continue to address it. 12. Poor performance status with generalized weakness and deconditioning and cachexia related to advanced malignancy. So, this morning, Ms. Hatch looks slightly more alert, more engaging than yesterday. We have discontinued all opioids and any benzodiazepines for now. We are going to continue with current management. The patient's daughter still wants to keep her mother full code. cc: Quinton Lucero MD
[2018-09-07] MEDS: POTASSIUM CHLORIDE 20 MEQ/SWI 20 MEQ/100 ML IVPB IV SCH ×2 (10:33→13:03)
[2018-09-08] MEDS: CARAFATE LIQUID PO SCH ×4 (02:19→20:16)
[2018-09-08] MEDS: HUMULIN R SUBQ SCH ×4 (06:14→23:19)
[2018-09-08 07:51] LABS: HEMATOCRIT 27.1 % (37.0-47.0); HEMOGLOBIN 8.7 g/dL (12.0-16.0); MCH 27.7 PG (27-31); MCHC 32.1 g/dL (33-37); MCV 86.3 FL (81-99); RBC 3.14 XMIL (4.2-5.4); RDW 18.4 % (11.5-14.5); WBC 3.81 X1000 (4.8-10.8)
[2018-09-08 07:52] LABS: PLT 12 X1000 (130-400)
[2018-09-08 08:02] LABS: AGAP 12; ALB/GLOB RATIO 0.9; ALBUMIN 2.7 g/dL (3.5-5.0); ALKALINE PHOSPHATASE 114 U/L (32-104); BUN 45 mg/dL (8-22); CALCIUM 8.6 mg/dL (8.8-10.2); CHLORIDE 116 mmol/L (98-107); COSMO 316; CREATININE 0.5 mg/dL (0.5-0.9); ESTIMATED GFR > 60; GLUCOSE 206 mg/dL (70-104); GOT 14 U/L (10-30); GPT 10 U/L (10-36); POTASSIUM 3.1 mmol/L (3.5-5.1); SODIUM 150 mmol/L (136-145); TCO2 22 mmol/L (25-35); TOTAL BILIRUBIN 0.84 mg/dL (0.20-1.00); TOTAL PROTEIN 5.6 g/dL (6.3-8.3)
[2018-09-08] MEDS: METAMUCIL PO SCH ×2 (08:04→09:31)
[2018-09-08] MEDS: MIRALAX PO SCH ×2 (08:05→20:16)
[2018-09-08] MEDS: PROTONIX IV SCH (08:08)
[2018-09-08] MEDS: SODIUM CHLORIDE 0.9% INJ SCH (08:08)
[2018-09-08] MEDS ORDERED: KLOR-CON PO ONE (08:17)
[2018-09-08] MEDS: ICAR-C PO SCH ×2 (09:31→20:16)
[2018-09-08] MEDS: TYLENOL PO PRN ×2 (09:31→17:15)
[2018-09-08] MEDS: CENTRUM SILVER PO SCH (09:31)
[2018-09-08] MEDS: MYCELEX TROCHE PO SCH ×3 (09:31→20:16)
[2018-09-08] MEDS: D5W + KCL 20 MEQ 1,000 ML IV SCH (11:48)
[2018-09-08] MEDS: TIMOPTIC 0.5% OPH SOLUTION BOTH EYES SCH (11:49)
--- NOTE | 2018-09-08 12:31 | PROGRESS NOTE ---
DATE: 09/08/2018 SUBJECTIVE: This morning, Ms. Hatch is awake and alert. According to her, she has been hurting. She keeps asking her daughter when she will be going home. OBJECTIVE: Vital Signs: Blood pressure is 100/70, pulse is 83, respirations are 16, temperature is 97.5 degrees, the patient is saturating 100% on 2 L. General Examination: Ms. Hatch is a 73- year-old, female. She is in bed. She is on nasal cannula. HEENT: Mucosa is pink. Anicteric. Acyanotic. Neck: Supple. Chest: Air entry was bilaterally reduced. There are crepitations posteriorly. Cardiovascular: Regular rate and rhythm. No murmurs , no rubs, no gallops. GI: Abdomen is soft, is distended. There is a lot of fluid around the abdominal wall. Extremities: About 4+ pedal edema. RELEASE OF INFORMATION CLERK: The patient is awake and alert. She is able to respond to a few questions and will obey some commands but for most part, she keeps shouting, she keeps blurting out, saying she is hurting, saying she wants to go home. Laboratory Data: WBC is 3.81, hemoglobin 8.7, platelet count of 12,000. Chemistry is also reviewed. Sodium is 150, potassium is 3.1, chloride is 116, creatinine has normalized. Is and Os: The patient's urine output is 850, still positive balance. ASSESSMENT: 1. Altered mental status, improved. 2. Hypernatremia. We will continue with the D5 infusion. 3. Pancytopenia with severe thrombocytopenia. The patient is getting platelets transfused. 4. Extensive bilateral lower extremity deep vein thrombosis. Unfortunately, the patient cannot be anticoagulated because of life-threatening gastrointestinal bleed. 5. Multiple episodes of rectal and vaginal bleed. 6. Ascites, status post 6.1 L removed on 08/30/2018. 7. 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 8. Cirrhosis of the liver. Etiology is unclear. 9. Acute kidney injury, resolved. 10. Electrolytes abnormalities including hypernatremia and hypokalemia. We will continue to address this. 11. Poor performance status with generalized weakness and deconditioning, and cachexia associated with advanced malignancy. 12. Suspected disseminated intravascular coagulation. The patient's platelet count has dropped to 12,000. We are going to transfuse her platelets and also give her cryo. PLAN: In general, Ms. Hatch continues to be extremely sick. Poor prognosis. The daughter continues to believe that the mother can miraculously improve. I did notify her that for now, medically, she is stable. We are going to replace her electrolytes and take care of her hematological abnormalities. Hopefully, tomorrow, we can discharge her. I did ask her if she has made arrangements with palliative care. She said [facility] has not come back to her yet so she was going to call them and then make the arrangement. Hopefully, we can get Ms. Hatch home tomorrow. cc: Quinton Lucero MD MTDD
[2018-09-08] MEDS ORDERED: NS 500 ML ONE (16:34)
--- NOTE | 2018-09-08 20:52 | PULMONOLOGY PROGRESS NOTE ---
DATE: 09/08/2018 SUBJECTIVE: Patient is awake and conversant. She is confused. She asked "did we get it all done?" OBJECTIVE: General: The patient has been mildly hypothermic and has been initiated on a warming blanket. Her oxygen requirements have increased. Vital Signs: Blood pressure 119/70, heart rate 86, respiratory rate 20, oxygen saturation 97%. HEENT: Pupils are equal and reactive. Bitemporal wasting. Oropharynx reveals poor fitting dentures. She does have some petechiae on her hard palate with some sores on her lips. Neck: Supple. Chest: Reveals rhonchi bilaterally. Cardiac: S1, S2. Abdomen: Soft. There may be a fluid wave. Extremities: Reveal chronic edema. LABORATORIES: White blood count 3.8, hemoglobin 8.7, platelet count 12,000. Sodium 150, potassium 3.1, chloride 116, bicarbonate 16, BUN 45, creatinine 0.5. IMPRESSION: A 73-year-old with metastatic pancreatic cancer, abdominal carcinomatosis, hypoxemic respiratory failure, severe protein calorie malnutrition with sarcopenia, rectal mass with rectovaginal fistula with intermittent lower GI bleeding, periods of confusion and delirium, bone marrow failure with anemia, relative leukopenia and thrombocytopenia, with an extremely poor palliative performance status which is currently approximately 20% today. The patient is being evaluated by hospice for discharge tomorrow by daughter's report. She continues to want aggressive management and it is not clear that she has come to note teller with her mother's dying. RECOMMENDATIONS: 1. Continue palliative measures. 2. Continue oxygen for hypoxemic respiratory failure. 3. Overall prognosis is poor. cc: Jeremiah Garcia MD
[2018-09-09 01:28] LABS: ALLEN TEST YES; BE -4.6 mmoll (-3.0-3.0); BLOOD TYPE ARTERIAL; HCO3-(ACT) 21.1 mmoll (20.0-26.0); O2(CT) 14.4 mL/dL (15.0-23.0); PCO2(98.6) 29 mmHg (35-45); PO2(98.6) 52 mmHg (60-100); SAMPLE BLOOD; SAO2 91.3 % (95.0-100.0); THB 11.6 g/dL (11.5-17.4); pH(98.6) 7.42 (7.35-7.45)
[2018-09-09 01:30] LABS: MODALITY CANNULA; O2HB 88.5 % (95.0-99.0)
[2018-09-09] MEDS: D5W + KCL 20 MEQ 1,000 ML IV SCH (01:53)
[2018-09-09] MEDS: CARAFATE LIQUID PO SCH ×2 (01:54→11:09)
[2018-09-09] MEDS: MYCELEX TROCHE PO SCH ×2 (01:54→11:11)
[2018-09-09 04:17] LABS: HEMATOCRIT 29.5 % (37.0-47.0); HEMOGLOBIN 9.7 g/dL (12.0-16.0); MCH 27.9 PG (27-31); MCHC 32.9 g/dL (33-37); MCV 84.8 FL (81-99); MPV 12.4 FL (7.4-10.4); RBC 3.48 XMIL (4.2-5.4); RDW 18.7 % (11.5-14.5); WBC 4.29 X1000 (4.8-10.8)
[2018-09-09 04:49] LABS: INR 1.35; PROTIME 17.8 Seconds (11.0-16.0)
[2018-09-09 04:54] LABS: AGAP 15; ALB/GLOB RATIO 0.9; ALBUMIN 3.4 g/dL (3.5-5.0); ALKALINE PHOSPHATASE 152 U/L (32-104); BUN 46 mg/dL (8-22); CALCIUM 9.9 mg/dL (8.8-10.2); CHLORIDE 113 mmol/L (98-107); COSMO 309; CREATININE 0.8 mg/dL (0.5-0.9); ESTIMATED GFR > 60; GLUCOSE 176 mg/dL (70-104); GOT 23 U/L (10-30); GPT 15 U/L (10-36); POTASSIUM 3.3 mmol/L (3.5-5.1); SODIUM 147 mmol/L (136-145); TCO2 19 mmol/L (25-35); TOTAL BILIRUBIN 1.59 mg/dL (0.20-1.00)
--- NOTE | 2018-09-09 05:29 | Diag Imaging Result Doc PS360 ---
EXAM: CHEST-PORTABLE HISTORY: Dyspnea,Hypoxia TECHNIQUE: Portable chest single view COMPARISON: 09/07/2018 FINDINGS: No change in the right sided PICC line. There are dense infiltrates in the mid and lower lungs. These are much more pronounced than on the prior study. There are tiny pleural effusions. No cardiomegaly. IMPRESSION: Interval worsening. Electronically signed by Kevin Puga 09/09/2018 5:27 AM
[2018-09-09] MEDS: HUMULIN R SUBQ SCH (06:45)
[2018-09-09 08:32] LABS: ALLEN TEST YES; BE -4.4 mmoll (-3.0-3.0); BLOOD TYPE ARTERIAL; HCO3-(ACT) 21.4 mmoll (20.0-26.0); METHB 2.1 % (0.0-1.5); O2(CT) 11.4 mL/dL (15.0-23.0); O2HB 92.9 % (95.0-99.0); PCO2(98.6) 27 mmHg (35-45); PO2(98.6) 67 mmHg (60-100); SAMPLE BLOOD; SAO2 96.5 % (95.0-100.0); THB 8.7 g/dL (11.5-17.4); pH(98.6) 7.45 (7.35-7.45)
[2018-09-09 08:33] LABS: MODALITY NRB
[2018-09-09] MEDS ORDERED: LASIX IV ONE (09:01)
[2018-09-09] MEDS: MIRALAX PO SCH (11:10)
[2018-09-09] MEDS: METAMUCIL PO SCH (11:11)
[2018-09-09] MEDS: ICAR-C PO SCH (11:11)
[2018-09-09] MEDS: CENTRUM SILVER PO SCH (11:12)
[2018-09-09 11:21] VITALS: BP 114/61
[2018-09-09] MEDS: TEARISOL OPH SOLUTION BOTH EYES PRN (11:24)
[2018-09-09] MEDS: PROTONIX IV SCH (11:32)
[2018-09-09] MEDS: SODIUM CHLORIDE 0.9% INJ SCH (11:32)
[2018-09-09] MEDS: TIMOPTIC 0.5% OPH SOLUTION BOTH EYES SCH (11:35)
[2018-09-09] MEDS ORDERED: MORPHINE IV PRN (12:35)
[2018-09-09] MEDS ORDERED: ATROPINE 1 % OPHTH SOLN MISC PRN (12:36)
--- NOTE | 2018-09-09 17:11 | PROGRESS NOTE ---
DATE: 09/09/2018 SUBJECTIVE: This morning Ms. Hatch was very unresponsive. Chest was extremely congested. She was extremely tachypneic. The daughter was at the bedside at the time of the encounter. OBJECTIVELY: Vital Signs: Her vital signs at the time, blood pressure was over 114/63, pulse was about 103, respirations was 24, temperature 98.7 degrees. General: On exam, Ms. Hatch is a 73- year-old female. She was in bed. Obviously having respiratory distress. Mucosa is pink and moist. Chest: Air entry is bilaterally reduced. There are a lot of crackles and rhonchi in both lung esposito. Cardiovascular: Tachycardic, but no murmurs. Abdomen: Soft. Extremities: About 3+ pedal edema. Central Nervous System: The patient was unresponsive, will move barely the lower extremities to painful stimulation, but was nonverbal. LABORATORY DATA: WBC 4.29, hemoglobin 9.7, platelet count was 60,000. Chemistry was reviewed. Sodium 147, potassium 3.3, chloride 119, bicarbonate is 19, creatinine is 0.3. DIAGNOSTIC STUDIES: A chest x-ray, which was done early this morning, showed a dense infiltrate in the mid and lower lungs, interval worsening effusions, and no cardiomegaly. ASSESSMENT: 1. Worsening altered mental status. 2. Pancytopenia. 3. Extensive bilateral lower extremity deep vein thrombosis. 4. Multiple episodes of rectovaginal bleed. 5. Ascites, status post 6.1 liters removed. 6. 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 7. Cirrhosis of the liver. Etiology is unclear. 8. Acute kidney injury. 9. Electrolyte abnormality including hypernatremia and hypokalemia. 10. Poor performance status. 11. Suspected disseminated intravascular coagulation secondary to underlying cancer. 12. Acute hypoxemic respiratory failure. 13. Pulmonary edema. PLAN: This morning I had an extensive conversation with the daughter of Ms. Hatch. I did go over Ms. Hatch's current medical condition, which appears to be getting worse, an extremely poor prognosis, and the fact that she will probably not survive today. Ms. Hatch's daughter herself recognized the fact that the mother was deteriorating, is now gone into respiratory failure, and that the only next step will be to intubate and to resuscitate if she gets into cardiac arrest. She did state that at this juncture, she will rather have her mother as DNR level 1 and comfort care. She requested that we give her something for pain to keep her comfortable, but no Ativan. I have communicated this to the nursing staff. TIME SPENT: More than 30 minutes of conversation was done in the presence of Radha, the patient advocate. cc: Quinton Lucero MD
--- NOTE | 2018-09-10 05:41 | DISCHARGE SUMMARY ---
ADMISSION DATE: 08/13/2018 DISCHARGE DATE: 09/09/2018 DATE OF : 09/09/2018. TIME OF : 16:28. ADMISSION DIAGNOSES: 1. Metabolic encephalopathy. 2. Shock. 3. Acute kidney injury. 4. Respiratory failure. 5. Abnormal liver enzymes. DIAGNOSES AT THE TIME OF : 1. Acute hypoxemic respiratory failure. 2. Aspiration pneumonia. 3. Pulmonary edema. 4. Advanced metastatic colon from pancreatic cancer with peritoneal carcinomatosis. 5. Extensive bilateral lower extremity deep vein thrombosis. 6. Multiple episodes of rectovaginal bleed. 7. Altered mental status secondary to metabolic encephalopathy. 8. Cirrhosis of the liver, unclear etiology. 9. Acute kidney injury. 10. Electrolyte abnormalities. 11. Disseminated intravascular coagulation secondary to underlying malignancy. 12. Pancytopenia. 13. Poor performance status with generalized deconditioning and cachexia due to underlying malignancy. 14. Poor performance status. PRESENTING COMPLAINT: Altered mental status. HISTORY OF PRESENTING COMPLAINT: Ms. Hatch is a 73-year-old female who has been diagnosed with pancreatic cancer, diabetes, upper extremity DVT, and GI bleed a couple weeks ago who came to the emergency department with EMS because of altered mental status. Upon presentation the patient was found to be extremely hypotensive. Lactate level was 5.1. Sodium was 170. Creatinine had gone up to 2.3. The patient was subsequently admitted to ICU for further medical care. HOSPITAL COURSE: The patient was adequately hydrated and was started on broad- spectrum IV antibiotics and had to be intubated just a couple hours after admission because of respiratory failure. The patient remained intubated from 08/14/2018 until 08/21/2018 where she was successfully extubated and was transferred from the ICU to [facility] (step-down). During the hospital course the patient was seen by multiple subspecialties including Pulmonary Medicine, Hematology- Oncology, Nephrology, Surgery and ID. During the hospital course, Ms. Hatch's condition really did not improve continues to show decline every single day. Numerous providers had conversation with the daughter who was the power of dot etcher, The daughter dictated almost every single thing that needed to be done to the mother. At one point she was upset that certain pain medication and benzodiazepines were given to the mother even when the mother requested for them and that she was hurting. At one point I personally reached out to Dr. Abarca from [facility] ( patient's oncologist) and explained the situation to him, and he recommended that the patient goes on palliative/hospice care. I discussed this with Ms. Hatch; however, she was not going to make her mom go on hospice. In any case Ms. Hatch's condition continues to decline. [facility] was consulted at some point with consent from the daughter; however, the daughter did not call them back after the initial encounter. Ms. Hatch received multiple rounds of different types of antibiotics, she also got multiple blood products; however, her CBC numbers just continued to get worse. She could not be on anticoagulation because of life-threatening rectovaginal bleed that she had even during the hospital course. This morning, Ms. Hatch's condition continues to be very very very very critical. I discussed the clinical picture with the daughter in the presence of Ms. Garcia who is the patient advocate. The daughter has ultimately made her mom DNR level 1 and comfort care measures only. This afternoon at about 1628 I was called to come and see Ms. Hatch who was lifeless, the telemonitor showed asystole. When I came to evaluate Ms Hatch she was in bed, she was lifeless, she was not having any form of motion and no respiratory effort. On examination, she looks cold and rigid, there was no respiratory efforts, no heart sounds and no breathing sounds. She showed no cortical nor subcortical brain activity. Her EKG continued to show asystole. Ms. Hatch was subsequently pronounced at 1628. The daughter and another male family member was at the room at the time of this encounter and I told them about Ms. Hatch passing. The nurses will help arrange what is the next phase. cc: MD SHERRILL Vanessa
== END 2018-09-09 16:28 | disposition expired | DRG 870 ==
LOC: SUPCPDRO → ED 22:01 → ICU 22:02 → SUATTDRO 22:02 → 3S 08-28 00:57 → 3N 09-05 12:38
PROVIDERS: ATTEND Internal Medicine
CPT/HCPCS: 31500; 36430; 36569; 49083; 51702; 70450; 71010; 71045; 74000; 74018; 74181; 80048; 80053; 80074; 80101; 80301; 80307; 80324; 80345; 80346; 80353; 80358; 80361; 80365; 81001; 82042; 82150; 82270; 82378; 82550; 82570; 82805; 82948; 83010; 83036; 83605; 83615; 83735; 83880; 83992; 84100; 84134; 84156; 84157; 84300; 84439; 84443; 84481; 84484; 85025; 85027; 85049; 85379; 85384; 85610; 85730; 86022; 86038; 86039; 86850; 86900; 86901; 86920; 87040; 87045; 87046; 87070; 87075; 87077; 87088; 87186; 87205; 87324; 87449; 88112; 89051; 92526; 92610; 93005; 93970; 94002; 94003; 94150; 94761; 94762; 96365; 96366; 96375; 97162; 99285; 99291; A9270; C9113; G0431; G0434; G0479; G0480; J1644; J1720; J1940; J2020; J2060; J2185; J2250; J2270; J2405; J3475; J3480; J7030; J7040; J7050; J7070; P9012; P9016; P9035; P9047; S0164; XXXXX